=== PATIENT | female | born 1940 | race Caucasian/White ===

== ENCOUNTER 2016-04-25 15:37 | Inpatient (IN) ==
[2016-04-25] MEDS ORDERED: levoFLOXacin 750 MG TABLET PO ONE (15:49)
[2016-04-25] MEDS ORDERED: 0.9 % Sodium Chloride 1,000 ML IVC ONE (15:49)
[2016-04-25] MEDS ORDERED: Ipratropium/Albuterol Neb 3 ML IH ONE (15:49)
[2016-04-25] MEDS ORDERED: methylPREDNISolone 125 MG/2 ML VIAL IVP ONE (15:49)
[2016-04-25] MEDS ORDERED: HYDROcodone BIT/Homatropine 5 MG TABLET PO ONE (15:52)
[2016-04-25 17:36] LABS: VBG HCO3 27.6 mEq/L (21-27); VBG PH 7.48 pH Units (7.32-7.42)
[2016-04-25 17:44] LABS: BUN/Creatinine Ratio 19 (6-26); Blood Urea Nitrogen 18 mg/dL (7-20); Calcium 9.4 mg/dL (8.6-10.8); Carbon Dioxide 24 mEq/L (19-29); Chloride 105 mEq/L (98-109); Glucose 203 mg/dL (70-99); Osmolality,Calculated 300 (280-300); Potassium 3.9 mEq/L (3.5-4.5); Sodium 141 mEq/L (136-145); eGFR For African Americans > 60 (> 60); eGFR For Non-African Americans 57 (> 60)
[2016-04-25 18:02] LABS: Basophils % 0.5 %; Eosinophils # 0.1 K/mcL (0.0-0.6); Eosinophils % 0.8 %; Hematocrit 49.3 % (35.3-44.9); Hemoglobin 15.2 g/dL (11.5-15.4); Immature Granulocytes % 0.5 % (0-4); Lymphocytes # 1.6 K/mcL (0.6-4.6); Mean Corpuscular HGB Conc 30.8 g/dL (31.6-35.5); Mean Corpuscular Hemoglobin 30.5 pg (28.0-33.3); Mean Corpuscular Volume 98.8 fL (83.0-100.0); Mean Platelet Volume 9.2 fL (9.4-12.4); Monocytes % 11.8 %; Neutrophils # 5.8 K/mcL (1.6-8.9); Platelet Count 244 K/mcL (140-400); Red Blood Count 4.99 M/mcL (3.82-4.97); Red Cell Distribution Width 13.2 % (11.5-14.5); Segmented Neutrophils % 67.4 %
--- NOTE | 2016-04-25 20:56 | Emergency Department Note ---
Disposition Clinical Impression: Hypoxemia Dyspnea Qualifiers: Dyspnea type: shortness of breath Qualified Code(s): R06.02 - Shortness of breath Disposition: Admitted As Inpatient General Adult HPI - General Chief complaint: ED Shortness of Breath/Dyspnea Stated complaint: [place] Time Seen by Provider: 04/25/16 15:47 Source: patient Limitations: no limitations Nursing Notes Reviewed: Yes Vital Signs Reviewed: Yes - History of Present Illness HPI Narrative: 75-year-old female who presents with complaints of dyspnea for approximately 2 days. She admits to cough, wheezing. She recently was diagnosed with a upper respiratory tract infection approximately 3 weeks ago. This seemed to improve but 2 days ago she again developed dyspnea. She went to urgent care today and was given 1 DuoNeb, followed be hypoxic and sent to the ER for further evaluation. Stable on arrival, mild hypoxia noted, mild tachypnea, rhonchi bilaterally on arrival. Denies sick or ill contacts. Pain Scale: 0 - Related Data Home Medications Medication Instructions Recorded Confirmed Insulin ASPART [NovoLOG] 40 unit SQ TID 01/23/15 03/28/15 Insulin DETEMIR [Levemir] 80 unit SQ BID 01/23/15 03/28/15 Levothyroxine [Synthroid] 175 mcg PO 0630 01/23/15 03/28/15 Multivitamin [Multi-Day Vitamins] 1 each PO DAILY 01/23/15 03/28/15 Nitroglycerin 0.4 mg SL Q5MIN PRN 01/23/15 03/28/15 Nystatin Cream [Mycostatin Cream] 1 appl TP TID 01/23/15 01/23/15 Nystatin POWDER [Nystop] 1 appl TP TID 01/23/15 01/23/15 Nystatin SUSP [Mycostatin 5 ml PO QID 01/23/15 01/23/15 Suspension] Vitamin D3/Folic Acid [Ortho D 1 each PO DAILY 01/23/15 03/28/15 3,775 Unit-1 mg Cap] Cyclobenzaprine 10 mg PO BID 03/28/15 03/28/15 Gabapentin 300 mg PO HS 03/28/15 03/28/15 Lipitor 80 mg PO DAILY 03/28/15 03/28/15 Lisinopril 20 mg PO DAILY 03/28/15 03/28/15 Toprol Xl 25 mg PO DAILY 03/28/15 03/28/15 Previous Rx's Medication Instructions Recorded Aspirin Enteric Coated [Aspirin EC] 81 mg PO DAILY #30 tablet. 12/20/14 Allergies Allergy/AdvReac Type Severity Reaction Status Date / Time metformin [From Glucophage] AdvReac Diarrhea Verified 01/23/15 09:38 All systems ED: reviewed and negative except as stated. Past Medical History - Past Medical History Medical history: Reports: arthritis, cancer, coronary artery disease, diabetes, hyperlipidemia, hypertension, myocardial infarction, renal disease, other Surgical history: Reports: appendectomy, cancer surgery, cholecystectomy, hysterectomy, orthopedic, other Psychiatric history: Reports: anxiety, depression [employer] history: Reports: non-contributory - Social History Smoking Status: Former smoker Smokeless Tobacco Status: No Alcohol use: Reports: none Drug use: Reports: none Physical Exam [place] warm and dry no acute distress Pupils are equal and reactive to light, extra occular muscle movements are normal, TMs are clear bilaterally Trachea is midline ronchi bilaterally with superimposed wheezing mild tachycardia. Abdomen is soft and nontender, no peritonitis, guarding Extremities are well-perfused Neurovascular exam shows cranial nerves II through XII grossly intact no focal neurological deficit - General Limitations: no limitations General appearance: alert Course Vital Signs Temperature 97.7 F 04/25/16 15:41 Pulse Rate 116 04/25/16 15:41 Respiratory Rate 24 04/25/16 15:41 Blood Pressure 167/51 04/25/16 15:41 O2 Sat by Pulse Oximetry 93 L 04/25/16 15:41 Temperature 97.7 F 04/25/16 15:41 Pulse Rate 110 04/25/16 18:30 Respiratory Rate 20 04/25/16 18:30 Blood Pressure 131/83 04/25/16 18:30 O2 Sat by Pulse Oximetry 96 04/25/16 18:30 Oxygen Delivery Oxygen Delivery Nasal Cannula Medical Decision Making - [facility] Narrative Medical decision making narrative: Dyspnea, hypoxia, lactic acidosis. She did have elevation of her lactate despite IV fluids. We will continue IV hydration, turning a lactate. Levaquin was initiated, arellano cultures obtained. Chest x-ray shows no acute findings are a CT of the chest was questioning a infiltrate versus superimposed mass., Will need further evaluation to rule out underlying neoplastic process. Discussed CT findings with patient. Bronchodilators given, steroids given, continue antibiotic therapy. Admitted to care of hospitalist team. EKG shows sinus tachycardia with normal axis, short [place] interval, nonspecific ST segment changes nonspecific EKG - Medical Records Medical records reviewed: Yes I reviewed the patient's medical records. - Lab Data Lab results reviewed: Yes I reviewed the patient's lab results. Result diagrams: 04/25/16 17:22 04/25/16 17:25 Lab Results 04/25/16 04/25/16 04/25/16 Range/Units 17:22 17:22 17:22 WBC 8.6 (4.3-11.1) K/mcL RBC 4.99 H (3.82-4.97) M/mcL Hgb 15.2 (11.5-15.4) g/dL Hct 49.3 H (35.3-44.9) % MCV 98.8 (83.0-100.0) fL MCH 30.5 (28.0-33.3) pg MCHC 30.8 L (31.6-35.5) g/dL RDW 13.2 (11.5-14.5) % Plt Count 244 (140-400) K/mcL MPV 9.2 L (9.4-12.4) fL Immature Gran % 0.5 (0-4) % Seg Neutrophils % 67.4 % Lymphocytes % 19.0 % Monocytes % 11.8 % Eosinophils % 0.8 % Basophils % 0.5 % Neutrophils # 5.8 (1.6-8.9) K/mcL Lymphocytes # 1.6 (0.6-4.6) K/mcL Monocytes # 1.0 (0.0-1.3) K/mcL Eosinophils # 0.1 (0.0-0.6) K/mcL Basophils # 0.0 (0.0-0.2) K/mcL VBG pH (7.32-7.42) pH Units VBG pCO2 (41-51) mmHg VBG pO2 (25-40) mmHg VBG HCO3 (21-27) mEq/L Sodium (136-145) mEq/L Potassium (3.5-4.5) mEq/L Chloride (98-109) mEq/L Carbon Dioxide (19-29) mEq/L BUN (7-20) mg/dL Creatinine (0.57-1.11) mg/dL Est GFR ( Amer) (> 60) Est GFR (Non-Af Amer) (> 60) BUN/Creatinine Ratio (6-26) Glucose (70-99) mg/dL Calculated Osmolality (280-300) Lactic Acid 2.4 H (0.5-2.2) mmol/L Calcium (8.6-10.8) mg/dL Troponin I 0.01 (0-0.03) ng/mL B-Natriuretic Peptide (0-100) pg/mL Specimen Rejected 04/25/16 04/25/16 04/25/16 Range/Units 17:22 17:22 17:22 WBC (4.3-11.1) K/mcL RBC (3.82-4.97) M/mcL Hgb (11.5-15.4) g/dL Hct (35.3-44.9) % MCV (83.0-100.0) fL MCH (28.0-33.3) pg MCHC (31.6-35.5) g/dL RDW (11.5-14.5) % Plt Count (140-400) K/mcL MPV (9.4-12.4) fL Immature Gran % (0-4) % Seg Neutrophils % % Lymphocytes % % Monocytes % % Eosinophils % % Basophils % % Neutrophils # (1.6-8.9) K/mcL Lymphocytes # (0.6-4.6) K/mcL Monocytes # (0.0-1.3) K/mcL Eosinophils # (0.0-0.6) K/mcL Basophils # (0.0-0.2) K/mcL VBG pH 7.48 H (7.32-7.42) pH Units VBG pCO2 37 L (41-51) mmHg VBG pO2 115 H (25-40) mmHg VBG HCO3 27.6 H (21-27) mEq/L Sodium (136-145) mEq/L Potassium (3.5-4.5) mEq/L Chloride (98-109) mEq/L Carbon Dioxide (19-29) mEq/L BUN (7-20) mg/dL Creatinine (0.57-1.11) mg/dL Est GFR ( Amer) (> 60) Est GFR (Non-Af Amer) (> 60) BUN/Creatinine Ratio (6-26) Glucose (70-99) mg/dL Calculated Osmolality (280-300) Lactic Acid (0.5-2.2) mmol/L Calcium (8.6-10.8) mg/dL Troponin I (0-0.03) ng/mL B-Natriuretic Peptide 30 (0-100) pg/mL Specimen Rejected Clotted 04/25/16 04/25/16 Range/Units 17:25 19:09 WBC (4.3-11.1) K/mcL RBC (3.82-4.97) M/mcL Hgb (11.5-15.4) g/dL Hct (35.3-44.9) % MCV (83.0-100.0) fL MCH (28.0-33.3) pg MCHC (31.6-35.5) g/dL RDW (11.5-14.5) % Plt Count (140-400) K/mcL MPV (9.4-12.4) fL Immature Gran % (0-4) % Seg Neutrophils % % Lymphocytes % % Monocytes % % Eosinophils % % Basophils % % Neutrophils # (1.6-8.9) K/mcL Lymphocytes # (0.6-4.6) K/mcL Monocytes # (0.0-1.3) K/mcL Eosinophils # (0.0-0.6) K/mcL Basophils # (0.0-0.2) K/mcL VBG pH (7.32-7.42) pH Units VBG pCO2 (41-51) mmHg VBG pO2 (25-40) mmHg VBG HCO3 (21-27) mEq/L Sodium 141 (136-145) mEq/L Potassium 3.9 (3.5-4.5) mEq/L Chloride 105 (98-109) mEq/L Carbon Dioxide 24 (19-29) mEq/L BUN 18 (7-20) mg/dL Creatinine 0.96 (0.57-1.11) mg/dL Est GFR ( Amer) > 60 (> 60) Est GFR (Non-Af Amer) 57 L (> 60) BUN/Creatinine Ratio 19 (6-26) Glucose 203 H (70-99) mg/dL Calculated Osmolality 300 (280-300) Lactic Acid 2.9 H (0.5-2.2) mmol/L Calcium 9.4 (8.6-10.8) mg/dL Troponin I (0-0.03) ng/mL B-Natriuretic Peptide (0-100) pg/mL Specimen Rejected
[2016-04-25] MEDS ORDERED: 0.9 % Sodium Chloride 1,000 ML IVC SCH (21:00)
[2016-04-25] MEDS ORDERED: Dextrose Gel 15 GM PO PRN ×2 (23:44)
[2016-04-25] MEDS ORDERED: Ondansetron 4 MG/2 ML VIAL IVP PRN (23:44)
[2016-04-25] MEDS ORDERED: *HR* Dextrose 50 % in Water (Syg) 50 ML SYRINGE IVP PRN (23:44)
[2016-04-25] MEDS ORDERED: Naloxone 0.4 MG/ML INJ IVP PRN (23:44)
[2016-04-25] MEDS ORDERED: D5% in Water 1,000 ML IV PRN (23:44)
[2016-04-25] MEDS ORDERED: *HR* Morphine 2 MG/ML SYRINGE IVP PRN (23:44)
[2016-04-25] MEDS ORDERED: 0.9 % Sodium Chloride w KCl 20 MEQ/1,000 ML MLS IVC SCH (23:45)
[2016-04-25] MEDS ORDERED: INSULIN DETEMIR 80 UNIT SQ SCH (23:45)
[2016-04-25] MEDS ORDERED: Nitroglycerin 0.4 MG TAB.SUBL SL PRN (23:53)
[2016-04-26] MEDS ORDERED: *HR* Heparin 5,000 UNIT/ML VIAL SQ SCH
[2016-04-26 00:15] LABS: Basophils % 0.3 %; Hematocrit 47.2 % (35.3-44.9); Hemoglobin 14.5 g/dL (11.5-15.4); Immature Granulocytes % 0.4 % (0-4); Lymphocytes # 0.6 K/mcL (0.6-4.6); Lymphocytes % 8.2 %; Mean Corpuscular HGB Conc 30.7 g/dL (31.6-35.5); Mean Corpuscular Hemoglobin 30.1 pg (28.0-33.3); Mean Corpuscular Volume 98.1 fL (83.0-100.0); Mean Platelet Volume 9.3 fL (9.4-12.4); Monocytes # 0.1 K/mcL (0.0-1.3); Monocytes % 0.8 %; Neutrophils # 6.5 K/mcL (1.6-8.9); Platelet Count 274 K/mcL (140-400); Red Blood Count 4.81 M/mcL (3.82-4.97); Red Cell Distribution Width 13.2 % (11.5-14.5); Segmented Neutrophils % 90.3 %
--- NOTE | 2016-04-26 00:20 | Internal Med History&Physical ---
Date of Encounter: 04/25/16 Time of Encounter: 23:25 Assessment and Plan (1) Pneumonia Current visit: Yes Status: Acute 1. Will follow blood cultures. 2. Collect sputum culture and nasal swab for influenza. 3. Will treat with IV antibiotics, oxygen, and aerosols PRN. 4. Will need close outpatient follow up with repeat CT scan within 2 months to document resolution and rule out malignancy. Discussed with patient at length and recommend she follow closely with PCP. Qualifiers: Pneumonia type: due to unspecified organism Laterality: right Lung location: upper lobe of lung Qualified Code(s): J18.1 - Lobar pneumonia, unspecified organism (2) Acute hypoxemic respiratory failure Current visit: Yes Status: Acute 1. Continue supportive measures with Oxygen and aerosols. 2. IF decompensates, will try BiPap and/or ETT/mechanical ventilation if necessary. (3) IDDM (insulin dependent diabetes mellitus) Current visit: Yes Status: Chronic 1. Continue home Levemir dosing and SSI. 2. Monitor glucose and adjust dosing as needed. (4) CAD (coronary artery disease) Current visit: Yes Status: Chronic 1. Monitor serial troponins and EKG. 2. Continue home meds as appropriate. Qualifiers: Coronary Disease-Associated Artery/Lesion type: [place] artery [place] vs. transplanted heart: [place] heart Associated angina: without angina Qualified Code(s): I25.10 - Atherosclerotic heart disease of [place] coronary artery without angina pectoris (5) DVT prophylaxis Current visit: Yes Status: Acute 1. Heparin SQ. Internal Medicine - H&P: HPI Chief complaint: SOB; productive cough Admitted From: Emergency Dept Plans for Post Hospital Care: Home History of present illness: Ms. Em is a 75 year old female [facility]2 week history of cough, chest congestion, shortness of breath, and subjective fevers and chills. She never sought treatment for this and her symptoms resolved roughly 5 days ago. Then 2 days ago, her symptoms returned and her cough was significant for a more productive of purulent sputum, shortness of breath was much worse, and she actually started wheezing which she has not done in several years. She also has some mild pleuritic chest pain with a productive cough. This prompted her to go to ER for evaluation where she was seen and diagnosed with presumptive pneumonia. She was subsequently admitted to hospitalist service. Upon my assessment of the patient, she feels much better after having received some aerosols, oxygen, and cough suppressant. She reiterates the above history. She denies any hemoptysis. She is a former smoker but quit about 30 years ago. I reviewed the CT scan report and discussed with her the findings. Although the history and exam are suggestive of pneumonia, close follow-up is recommended for the remote possibility of malignancy. She does have a history of kidney cancer treated surgically about 20 years ago by partial nephrectomy. She also had history of uterine cancer treated by hysterectomy. To her knowledge, there has been no recurrence of cancer. I explained this to the patient and recommended close follow-up with her PCP and repeat CT scan within 2 months. She voiced understanding and agrees with the recommendations. Past Med Surg Social Fam HX - Past Medical History Attestation: Yes The following information was validated with the patient. Source: patient, old records reviewed Medical history: arthritis, cancer (kidney cancer and uterine cancer), coronary artery disease, diabetes, hyperlipidemia, hypertension, myocardial infarction, renal disease, other Psychiatric history: anxiety, depression - Past Surgical History Surgical History: appendectomy, cancer surgery (partial nephrectomy), cholecystectomy, hysterectomy, orthopedic, other, JUAN/BSO - Social History Smoking Status: Former smoker Smokeless Tobacco Status: No Alcohol use: none Drug use: none Current living situation: Home, With Family Activity Level: Independent ambulation Recent Out of Country Travel Within the Last 8 Weeks: No - Family History Father Living Status: Hx Family Cardiac Disorders: Yes Mother Adopted: No Family Member Ethnicity: Non- Living Status: Hx Family Cardiac Disorders: Yes Hx Family Respiratory Disorders: No Hx Family Cancer: No Hx Family GI Disorders: No Hx Family Endocrine Disorder: No Hx Family Neuromuscular Disorders: No Hx Family Neurologic Disorders: No Hx Family HEENT Disorders: Yes Hx Family Autoimmune Disorders: No Internal Medicine - H&P: Meds Aspirin Enteric Coated [Aspirin EC] 81 mg PO DAILY #30 tablet. 12/20/14 [Rx] Insulin ASPART [NovoLOG] 40 unit SQ TID 01/23/15 [History] Insulin DETEMIR [Levemir] 80 unit SQ BID 01/23/15 [History] Levothyroxine [Synthroid] 175 mcg PO 0630 01/23/15 [History] Multivitamin [Multi-Day Vitamins] 1 each PO DAILY 01/23/15 [History] Nitroglycerin 0.4 mg SL Q5MIN PRN 01/23/15 [History] Nystatin Cream [Mycostatin Cream] 1 appl TP TID 01/23/15 [History] Nystatin POWDER [Nystop] 1 appl TP TID 01/23/15 [History] Nystatin SUSP [Mycostatin Suspension] 5 ml PO QID 01/23/15 [History] Vitamin D3/Folic Acid [Ortho D 3,775 Unit-1 mg Cap] 1 each PO DAILY 01/23/15 [ History] Cyclobenzaprine 10 mg PO BID 03/28/15 [History] Gabapentin 300 mg PO HS 03/28/15 [History] Lipitor 80 mg PO DAILY 03/28/15 [History] Lisinopril 20 mg PO DAILY 03/28/15 [History] Toprol Xl 25 mg PO DAILY 03/28/15 [History] Allergies metformin [From Glucophage] Adverse Reaction (Verified 01/23/15 09:38) Diarrhea - Constitutional Constitutional: chills, fever(s), no night sweats - EENT Eyes: no blurry vision, no change in vision Ears: no ear pain, no tinnitus Nose, mouth and throat: nasal congestion, no sinus pain, no sinus pressure, no sore throat - Cardiovascular Cardiovascular ROS IM: dyspnea, dyspnea on exertion, no chest pain, no diaphoresis, no syncope - Respiratory Respiratory: cough, dyspnea, dyspnea on exertion, wheezing, chest congestion, excessive phlegm production, change in phlegm color, pain with cough, no hemoptysis - Gastrointestinal Gastrointestinal: nausea, no abdominal pain, no diarrhea, no hematemesis, no hematochezia, no melena, no vomiting - Genitourinary Genitourinary: no dysuria, no flank pain, no hematuria - Musculoskeletal Musculoskeletal ROS IM: no arthralgias, no back pain - Integumentary Integumentary IM: no rash, no jaundice - Neurological Neurological ROS: no dizziness, no focal weakness, no headache(s) - Psychiatric Psychiatric: no anxiety, no depression - Endocrine Endocrine IM: polydipsia, polyuria, no cold intolerance, no heat intolerance - Hematologic/Lymphatic Hematologic/Lymphatic: no easy bruising, no lymphadenopathy - Allergic/Immunologic Allergic/Immunologic: wheezing, no GI upset with certain foods - Constitutional Vitals: Temp Pulse Resp BP Pulse Ox 98.4 F 115 16 153/95 97 04/25/16 23:47 04/25/16 23:47 04/25/16 23:47 04/25/16 23:47 04/25/16 23:47 General appearance: Present: cooperative, mild distress, A&O X 3, pleasant, answers questions appropriately - Head Head exam: Present: atraumatic, normal inspection - Expanded Head Exam Head exam expanded: Absent: abrasion, contusion, general tenderness - Eye Eye exam: Present: EOMI, normal appearance, PERRL. Absent: scleral icterus Pupils: Present: normal accommodation - ENT ENT exam: Present: mucous membranes dry, normal exam, normal oropharynx - Neck Neck exam general surgery: Present: full ROM, supple. Absent: lymphadenopathy, thyromegaly - Expanded Neck Exam Neck exam: Absent: carotid bruit - Respiratory Respiratory exam: Present: rales (RUL), respiratory distress (mild), rhonchi, wheezes (rare scattered). Absent: accessory muscle use, chest wall tenderness, CTAB, tachypnea - Cardiovascular Cardiovascular exam: Present: distant heart sounds, RRR, +S1, +S2. Absent: diastolic murmur, systolic murmur - GI/Abdominal GI/Abdominal exam: Present: normal bowel sounds, soft. Absent: guarding, hepatomegaly, mass, rebound, splenomegaly, tenderness - Extremities Exam Extremities exam: Present: full ROM, warm. Absent: calf tenderness, joint swelling - Back Exam Back exam: Present: normal inspection. Absent: CVA tenderness (L), CVA tenderness (R) - Neurological Exam Neurological exam: Present: alert, CN II-XII intact, oriented X3, no focal deficits - Psychiatric Psychiatric exam: Present: normal affect, normal mood - Skin Skin exam: Present: dry, warm. Absent: rash Internal Med - H&P Results - Labs CBC & Chem 7: 04/25/16 17:22 04/25/16 17:25 - EKG Data -: EKG Interpreted by Myself - EKG Data Prior EKG available for review: no EKG comments: 04/26/16 00:24 Sinus tachycardia; no acute ST-T changes - Diagnostic Studies Chest x-ray Status: image reviewed by me (hazy RUL; no definite infiltrate) CT scan - chest Additional comments: report reviewed
[2016-04-26 00:29] LABS: Albumin 2.9 g/dL (3.5-5.0); Albumin/Globulin Ratio 0.8 (1.1-2.2); Bilirubin,Total 0.5 mg/dL (0.2-1.2); Calcium 9.2 mg/dL (8.6-10.8); Chol/HDL Ratio 4.5 (0-4.9); Globulin 3.5 g/dL (2.4-3.5); Magnesium 1.7 mg/dL (1.6-2.6); Total Protein 6.4 g/dL (6.0-8.3)
[2016-04-26] MEDS ORDERED: *HR* Heparin 5,000 UNIT/ML VIAL IVP PRN ×2 (00:44)
[2016-04-26] MEDS ORDERED: *HR* Heparin 5,000 UNIT/ML VIAL IVP ONE (00:44)
[2016-04-26] MEDS ORDERED: Heparin 25,000 UNIT/500 ML D5W 25,000 UNIT/500 ML MLS IVC SCH (00:45)
--- NOTE | 2016-04-26 00:47 | Event Note ---
Date of Encounter: 04/26/16 Time of Encounter: 00:46 Repeat troponin is 0.86. Given CAD history and respiratory failure, will start heparin gtt and order ECHO in am. Suspect troponin elevation due to pneumonia and hypoxemia (demand ischemia), but will monitor and treat for ACS.
[2016-04-26] MEDS: Ipratropium/Albuterol Neb 3 ML IH SCH ×5 (01:11→22:24)
[2016-04-26] MEDS: Insulin DETEMIR 100 UNIT/ML per UNIT SQ SCH ×3 (01:27→20:47)
[2016-04-26] MEDS: 0.9 % Sodium Chloride 1,000 ML IVC SCH ×4 (01:53→20:46)
[2016-04-26] MEDS: Acetaminophen 325 MG TABLET PO PRN ×2 (06:19→14:56)
[2016-04-26] MEDS: Albuterol 2.5 MG/3 ML NEBULIZER IH PRN (08:02)
[2016-04-26] MEDS: FOLIC ACID PO SCH (08:25)
[2016-04-26] MEDS: VITAMIN D3 PO SCH (08:25)
[2016-04-26] MEDS: Metoprolol XL (24 HR) Succ 25 MG TAB.ER.24H PO SCH (08:33)
[2016-04-26] MEDS: Multivit/Ca/Min/Fe/FA 1 TAB TABLET PO SCH (08:33)
[2016-04-26] MEDS: Aspirin Enteric Coated 81 MG Tablet PO SCH (08:33)
[2016-04-26] MEDS: Insulin LISPRO 300 UNITS/3 ML VIAL SQ SCH ×3 (08:34→17:26)
[2016-04-26] MEDS ORDERED: Lisinopril 20 MG TABLET PO SCH (09:00)
[2016-04-26] MEDS: Azithromycin 500 MG in D5% in Water 250 ML IVPB SCH (09:38)
--- NOTE | 2016-04-26 11:14 | Internal Med Progress Note ---
Date of Encounter: 04/26/16 Time of Encounter: 11:11 - Assessment and plan (1) Pneumonia Current Visit: Yes Status: Acute Assessment and plan: Patient with both clinical and radiological findings consistent with pneumonia. CT scan of the chest revealed a nonspecific 4.2 cm focus of groundglass opacity within the perihilar partial of the right upper lobe demonstrating a few internal nodular foci. Based on the patient's history of malignancy, the differential diagnoses includes metastatic disease, although primary lung cancer cannot be ruled out. At this point we will continue with IV antibiotics , Rocephin and azithromycin. She had a mild elevation of troponins. I do believe that this mild troponin elevation secondary to the underlying infection. Chest pain, and the troponin went down when it was rechecked. Upon review of prior records, this is not the first time in which she has elevation of troponins. She had a similar event back in November 2014. At this point I will stop the heparin drip. The patient is a morbidly obese lady, she has an underlying obstructive sleep apnea. I ordered BiPAP while in the hospital. PT OT evaluation. Evaluation with our professor of social work Department will be requested. The patient reportedly does not use BiPAP or CPAP at home. She has an acute kidney injury, we will continue with iv hydration and stop ROOSEVELT inhibitor. Increased potassium levels, ROOSEVELT inhibitors were stopped, will give a dose of Kayexalate today. We will continue monitoring electrolytes tomorrow in a.m. Qualifiers: Pneumonia type: due to unspecified organism Laterality: right Lung location: upper lobe of lung Qualified Code(s): J18.1 - Lobar pneumonia, unspecified organism (2) Morbid obesity Current Visit: Yes Status: Acute Qualifiers: Obesity type: unspecified obesity type Qualified Code(s): E66.01 - Morbid ( severe) obesity due to excess calories (3) MALLORY (obstructive sleep apnea) Current Visit: Yes Status: Acute (4) DVT prophylaxis Current Visit: Yes Status: Acute (5) Dyspnea Current Visit: Yes Status: Acute Qualifiers: Dyspnea type: shortness of breath Qualified Code(s): R06.02 - Shortness of breath (6) CAD (coronary artery disease) Current Visit: Yes Status: Chronic Qualifiers: Coronary Disease-Associated Artery/Lesion type: [place] artery [place] vs. transplanted heart: [place] heart Associated angina: without angina Qualified Code(s): I25.10 - Atherosclerotic heart disease of [place] coronary artery without angina pectoris (7) IDDM (insulin dependent diabetes mellitus) Current Visit: Yes Status: Chronic (8) Acute kidney injury Current Visit: No Status: Acute - Time Spent With Patient 25 - 35 minutes - Subjective Interval history: Patient was seen and examined. She states that was complaining of cough and progressive shortness of breath for the last 3 weeks. Cough is productive. She denies chest pain. - Constitutional Vitals: Temp Pulse Resp BP Pulse Ox 98.3 F 114 20 114/74 95 04/26/16 10:07 04/26/16 10:07 04/26/16 10:07 04/26/16 10:07 04/26/16 10:07 General appearance: Present: cooperative, mild distress, A&O X 3, morbidly obese , pleasant, answers questions appropriately Exam: The patient is alert, awake, oriented, she is a moderately obese, patient lady. She does not seem to be in respiratory distress during my encounter with her. Breath sounds are diminished in both lung issa. No tenderness in the abdomen area. No tenderness in the lower extremities. - Head Head exam: Present: atraumatic, normocephalic - Eye Eye exam: Present: PERRL, conjuntiva pink, sclera anicteric Pupils: Present: PERRL - Neck Neck exam general surgery: Present: supple, trachea midline. Absent: lymphadenopathy - Respiratory Respiratory exam: Present: decreased breath sounds. Absent: accessory muscle use, rales, rhonchi, wheezes - Cardiovascular Cardiovascular exam: Present: RRR, +S1, +S2. Absent: diastolic murmur, gallop, rubs, systolic murmur - GI/Abdominal GI/Abdominal exam: Present: normal bowel sounds, soft, no peritoneal signs. Absent: distended, tenderness - Extremities Exam Extremities exam: Present: warm, radial pulses palpable and symetrical. Absent : calf tenderness, cyanotic, pedal edema - Neurological Exam Neurological exam: Present: CN II-XII intact, oriented X3, no focal deficits. Absent: pronater drift, facial droop, speech deficit - Skin Skin exam: Present: dry, intact Internal Medicine: Result - Labs CBC & Chem 7: 04/26/16 00:06 04/26/16 00:06 Labs: Short CBC 04/26/16 Range/Units 00:06 WBC 7.2 (4.3-11.1) K/mcL Hgb 14.5 (11.5-15.4) g/dL Hct 47.2 H (35.3-44.9) % Plt Count 274 (140-400) K/mcL Neutrophils # 6.5 (1.6-8.9) K/mcL BMP 04/26/16 00:06 Sodium 139 Potassium 5.0 H D Chloride 104 Carbon Dioxide 22 BUN 21 H Creatinine 1.22 H Glucose 493 H Calcium 9.2 Cardiac Enzymes 04/26/16 04/26/16 Range/Units 00:06 06:38 Troponin I 0.86 H* 0.01 (0-0.03) ng/mL Liver Function 04/26/16 Range/Units 00:06 Total Bilirubin 0.5 (0.2-1.2) mg/dL AST 26 (5-34) Units/L ALT 34 (0-55) Units/L Alkaline Phosphatase 154 H (38-126) Units/L Albumin 2.9 L (3.5-5.0) g/dL Consult Discharge Plan - Plan Referrals: Corinne Mullins, NUTRITION MANAGER [Primary Care Provider] -
[2016-04-26] MEDS ORDERED: Perflutren Lipid Microsphere 1.3 ML in 0.9 % Sodium Chloride 8.7 ML IVP ONE ×2 (11:56→12:15)
--- NOTE | 2016-04-26 15:09 | ECHO - Doppler Report ---
Echo with Imaging Enhancement Agent Name: Deanna Em Date of Study: 04/26/2016 Date: 1940 Ht: 68.0 in Medical Record#: [id number] Age: 75 Wt: 335.0 lb Gender: Female BSA: 2.54 Order #: [id number] Location: [facility] Room #: 3A45 Reading Physician: Jere Zheng DO, FACC, MAIKEL NICOLAS Primer Inserting Machine Adjuster: Kimberly Stoddard RVT, RDCS Ordering Physician: Duc Tejeda MD Primary Physician: Corinne Mullins CNP Indications: ELEVATED TROPONINS, Shortness of breath Impressions: LVEF 60-65%. Grossly normal LV chamber size, wall thickness and function. Mild left ventricular diastolic dysfunction. Right ventricle was not well visualized. Grossly, it appears to demonstrate normal function. Valves not well visualized. No obvious significant valvular dysfunction. No evidence of pulmonary hypertension identified. RVSP not well obtained and could be underestimated. Left Ventricular Wall Motion: Rest Echo Findings All wall segments showed normal motion. Findings: Study Quality * Technically sub-optimal due to body habitus. ECG Findings * Sinus tachycardia. Left Ventricle * LVEF 60-65%. * Grossly normal LV chamber size, wall thickness and function. * Mild left ventricular diastolic dysfunction. Right Ventricle * Right ventricle was not well visualized. Grossly, it appears to demonstrate normal function. Left Atrium * Mildly dilated left atrium. Right Atrium * Right atrium is not well visualized. Interatrial Septum * Interatrial septum not well evaluated. Aortic Valve * Aortic valve not well visualized. * No aortic regurgitation. * No aortic stenosis. Mitral Valve * Mitral valve not well visualized. * No mitral regurgitation. * No mitral stenosis. Tricuspid Valve * Tricuspid valve not well visualized. * Trace tricuspid regurgitation. * No evidence of pulmonary hypertension. RVSP not well obtained and could be underestimated. Pulmonic Valve * Pulmonic valve not well visualized. Aorta * Grossly, normally sized aortic root. Pericardium * The pericardium appears normal. IVC * The IVC is not well evaluated. Pulmonary Artery * Pulmonary artery not well visualized. History Hypertension Diabetes Hypercholesteremia Family History of CAD History of CAD/PTCA Myocardial Infarction 2014 a Previous Echo was performed. Measurements: BP: 114/ 74 2D Normal Values IVSd: .80 cm 0.6 - 1.0 cm LVIDd: 4.10 cm 3.7 - 5.6 cm LVPWd: 1.00 cm 0.6 - 1.1 cm LVIDs: 2.90 cm 1.5 - 3.6 cm AO: 2.60 cm < 4.0 cm LA: 2.70 cm 2.0 - 4.0cm %FS: 29.30 cm >25 % LA volume: 44 Mitral Valve Peak E:.66 m/sec Peak A:1.17 m/sec E/A Ratio:0.6 Tricuspid Valve TV Regurg Peak Grad: 10.00mmHg TV Regurg Peak Maurilio: 1.55m/sec Updated by Jere hZeng DO, FACAlfredo, MARIA ISABEL, MAIKEL on 04/26/2016 3:04:12 PM electronically signed on 04/26/2016 3:05:33 PM with status of Final Wall Motion Ramirez: 1=Normal, 2=Hypokinesis, 3=Akinesis, 4=Dyskinesis, 5=Aneurysmal, 6=Hyperkinetic, X=Not Visualized (Blank)=Missing
[2016-04-26] MEDS: *HR* Heparin 5,000 UNIT/ML VIAL SQ SCH (17:56)
[2016-04-26] MEDS: Insulin DETEMIR 100 UNIT/ML X5UNITS SQ SCH (20:50)
[2016-04-26] MEDS ORDERED: traMADol 50 MG TABLET PO PRN (20:59)
[2016-04-26] MEDS ORDERED: Ketorolac 15 MG/ML VIAL IM ONE (20:59)
[2016-04-26] MEDS: Loratadine 10 MG TABLET PO SCH (21:23)
[2016-04-26] MEDS: Fluticasone Propionate Nasal 50 MCG/SPRAY BOTTLE NS SCH (21:44)
[2016-04-27] MEDS: Benzonatate 100 MG CAPSULE PO PRN ×2 (00:16→13:37)
[2016-04-27 04:06] LABS: Basophils # 0.1 K/mcL (0.0-0.2); Basophils % 0.6 %; Eosinophils # 0.2 K/mcL (0.0-0.6); Eosinophils % 1.6 %; Hematocrit 39.6 % (35.3-44.9); Immature Granulocytes % 0.3 % (0-4); Lymphocytes # 2.5 K/mcL (0.6-4.6); Lymphocytes % 26.1 %; Mean Corpuscular HGB Conc 30.8 g/dL (31.6-35.5); Mean Corpuscular Hemoglobin 30.7 pg (28.0-33.3); Mean Corpuscular Volume 99.5 fL (83.0-100.0); Mean Platelet Volume 9.3 fL (9.4-12.4); Monocytes # 1.1 K/mcL (0.0-1.3); Monocytes % 11.6 %; Neutrophils # 5.7 K/mcL (1.6-8.9); Platelet Count 218 K/mcL (140-400); Red Blood Count 3.98 M/mcL (3.82-4.97); Red Cell Distribution Width 13.5 % (11.5-14.5); Segmented Neutrophils % 59.8 %
[2016-04-27 04:10] LABS: Hemoglobin 12.2 g/dL (11.5-15.4)
[2016-04-27] MEDS: Ipratropium/Albuterol Neb 3 ML IH SCH ×4 (04:17→21:01)
[2016-04-27 04:22] LABS: BUN/Creatinine Ratio 25 (6-26); Blood Urea Nitrogen 16 mg/dL (7-20); Calcium 7.3 mg/dL (8.6-10.8); Carbon Dioxide 26 mEq/L (19-29); Chloride 114 mEq/L (98-109); Glucose 151 mg/dL (70-99); Osmolality,Calculated 304 (280-300); Potassium 3.6 mEq/L (3.5-4.5); Sodium 145 mEq/L (136-145); eGFR For African Americans > 60 (> 60); eGFR For Non-African Americans > 60 (> 60)
[2016-04-27] MEDS: *HR* Heparin 5,000 UNIT/ML VIAL SQ SCH ×2 (06:15→18:01)
[2016-04-27] MEDS: Albuterol 2.5 MG/3 ML NEBULIZER IH PRN (06:39)
[2016-04-27] MEDS: Azithromycin 500 MG in D5% in Water 250 ML IVPB SCH (07:00)
[2016-04-27] MEDS: VITAMIN D3 PO SCH (07:37)
[2016-04-27] MEDS: FOLIC ACID PO SCH (07:37)
[2016-04-27] MEDS: Insulin LISPRO 300 UNITS/3 ML VIAL SQ SCH ×4 (07:49→16:58)
[2016-04-27] MEDS: Loratadine 10 MG TABLET PO SCH (07:51)
[2016-04-27] MEDS: Aspirin Enteric Coated 81 MG Tablet PO SCH (07:51)
[2016-04-27] MEDS: Fluticasone Propionate Nasal 50 MCG/SPRAY BOTTLE NS SCH (07:53)
[2016-04-27] MEDS: Metoprolol XL (24 HR) Succ 25 MG TAB.ER.24H PO SCH (07:55)
[2016-04-27] MEDS: Multivit/Ca/Min/Fe/FA 1 TAB TABLET PO SCH (07:55)
[2016-04-27] MEDS: Insulin DETEMIR 100 UNIT/ML X5UNITS SQ SCH ×2 (07:58→20:39)
--- NOTE | 2016-04-27 11:06 | Internal Med Progress Note ---
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 CT scan of the chest revealed a nonspecific 4.2 cm focus of groundglass opacity within the perihilar partial of the right upper lobe demonstrating a few internal nodular foci. Based on the patient's history of malignancy, the differential diagnoses includes metastatic disease, although primary lung cancer cannot be ruled out. At this point we will continue with IV antibiotics, Rocephin and azithromycin. Qualifiers: Pneumonia type: due to unspecified organism Laterality: right Lung location: upper lobe of lung Qualified Code(s): J18.1 - Lobar pneumonia, unspecified organism (4) IDDM (insulin dependent diabetes mellitus) Current Visit: Yes Status: Chronic Assessment and plan: Adjusted insulin therapy due to persistent hyperglycemia added Novolog 10units qAC continue Levemir continue sliding scale algorithm monitor fingerstick and blood glucose (5) MALLORY (obstructive sleep apnea) Current Visit: Yes Status: Acute Assessment and plan: Bipap at bedtime (6) CAD (coronary artery disease) Current Visit: Yes Status: Chronic Assessment and plan: No anginal symptoms present continue home medications Qualifiers: Coronary Disease-Associated Artery/Lesion type: [place] artery [place] vs. transplanted heart: [place] heart Associated angina: without angina Qualified Code(s): I25.10 - Atherosclerotic heart disease of [place] coronary artery without angina pectoris (7) DVT prophylaxis Current Visit: Yes Status: Acute Assessment and plan: Heparin SQ (8) Morbid obesity Current Visit: Yes Status: Chronic Assessment and plan: The patient is a morbidly obese, she has an underlying obstructive sleep apnea. BiPAP while in the hospital. PT OT evaluation. Qualifiers: Obesity type: unspecified obesity type Qualified Code(s): E66.01 - Morbid ( severe) obesity due to excess calories - Subjective Interval history: Patient seen and examined present at that site. Patient reports of having difficulty breathing and states she is not on home oxygen. Reports of having 30+ years of smoking history. No overnight issues were reported - Constitutional Vitals: Temp Pulse Resp BP Pulse Ox 98.0 F 102 18 109/73 96 04/27/16 07:05 04/27/16 07:05 04/27/16 07:05 04/27/16 07:05 04/27/16 08:00 General appearance: Present: cooperative, mild distress (mild respiratory distress ), A&O X 3, morbidly obese, pleasant, answers questions appropriately - Head Head exam: Present: atraumatic, normocephalic - Eye Eye exam: Present: conjuntiva pink, sclera anicteric - Respiratory Respiratory exam: Present: wheezes (bilateral expiratory wheezing, coarse breath sounds bilaterally) - Cardiovascular Cardiovascular exam: Present: RRR, +S1, +S2 - GI/Abdominal GI/Abdominal exam: Present: distended (obese), normal bowel sounds, soft. Absent: tenderness - Extremities Exam Extremities exam: Present: warm, radial pulses palpable and symetrical. Absent : calf tenderness, pedal edema Internal Medicine: Result - Labs CBC & Chem 7: 04/27/16 03:58 04/27/16 03:58 Labs: Short CBC 04/27/16 Range/Units 03:58 WBC 9.6 (4.3-11.1) K/mcL Hgb 12.2 D (11.5-15.4) g/dL Hct 39.6 (35.3-44.9) % Plt Count 218 (140-400) K/mcL Neutrophils # 5.7 (1.6-8.9) K/mcL BMP 04/27/16 03:58 Sodium 145 Potassium 3.6 D Chloride 114 H Carbon Dioxide 26 BUN 16 Creatinine 0.63 Glucose 151 H Calcium 7.3 L D Consult Discharge Plan - Plan Referrals: Corinne Mullins, MAIL DELIVERER [Primary Care Provider] -
[2016-04-27] MEDS: predniSONE 20 MG TABLET PO SCH (14:17)
[2016-04-28] MEDS ORDERED: *HR* Metoprolol 5 MG/5 ML VIAL IVP PRN (00:08)
[2016-04-28] MEDS ORDERED: Levalbuterol Neb 1.25 MG/3 ML IH PRN (00:08)
[2016-04-28 05:32] LABS: Basophils % 0.4 %; Eosinophils % 0.2 %; Hematocrit 44.6 % (35.3-44.9); Immature Granulocytes % 0.8 % (0-4); Lymphocytes # 2.3 K/mcL (0.6-4.6); Lymphocytes % 20.2 %; Mean Corpuscular HGB Conc 31.2 g/dL (31.6-35.5); Mean Corpuscular Hemoglobin 30.5 pg (28.0-33.3); Mean Corpuscular Volume 97.8 fL (83.0-100.0); Mean Platelet Volume 9.5 fL (9.4-12.4); Monocytes % 8.3 %; Platelet Count 282 K/mcL (140-400); Red Blood Count 4.56 M/mcL (3.82-4.97); Red Cell Distribution Width 13.4 % (11.5-14.5); Segmented Neutrophils % 70.1 %
[2016-04-28 05:35] LABS: Hemoglobin 13.9 g/dL (11.5-15.4)
[2016-04-28 05:44] LABS: BUN/Creatinine Ratio 25 (6-26); Blood Urea Nitrogen 17 mg/dL (7-20); Carbon Dioxide 29 mEq/L (19-29); Chloride 106 mEq/L (98-109); Glucose 229 mg/dL (70-99); Magnesium 1.8 mg/dL (1.6-2.6); Osmolality,Calculated 305 (280-300); Phosphorous 2.4 mg/dL (2.3-4.7); Sodium 143 mEq/L (136-145); eGFR For African Americans > 60 (> 60); eGFR For Non-African Americans > 60 (> 60)
[2016-04-28 05:45] LABS: Calcium 9.3 mg/dL (8.6-10.8)
[2016-04-28] MEDS: *HR* Heparin 5,000 UNIT/ML VIAL SQ SCH (06:35)
[2016-04-28] MEDS: Azithromycin 500 MG in D5% in Water 250 ML IVPB SCH (07:52)
[2016-04-28] MEDS: Insulin LISPRO 300 UNITS/3 ML VIAL SQ SCH ×4 (07:56→12:04)
[2016-04-28] MEDS: Aspirin Enteric Coated 81 MG Tablet PO SCH (07:57)
[2016-04-28] MEDS: Fluticasone Propionate Nasal 50 MCG/SPRAY BOTTLE NS SCH (07:57)
[2016-04-28] MEDS: Loratadine 10 MG TABLET PO SCH (07:57)
[2016-04-28] MEDS: Insulin DETEMIR 100 UNIT/ML X5UNITS SQ SCH (07:58)
[2016-04-28] MEDS: Metoprolol XL (24 HR) Succ 25 MG TAB.ER.24H PO SCH (08:00)
[2016-04-28] MEDS: Multivit/Ca/Min/Fe/FA 1 TAB TABLET PO SCH (08:00)
[2016-04-28] MEDS: predniSONE 20 MG TABLET PO SCH (08:00)
[2016-04-28] MEDS ORDERED: Cholecalciferol (D-3) 1,000 UNIT TABLET PO SCH (09:00)
[2016-04-28] MEDS ORDERED: Folic Acid 1 MG TABLET PO SCH (09:00)
--- NOTE | 2016-04-28 10:55 | Discharge Summary ---
Date of Encounter: 04/28/16 Time of Encounter: 10:51 - Discharge Diagnosis (1) COPD (chronic obstructive pulmonary disease) Priority: Primary Status: Acute Qualifiers: COPD type: unspecified COPD Qualified Code(s): J44.9 - Chronic obstructive pulmonary disease, unspecified (2) Dyspnea Priority: Primary Status: Acute Qualifiers: Dyspnea type: shortness of breath Qualified Code(s): R06.02 - Shortness of breath (3) Pneumonia Priority: Primary Status: Acute Qualifiers: Pneumonia type: due to unspecified organism Laterality: right Lung location: upper lobe of lung Qualified Code(s): J18.1 - Lobar pneumonia, unspecified organism (4) IDDM (insulin dependent diabetes mellitus) Priority: Secondary Status: Chronic (5) MALLORY (obstructive sleep apnea) Priority: Secondary Status: Acute (6) CAD (coronary artery disease) Priority: Secondary Status: Chronic Qualifiers: Coronary Disease-Associated Artery/Lesion type: [place] artery [place] vs. transplanted heart: [place] heart Associated angina: without angina Qualified Code(s): I25.10 - Atherosclerotic heart disease of [place] coronary artery without angina pectoris (7) DVT prophylaxis Priority: Secondary Status: Acute (8) Morbid obesity Priority: Secondary Status: Chronic Qualifiers: Obesity type: unspecified obesity type Qualified Code(s): E66.01 - Morbid ( severe) obesity due to excess calories - Discharge Medications Prescriptions: Albuterol Sulfate [Albuterol Inhaler] 2 puff IH Q4HR PRN #4 hfa.aer.ad PRN Reason: Shortness Of Breath Azithromycin [Zithromax] 250 mg PO Q24H #2 tablet GuaiFENesin ER [Mucinex] 600 mg PO BID #20 tbbp.12hr Ipratropium/Albuterol Neb [Duoneb] 3 ml IH Q6H #2 vial.neb PredniSONE 40 mg PO DAILY #3 tablet Home Medications: Aspirin Enteric Coated [Aspirin EC] 81 mg PO DAILY #30 tablet. 12/20/14 [Rx] Insulin DETEMIR [Levemir] 80 unit SQ BID 01/23/15 [History] Levothyroxine [Synthroid] 175 mcg PO DAILY 01/23/15 [History] Atorvastatin Calcium [Lipitor] 80 mg PO DAILY 03/28/15 [History] Lisinopril [Zestril] 20 mg PO DAILY 03/28/15 [History] Metoprolol XL (24 HR) Succ [Toprol Xl] 25 mg PO DAILY 03/28/15 [History] Cholecalciferol (D-3) [Vitamin D] 1,000 unit PO DAILY 04/26/16 [History] Duloxetine HCl 60 mg PO DAILY 04/26/16 [History] Insulin LISPRO [Humalog] 30 - 40 unit SQ TIDWM 04/26/16 [History] Meloxicam 7.5 mg PO DAILY 04/26/16 [History] Albuterol Sulfate [Albuterol Inhaler] 2 puff IH Q4HR PRN #4 hfa.aer.ad 04/28/16 [Rx] Azithromycin [Zithromax] 250 mg PO Q24H #2 tablet 04/28/16 [Rx] GuaiFENesin ER [Mucinex] 600 mg PO BID #20 tbbp.12hr 04/28/16 [Rx] Ipratropium/Albuterol Neb [Duoneb] 3 ml IH Q6H #2 vial.neb 04/28/16 [Rx] PredniSONE 40 mg PO DAILY #3 tablet 04/28/16 [Rx] Allergies/Adverse Reactions: Allergies metformin [From Glucophage] Adverse Reaction (Verified 01/23/15 09:38) Diarrhea Procedures/tests Complete & Pending: Procedures Performed prior 72 hours Category Date Time Status EV echocardiogram w enhance Stat Y 04/26/16 00:44 Completed Date of admission: 04/25/16 23:45 Primary care physician: Corinne Mullins, Consults: 04/28/16 08:01 Consult to Physical Therapy [CONS] Stat Comment: Evaluate, develop and implement POC Discharging clinician: Mercedez Warren Anticipated date of discharge: 04/28/16 - Patient Status Disposition: Home, Self-Care Condition: Fair Functional capacity at discharge: bed bound (refuses to ambulate) Overall status at discharge: patient is back to baseline - Discharge Instructions Follow Up With: Corinne Mullins CNP [Primary Care Provider] - 05/04/16 8:30 am Forms: ED Satisfaction Letter Additional Instructions: Please follow up with your primary care physician within five days after your discharge from the hospital. Please ask your PCP about a pulmonary referral and a repeat of your PFTs. Please follow up with your bankruptcy assistant within one week after your discharge from the hospital. Please inform your PCP about the new events of your hospitalization and that you are requiring Oxygen and systemic steroids at this time and it may be secondary undiagnosed COPD. Please take the antibiotics and prednisone as prescribed. You are also given prescriptions for your inhalers. Please use them as needed. Please resume all your home medications as prescribed by your primary care physician. - Diet and Activity Activity: resume usual activities as tolerated, wear oxygen at all times Diet: diabetic diet, low fat, low cholesterol, low salt diet Hospital course: Ms. Em is a 75 year old female with PMH of CAD, DM, COPD, CHF, HLD, HTN, GA, CKD, Morbid obesity who was admitted for management of shortness of breath and found to have underlying PNA. Patient was started on IV Abx for CAP. She was also found to have one time reading of an elevated TNI without any EKG changes or chest pain. The TNI normalized. Pt also had a 2D echo which showed mild LV diastolic dysfunction. She continue to have difficulty breathing despite being on antibiotics. Reported of being a former smoker, having history of 30+years of smoking 1-2ppd. She was started on oral prednisone therapy. Her symptoms significantly improved. She was also evaluated for the need of home oxygen. She qualified for home oxygen after the 6-minute walk test. At this time, she is resting comfortably in bed with present at bedside. She reports of feeling significantly better. States she is bed bound except for using bathroom. She refused physical therapy and home health services. Reports of having her family assisting with everything she needs at home. She will be discharged to home with oxygen, oral steroids, and oral antibiotics. She is to follow up with her PCP within five days after her discharge. She is to follow up with pulmonary and cardiology after discharge. - Time Spent with Patient Total time spent providing and/or coordinating discharge services: Greater than 30 minutes - Constitutional Vitals: Temp Pulse Resp BP Pulse Ox 97.6 F 107 18 135/81 94 L 04/28/16 06:31 04/28/16 06:31 04/28/16 06:31 04/28/16 06:31 04/28/16 07:00 General appearance: Present: cooperative, A&O X 3, morbidly obese, pleasant, no acute distress, answers questions appropriately - Head Head exam: Present: atraumatic, normocephalic - Eye Eye exam: Present: normal appearance, conjuntiva pink, sclera anicteric - Respiratory Respiratory exam: Absent: respiratory distress, wheezes (equal air entry bilaterally) - Cardiovascular Cardiovascular exam: Present: RRR, +S1, +S2 - GI/Abdominal GI/Abdominal exam: Present: distended (obese), normal bowel sounds, soft. Absent: tenderness - Extremities Exam Extremities exam: Present: pedal edema (bilateral ankle edema), warm, radial pulses palpable and symetrical. Absent: calf tenderness - Neurological Exam Neurological exam: Present: alert, oriented X3 - Psychiatric Psychiatric exam: Present: normal affect, normal mood
[2016-04-28 11:33] VITALS: BP 150/83
--- NOTE | 2016-04-28 16:17 | Electrocardiograph Report ---
[address] [address] Test Date: 2016-04-25 Pat Name: Deanna Em Department: 103 Room: 3A45 Gender: F Marble Cutter: : 1940 Requested By: Juvencio Alves Order Number: [id number] Reading MD: Trisha Coleman Measurements Intervals [place] Rate: 114 P: 46 PA: 114 QRS: 5 QRSD: 82 T: 77 QT: 308 QTc: 376 Interpretive Statements SINUS TACHYCARDIA WITH SHORT PA INTERVAL WITH OCCASIONAL SUPRAVENTRICULAR PREMATURE COMPLEXES NONSPECIFIC T-WAVE ABNORMALITY ABNORMAL RHYTHM ECG Electronically Signed On 04-28-2016 16:15:37 EST by Trisha Coleman
== END 2016-04-28 17:30 | disposition home or self-care (01) | DRG 190 ==
LOC: EMEROO 15:37 → 3ANU 15:37 → SUATTDRO 23:45
PROVIDERS: ADMIT Pediatrics; ATTEND Internal Medicine

== ENCOUNTER 2017-04-22 23:11 | Inpatient (IN) ==
[2017-04-22] MEDS ORDERED: *HR* OxyCODONE/APAP 5/325 TABLET PO ONE (23:20)
--- NOTE | 2017-04-22 23:30 | Emergency Department Note ---
Disposition Clinical Impression: Humeral fracture Qualifiers: Encounter type: initial encounter Humerus Location: proximal Fracture type: closed Fracture morphology: unspecified fracture morphology Laterality: left Qualified Code(s): S42.202A - Unspecified fracture of upper end of left humerus , initial encounter for closed fracture Fall Qualifiers: Encounter type: initial encounter Qualified Code(s): W19.XXXA - Unspecified fall, initial encounter Disposition: Admitted As Inpatient Condition: Good Fall HPI - General Chief Complaint: ED Fall Stated Complaint: FALL, LEFT ARM/SHOULDER PAIN Time Seen by Provider: 04/22/17 23:13 Source: patient, family, EMS Mode of arrival: EMS Limitations: physical limitation Nursing Notes Reviewed: Yes Vital Signs Reviewed: Yes - History of Present Illness HPI Narrative: 76-year-old morbidly obese female presents to the ER with a chief complaint of fall and left shoulder injury. Patient reports she was transitioning from her potty chair whenever her legs went out from under her and she landed on her left side. No head injury or loss of consciousness. Reports pain to her left shoulder and arm. She is right-hand dominant. No numbness tingling or paresthesias. No prior injury to the shoulder. No other complaints. Pt Subjective Complaint: fall Onset (ago): Just OFFICE SPEC Fall From: standing Fall Witnessed: yes Place Fall Occurred: home Loss of Consciousness: none Prolonged Down Time?: no Symptoms Prior to Fall: none Context: tripped/slipped Location of injury - extremities: Left: shoulder, arm Associated symptoms (after fall): Denies: headache, neck pain, numbness, weakness, chest pain, shortness of breath, abdominal pain - Related Data Home Medications Medication Instructions Recorded Confirmed Insulin DETEMIR [Levemir] 80 unit SQ BID 01/23/15 09/23/16 Levothyroxine [Synthroid] 175 mcg PO DAILY 01/23/15 09/23/16 Atorvastatin Calcium [Lipitor] 80 mg PO DAILY 03/28/15 09/23/16 Lisinopril [Zestril] 20 mg PO DAILY 03/28/15 09/23/16 Metoprolol XL (24 HR) Succ [Toprol 25 mg PO DAILY 03/28/15 09/23/16 Xl] Duloxetine HCl 60 mg PO DAILY 04/26/16 09/23/16 Insulin LISPRO [Humalog] 30 - 40 unit SQ TIDWM MDD PER 04/26/16 09/23/16 SLIDING SCALE Gabapentin [Neurontin] 600 mg PO TID 09/23/16 09/23/16 Multivitamin [One Daily Essential] 1 tab PO DAILY 09/23/16 09/23/16 Oxygen 4 l NS CONT 09/23/16 09/23/16 Tolterodine LA (24 HR) [Detrol LA] 4 mg PO DAILY 09/23/16 09/23/16 Previous Rx's Medication Instructions Recorded Aspirin Enteric Coated [Aspirin EC] 81 mg PO DAILY #30 tablet.dr 12/20/14 Albuterol Sulfate [Albuterol 2 puff IH Q4HR PRN #4 hfa.aer.ad 04/28/16 Inhaler] Ipratropium/Albuterol Neb [Duoneb] 3 ml IH Q6H #2 vial.neb 04/28/16 predniSONE [PredniSONE] 40 mg PO DAILY #3 tablet 04/28/16 Walker [Ultra-Light Rollator] 1 each MC DAILY #1 each 09/24/16 predniSONE [PredniSONE] 10 mg PO DAILY #12 tablet 09/25/16 Allergies Allergy/AdvReac Type Severity Reaction Status Date / Time hydrocodone [From Vicodin] AdvReac Nausea Verified 09/22/16 17:03 metformin [From Glucophage] AdvReac Diarrhea Verified 01/23/15 09:38 All systems ED: reviewed and negative except as stated. Cardiovascular: Denies: chest pain Respiratory: Denies: dyspnea Gastrointestinal: Denies: abdominal pain Musculoskeletal: Reports: other (L shoulder pain). 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 - Social History Smoking Status: Former smoker Alcohol use: Reports: none Drug use: Reports: none Physical Exam - General Limitations: physical limitation General appearance: alert, in no apparent distress - Head Head exam: atraumatic, normocephalic - Eye Eye exam: Present: normal appearance - ENT ENT exam: normal exam, normal oropharynx - Neck Neck exam: Present: normal inspection, full ROM - Chest Chest inspection: Present: normal inspection, symmetric chest wall rise - Respiratory Respiratory exam: Present: normal lung sounds bilaterally - Cardiovascular Cardiovascular exam: Present: regular rate, normal rhythm, normal heart sounds - Abdominal Exam Abdominal exam: Present: soft, Non-Tender. Absent: tenderness, distention, rigidity - Extremities Exam Extremities exam: Present: normal inspection - Expanded Upper Extremity Exam Shoulder exam: Present: normal inspection, tenderness (Patient has tenderness over the anterior aspect of the left shoulder, mid humerus as well as to the left elbow.). Absent: full ROM Arm exam: Present: normal inspection Elbow exam: Present: normal inspection Forearm/Wrist exam: Present: normal inspection Hand exam: Present: normal inspection Vascular exam: Normal: capillary refill, radial pulse - Expanded Lower Extremity Exam Hip/Pelvis exam: Present: normal inspection, full ROM Upper leg exam: Present: normal inspection, full ROM Knee exam: Present: normal inspection, full ROM Lower leg exam: Present: normal inspection, full ROM Ankle exam: Present: normal inspection, full ROM Foot/toe exam: Present: normal inspection, full ROM - Skin Skin exam: Present: warm, dry Course Course Narrative: Patient seen and examined. Mechanical fall. We will get x-rays of the left shoulder arm and elbow. - Reevaluation(s) Reevaluation #1: Discussed results of imaging with the patient. She is unable to care for herself at home with this injury. We will admit for orthopedic evaluation as well as likely nursing facility placement. Vital Signs Temperature 98.1 F 04/22/17 23:14 Pulse Rate 115 04/22/17 23:14 Respiratory Rate 22 04/22/17 23:14 Blood Pressure 161/101 04/22/17 23:14 O2 Sat by Pulse Oximetry 98 04/22/17 23:14 Temperature 98.1 F 04/22/17 23:14 Pulse Rate 112 04/23/17 03:10 Respiratory Rate 18 04/23/17 03:10 Blood Pressure 132/78 04/23/17 03:10 O2 Sat by Pulse Oximetry 98 04/23/17 03:10 Oxygen Delivery Oxygen Delivery Room Air Fall - [facility] Narrative Medical decision making narrative: 76-year-old female presents to the ER due to mechanical fall at home. Pain localized to the left shoulder. X-rays revealing a proximal humeral fracture with comminution and impaction. She is neurovascularly intact otherwise. She is admitted to the hospitalist service for further evaluation and management. - Lab Data Lab results reviewed: Yes I reviewed the patient's lab results. Result diagrams: 04/23/17 01:01 04/23/17 01:01 Lab Results 04/23/17 04/23/17 04/23/17 Range/Units 01:01 01:01 01:01 WBC 15.7 H (4.3-11.1) K/mcL RBC 4.65 (3.82-4.97) M/mcL Hgb 14.6 (11.5-15.4) g/dL Hct 46.9 H (35.3-44.9) % MCV 100.9 H (83.0-100.0) fL MCH 31.4 (28.0-33.3) pg MCHC 31.1 L (31.6-35.5) g/dL RDW 14.3 (11.5-14.5) % Plt Count 298 (140-400) K/mcL MPV 9.8 (9.4-12.4) fL Immature Gran % 0.8 (0-4) % Seg Neutrophils % 84.1 % Lymphocytes % 7.5 % Monocytes % 7.1 % Eosinophils % 0.1 % Basophils % 0.4 % Neutrophils # 13.2 H (1.6-8.9) K/mcL Lymphocytes # 1.2 (0.6-4.6) K/mcL Monocytes # 1.1 (0.0-1.3) K/mcL Eosinophils # 0.0 (0.0-0.6) K/mcL Basophils # 0.1 (0.0-0.2) K/mcL PT 11.5 (9.4-12.1) Seconds INR 1.1 Sodium 141 (136-145) mEq/L Potassium 4.1 (3.5-5.1) mEq/L Chloride 101 (98-107) mEq/L Carbon Dioxide 32 H (23-29) mEq/L BUN 14 (8-23) mg/dL Creatinine 0.80 (0.60-1.20) mg/dL Est GFR ( Amer) > 60 (> 60) Est GFR (Non-Af Amer) > 60 (> 60) BUN/Creatinine Ratio 18 (6-26) Glucose 250 H (70-105) mg/dL Calculated Osmolality 301 H (280-300) Calcium 9.0 (8.6-10.3) mg/dL - Radiology Data Radiology results reviewed: Yes I reviewed the patient's radiology results. Elbow X-Ray 04/22/17 23:20 IMPRESSION: Acute, severely comminuted, impacted fracture of left proximal humerus. No convincing evidence of left shoulder dislocation. Apparent cortical discontinuity involving the radial head may be artifactual. This is not well evaluated to patient positioning, and overlying soft tissue structures. Repeat left elbow radiographs may be obtained as clinically warranted. Left basilar pulmonary opacity. This is partially imaged with a dedicated chest radiograph may be obtained as clinically warranted. Correlate with any concern of acute intrathoracic injury. D/ / Cole Gandhi MD / Cole Gandhi MD Interpreting Provider: Cole Gandhi MD Humerus X-Ray 04/22/17 23:20 IMPRESSION: Acute, severely comminuted, impacted fracture of left proximal humerus. No convincing evidence of left shoulder dislocation. Apparent cortical discontinuity involving the radial head may be artifactual. This is not well evaluated to patient positioning, and overlying soft tissue structures. Repeat left elbow radiographs may be obtained as clinically warranted. Left basilar pulmonary opacity. This is partially imaged with a dedicated chest radiograph may be obtained as clinically warranted. Correlate with any concern of acute intrathoracic injury. D/ / Cole Gandhi MD / Cole Gandhi MD Interpreting Provider: Cole Gandhi MD Shoulder X-Ray 04/22/17 23:20 IMPRESSION: Acute, severely comminuted, impacted fracture of left proximal humerus. No convincing evidence of left shoulder dislocation. Apparent cortical discontinuity involving the radial head may be artifactual. This is not well evaluated to patient positioning, and overlying soft tissue structures. Repeat left elbow radiographs may be obtained as clinically warranted. Left basilar pulmonary opacity. This is partially imaged with a dedicated chest radiograph may be obtained as clinically warranted. Correlate with any concern of acute intrathoracic injury. D/ / Cole Gandhi MD / Cole Gandhi MD Interpreting Provider: Cole Gandhi MD S.Sarah.Andrea - S.Mary Situation: Demographics, MOA Background: Presenting Complaint, Relevant PMH, Meds, & Allergies Assessment: Course and respsone to treatment, Exam Concerns, Patient/Family Expectation, Pertinant Lab Results Recommendation: Barrier(s) to disposition, Recommendation based on pending studies, treatments, or consults S.B.A.R. Report Given to: Dr. Tejeda Attestation Statement - Attestation Attestation: I, Emerson Diehl MD, personally evaluated this patient and discussed their management with the resident physician. I reviewed the resident's note and agree with the documented findings, medical decision making, and plan of care. 76-year-old female presents to the emergency department by EMS after she had a fall at home shortly prior to arrival. Patient is morbidly obese and was transferring from her bedside potty chair when her foot slipped causing her to fall. She complains of pain in the left shoulder and left upper arm area. She denies hitting her head. No other pain or injury. Patient was unable to get up and is unable to even sit up or move due to the severe pain in the left shoulder. On examination patient is a well-developed morbidly obese elderly female in no acute distress. She is alert and oriented 3. There is no cyanosis or diaphoresis. Breath sounds are equal bilaterally. Heart regular. Patient has marked tenderness to palpation of the entire left shoulder and upper arm region. No tenderness of the elbow. No tenderness of the wrist or forearm. Neurovascular function intact distally. Superficial abrasion to the right elbow noted. X-ray of the left shoulder shows a fracture of the proximal humerus. Labs reviewed. Due to obesity and immobility the hospitalist, Dr. Tejeda, was consulted and accepted admission of the patient.
[2017-04-23] MEDS ORDERED: *HR* FentaNYL (PF) 100 MCG/2 ML VIAL IVP ONE ×2 (01:01→02:53)
[2017-04-23 01:20] LABS: INR 1.1; Prothrombin Time 11.5 Seconds (9.4-12.1)
[2017-04-23 01:35] LABS: BUN/Creatinine Ratio 18 (6-26); Blood Urea Nitrogen 14 mg/dL (8-23); Carbon Dioxide 32 mEq/L (23-29); Chloride 101 mEq/L (98-107); Glucose 250 mg/dL (70-105); Osmolality,Calculated 301 (280-300); Potassium 4.1 mEq/L (3.5-5.1); Sodium 141 mEq/L (136-145); eGFR For African Americans > 60 (> 60); eGFR For Non-African Americans > 60 (> 60)
[2017-04-23 02:14] LABS: Basophils # 0.1 K/mcL (0.0-0.2); Basophils % 0.4 %; Eosinophils % 0.1 %; Hematocrit 46.9 % (35.3-44.9); Hemoglobin 14.6 g/dL (11.5-15.4); Immature Granulocytes % 0.8 % (0-4); Lymphocytes # 1.2 K/mcL (0.6-4.6); Lymphocytes % 7.5 %; Mean Corpuscular HGB Conc 31.1 g/dL (31.6-35.5); Mean Corpuscular Hemoglobin 31.4 pg (28.0-33.3); Mean Corpuscular Volume 100.9 fL (83.0-100.0); Mean Platelet Volume 9.8 fL (9.4-12.4); Monocytes # 1.1 K/mcL (0.0-1.3); Monocytes % 7.1 %; Neutrophils # 13.2 K/mcL (1.6-8.9); Platelet Count 298 K/mcL (140-400); Red Blood Count 4.65 M/mcL (3.82-4.97); Red Cell Distribution Width 14.3 % (11.5-14.5); Segmented Neutrophils % 84.1 %
[2017-04-23] MEDS ORDERED: *HR* Dextrose 50 % in Water (Syg) 50 ML SYRINGE IVP PRN (04:39)
[2017-04-23] MEDS ORDERED: D5% in Water 1,000 ML IVC PRN (04:39)
[2017-04-23] MEDS ORDERED: Naloxone 0.4 MG/ML INJ IVP PRN (04:39)
[2017-04-23] MEDS ORDERED: Dextrose Gel 15 GM/37.5 ML TUBE PO PRN ×2 (04:39)
[2017-04-23] MEDS ORDERED: *HR* OxyCODONE Immed Rel 5 MG TABLET PO PRN (04:39)
--- NOTE | 2017-04-23 04:53 | Internal Med History&Physical ---
Date of Encounter: 04/23/17 Time of Encounter: 04:47 Assessment and Plan (1) Humeral fracture Current visit: Yes Status: Acute 1. Will provide pain control with opiates via a step-up process. 2. Consult orthopedics for possible surgical intervention. 3. PT/OT consult after orthopedic clearance. 4. Patient will likely need inpatient rehab upon discharge. Qualifiers: Encounter type: initial encounter Humerus Location: proximal Fracture type: closed Fracture morphology: unspecified fracture morphology Laterality : left Qualified Code(s): S42.202A - Unspecified fracture of upper end of left humerus, initial encounter for closed fracture (2) IDDM (insulin dependent diabetes mellitus) Current visit: Yes Status: Chronic 1. Will place on SSI. 2. Add basal insulin once home medications are confirmed. 3. Monitor glucose and adjust accordingly. (3) Pneumonia Current visit: Yes Status: Suspected 1. Will order a dedicated CXR to evaluate. 2. Will culture blood and start Levaquin. 3. Supportive measures as necessary. Qualifiers: Pneumonia type: due to unspecified organism Laterality: left Lung location: lower lobe of lung Qualified Code(s): J18.1 - Lobar pneumonia, unspecified organism (4) DVT prophylaxis Current visit: No Status: Acute 1. Heparin SQ. Internal Medicine - H&P: HPI Chief complaint: s/p fall; humerus fracture Admitted From: Emergency Dept Plans for Post Hospital Care: Transfer [facility] History of present illness: Ms. Em is a 76 year old female who presents to the ER tonight after she fell at home and sustained a fracture to her humerus. Patient is primarily chair and bedbound. She does not ambulate due to severe arthritis of the knees and morbid obesity. She was transferring herself from her recliner to her bedside commode when she slipped and fell and sustained a fracture to her left humerus. EMS was called and patient was brought to the ER. Imaging studies confirmed humeral fracture. Xray is also concerning for pneumonia based on the shoulder x -ray. Patient has had some cough and congestion but no fevers. Patient was admitted to hospitalist service for further workup and care. Upon my assessment of the patient, she is complaining of significant pain to her left arm. She confirms that she has had a chronic cough with minimal sputum production. She suffers from COPD and is oxygen dependent. She denies any fevers. She denies any syncope. 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 Because she is chair and bedbound and minimally mobile, she will most likely need inpatient rehabilitation for discharge until her left humerus heals. I will defer any further orthopedic advice to with surgery and will consult PT and OT after orthopedic clearance. Past Med Surg Social Fam HX - Past Medical History Attestation: Yes The following information was validated with the patient. Source: patient, old records reviewed Medical history: arthritis, cancer, COPD, coronary artery disease, diabetes, hyperlipidemia, hypertension, myocardial infarction, renal disease Psychiatric history: anxiety, depression - Past Surgical History Surgical History: appendectomy, cancer surgery, cataract, cholecystectomy, hysterectomy, orthopedic, other, JUAN/BSO - Social History Smoking Status: Former smoker Smokeless Tobacco Status: No Alcohol use: none Drug use: none Activity Level: Wheelchair bound, Bed bound, Mostly sedentary Recent Out of Country Travel Within the Last 8 Weeks: No - Family History Father Living Status: Age at : 49 Cause of : heart disease Hx Family Cardiac Disorders: Yes Mother Adopted: No Family Member Ethnicity: Non- Living Status: Cause of : heart disease Hx Family Cardiac Disorders: Yes Hx Family Respiratory Disorders: No Hx Family Cancer: No Hx Family GI Disorders: No Hx Family Endocrine Disorder: No Hx Family Neuromuscular Disorders: No Hx Family Neurologic Disorders: No Hx Family HEENT Disorders: Yes Hx Family Autoimmune Disorders: No Internal Medicine - H&P: Meds Aspirin Enteric Coated [Aspirin EC] 81 mg PO DAILY #30 tablet. 12/20/14 [Rx] Insulin DETEMIR [Levemir] 80 unit SQ BID 01/23/15 [History] Levothyroxine [Synthroid] 175 mcg PO DAILY 01/23/15 [History] Atorvastatin Calcium [Lipitor] 80 mg PO DAILY 03/28/15 [History] Lisinopril [Zestril] 20 mg PO DAILY 03/28/15 [History] Metoprolol XL (24 HR) Succ [Toprol Xl] 25 mg PO DAILY 03/28/15 [History] Duloxetine HCl 60 mg PO DAILY 04/26/16 [History] Insulin LISPRO [Humalog] 30 - 40 unit SQ TIDWM MDD PER SLIDING SCALE 04/26/16 [ History] Albuterol Sulfate [Albuterol Inhaler] 2 puff IH Q4HR PRN #4 hfa.aer.ad 04/28/16 [Rx] Ipratropium/Albuterol Neb [Duoneb] 3 ml IH Q6H #2 vial.neb 04/28/16 [Rx] predniSONE [PredniSONE] 40 mg PO DAILY #3 tablet 04/28/16 [Rx] Gabapentin [Neurontin] 600 mg PO TID 09/23/16 [History] Multivitamin [One Daily Essential] 1 tab PO DAILY 09/23/16 [History] Oxygen 4 l NS CONT 09/23/16 [History] Tolterodine LA (24 HR) [Detrol LA] 4 mg PO DAILY 09/23/16 [History] Walker [Ultra-Light Rollator] 1 each MC DAILY #1 each 09/24/16 [Rx] predniSONE [PredniSONE] 10 mg PO DAILY #12 tablet 09/25/16 [Rx] 3 Allergy/AdvReac Type Severity Reaction Status Date / Time hydrocodone [From Vicodin] AdvReac Nausea Verified 09/22/16 17:03 metformin [From Glucophage] AdvReac Diarrhea Verified 01/23/15 09:38 - Constitutional Constitutional: fever(s) (subjective), no chills, no night sweats - EENT Eyes: no blurry vision, no change in vision Ears: no ear pain, no tinnitus Nose, mouth and throat: no nasal congestion, no sinus pressure, no sore throat - Cardiovascular Cardiovascular ROS IM: no chest pain, no diaphoresis, no lightheadedness, no palpitations, no syncope - Respiratory Respiratory: cough, dyspnea, chest congestion, excessive phlegm production, change in phlegm color, no hemoptysis - Gastrointestinal Gastrointestinal: no abdominal pain, no diarrhea, no hematemesis, no hematochezia, no melena, no nausea, no vomiting - Genitourinary Genitourinary: no dysuria, no flank pain, no hematuria - Musculoskeletal Musculoskeletal ROS IM: arthralgias, back pain, limited range of motion - Integumentary Integumentary IM: no rash, no jaundice - Neurological Neurological ROS: no disequilibrium, no dizziness, no focal weakness, no frequent falls, no headache(s) - Psychiatric Psychiatric: no anxiety, no depression - Endocrine Endocrine IM: no polydipsia, no polyuria - Hematologic/Lymphatic Hematologic/Lymphatic: easy bruising, no lymphadenopathy - Allergic/Immunologic Allergic/Immunologic: no wheezing, no GI upset with certain foods - Constitutional Vitals: Temp Pulse Resp BP Pulse Ox 98.1 F 112 18 132/78 98 04/22/17 23:14 04/23/17 03:10 04/23/17 03:10 04/23/17 03:10 04/23/17 03:10 General appearance: Present: cooperative, mild distress (due to pain ), A&O X 3 , pleasant Exam: morbidly obese - Head Head exam: Present: atraumatic, normal inspection - Expanded Head Exam Head exam expanded: Absent: abrasion, contusion, general tenderness - Eye Eye exam: Present: EOMI, PERRL. Absent: scleral icterus Pupils: Present: normal accommodation - ENT ENT exam: Present: mucous membranes dry, normal exam, normal oropharynx - Neck Neck exam general surgery: Present: full ROM, supple. Absent: lymphadenopathy, tenderness - Respiratory Respiratory exam: Present: decreased breath sounds, rhonchi, wheezes. Absent: accessory muscle use, chest wall tenderness, rales, respiratory distress - Cardiovascular Cardiovascular exam: Present: distant heart sounds, RRR, +S1, +S2. Absent: diastolic murmur, systolic murmur Additional comments: frequent ectopy noted on auscultation - GI/Abdominal GI/Abdominal exam: Present: normal bowel sounds, soft. Absent: hepatomegaly, mass, splenomegaly, tenderness - Extremities Exam Extremities exam: Present: normal capillary refill, tenderness (left arm/humerus ), warm. Absent: calf tenderness, joint swelling, radial pulses palpable and symmetrical - Neurological Exam Neurological exam: Present: alert, CN II-XII intact, oriented X3, no focal deficits - Psychiatric Psychiatric exam: Present: normal affect, normal mood - Skin Skin exam: Present: abrasion (right arm/elbow; both knees), dry, warm. Absent: rash Internal Med - H&P Results - Labs CBC & Chem 7: 04/23/17 01:01 04/23/17 01:01 - Diagnostic Studies Other Images Status: image reviewed by me (Left shoulder xray -- humerus fracture; suspect left basilar infiltrate)
[2017-04-23] MEDS: Levofloxacin 500 MG/100 ML 500 MG/100 ML BAG IVPB SCH (05:07)
[2017-04-23] MEDS: *HR* Heparin 5,000 UNIT/ML VIAL SQ SCH ×3 (05:07→21:41)
[2017-04-23] MEDS ORDERED: Ipratropium/Albuterol Neb 3 ML IH SCH (05:30)
[2017-04-23] MEDS: Multivit/Ca/Min/Fe/FA 1 TAB TABLET PO SCH (08:39)
[2017-04-23] MEDS: Gabapentin 300 MG CAPSULE PO SCH ×3 (08:39→22:33)
[2017-04-23] MEDS: traMADol 50 MG TABLET PO PRN ×2 (08:39→15:03)
[2017-04-23] MEDS: Insulin DETEMIR 100 UNIT/ML X5UNITS SQ SCH ×2 (08:40→21:41)
[2017-04-23] MEDS: Aspirin Enteric Coated 81 MG Tablet PO SCH (08:40)
[2017-04-23] MEDS: Metoprolol XL (24 HR) Succ 25 MG TAB.ER.24H PO SCH (08:40)
[2017-04-23] MEDS: Insulin LISPRO 300 UNITS/3 ML VIAL SQ SCH ×3 (08:41→17:42)
[2017-04-23] MEDS ORDERED: INSULIN DETEMIR 80 UNIT SQ SCH (09:00)
--- NOTE | 2017-04-23 10:06 | Internal Med Progress Note ---
<Puma Mcneill - Last Filed: 04/23/17 13:59> Date of Encounter: 04/23/17 Time of Encounter: 10:01 - Assessment and plan (1) Humeral fracture Current Visit: Yes Status: Acute Assessment and plan: 2/2 fall on 04/22/17. humerus XR / - impaction proximal left humeral fracture. today pain is not well controlled. Will need rehab on D/C - increased frequency of roxicodone from Q6h -> Q4h - Consulted Ortho - PT/OT consulted - close monitoring of respiratory function 2/2 to habitus, recent fracture, and possible resp infection. Pt has been tachy since admission, high risk for embolism. Qualifiers: Encounter type: initial encounter Humerus Location: proximal Fracture type: closed Fracture morphology: unspecified fracture morphology Laterality : left Qualified Code(s): S42.202A - Unspecified fracture of upper end of left humerus, initial encounter for closed fracture (2) Obesity hypoventilation syndrome Current Visit: Yes Status: Acute Assessment and plan: On chart review, patient has had decreased respiration since 01/2017 w/ hx of COPD. Patient went through full course of Azithromycin treatment in january. She then did not improve, and was placed on Doxycycline by Dr. Alexander. Patient symptoms have not improved. Dyspnea most likely due to Obesity vs pain induced dyspnea vs less likely PNA/viral. (3) COPD (chronic obstructive pulmonary disease) Current Visit: No Status: Chronic Assessment and plan: Stable for now, continue home inhalers, and O2 support Qualifiers: COPD type: emphysema Emphysema type: centrilobular Qualified Code(s): J43.2 - Centrilobular emphysema (4) DVT prophylaxis Current Visit: No Status: Acute Assessment and plan: heparin SQ (5) HTN (hypertension) Current Visit: Yes Status: Chronic Assessment and plan: currently stable. continue home meds. Qualifiers: Hypertension type: essential hypertension Qualified Code(s): I10 - Essential (primary) hypertension (6) IDDM (insulin dependent diabetes mellitus) Current Visit: Yes Status: Chronic Assessment and plan: SSI low. continue to monitor BG. (7) MALLORY (obstructive sleep apnea) Current Visit: Yes Status: Chronic Assessment and plan: see above (8) Fall Current Visit: Yes Status: Acute Assessment and plan: patient was getting up from her toilet chair to get into her recliner. Patient slipped on her carpet, that was wet and fell on her side. see above. Qualifiers: Encounter type: initial encounter Qualified Code(s): W19.XXXA - Unspecified fall, initial encounter (9) Leukocytosis Current Visit: Yes Status: Acute Assessment and plan: most likey from fracture vs injected steroids as a possible contibutor vs less likely from PNA. Qualifiers: Qualified Code(s): D72.829 - Elevated white blood cell count, unspecified (10) Shortness of breath Current Visit: Yes Status: Acute Assessment and plan: Most likely due to morbid Obesity vs possibly fluid overload vs vs COPD vs less likely PNA (continuous sx's that has recently treated w/ abx) vs concerns for emboli. - continue levaquin for now. (11) Morbid obesity Current Visit: Yes Status: Chronic Assessment and plan: recommend follow up outpatient - Subjective Interval history: Ms Em is a 76 yo F brought by squad to [place] ED after slipping from her toilet chair to her regular recliner resulting in a fall. Found to have an impaction fracture on her left proximal humerus. Today patient states that she remains in a lot of pain, specifically in her left shoulder where she has the fracture. Patient also reports SOB/cough at rest. Patient denies PND, orthopnea, CP, or additional swelling. - Constitutional Vitals: Temp Pulse Resp BP Pulse Ox 98.0 F 120 17 124/70 96 04/23/17 07:15 04/23/17 07:15 04/23/17 07:15 04/23/17 07:15 04/23/17 07:15 General appearance: Present: cooperative, mild distress (due to pain ), A&O X 3 , morbidly obese, answers questions appropriately - Respiratory Respiratory exam: Present: prolonged expiratory phase, wheezes. Absent: accessory muscle use, chest wall tenderness, decreased breath sounds, respiratory distress, rhonchi - Cardiovascular Cardiovascular exam: Present: tachycardia. Absent: diastolic murmur, gallop, rubs, systolic murmur Additional comments: due to habitus, unable to hear heart sounds. - GI/Abdominal GI/Abdominal exam: Present: normal bowel sounds, soft, no peritoneal signs. Absent: distended, tenderness - Extremities Exam Extremities exam: Present: warm, radial pulses palpable and symmetrical. Absent : calf tenderness, cyanotic, pedal edema - Psychiatric Psychiatric exam: Present: normal affect, normal mood Internal Medicine: Result - Labs CBC & Chem 7: 04/23/17 01:01 04/23/17 01:01 - ABG Interpretation ABG results: PT/INR, D-dimer PT 11.5 Seconds (9.4-12.1) 04/23/17 01:01 - Impressions Impressions Chest X-Ray 04/23/17 04:39 IMPRESSION: 1. Technically limited by poor inspiratory effort. 2. Mild vascular prominence, likely reflecting sequelae of low lung volumes rather than pulmonary edema. 3. Cardiomegaly, also likely related to low lung volumes and portable technique. 4. No focal consolidation. D/ / 04/23/2017 08:19:46 Kimberly Noble MD / kandis Interpreting Provider: Kimberly Noble MD Consult Discharge Plan - Plan Referrals: Corinne Mullins DIE CUT OPERATOR [Primary Care Provider] - <Abbe Muniz P - Last Filed: 04/23/17 16:54> Date of Encounter: 04/23/17 - Constitutional Vitals: Temp Pulse Resp BP Pulse Ox 98.1 F 86 18 139/81 92 04/23/17 15:21 04/23/17 15:21 04/23/17 16:06 04/23/17 15:21 04/23/17 16:06 Internal Medicine: Result - Labs CBC & Chem 7: 04/23/17 01:01 04/23/17 01:01 - ABG Interpretation ABG results: PT/INR, D-dimer PT 11.5 Seconds (9.4-12.1) 04/23/17 01:01 - Impressions Impressions Chest X-Ray 04/23/17 04:39 IMPRESSION: 1. Technically limited by poor inspiratory effort. 2. Mild vascular prominence, likely reflecting sequelae of low lung volumes rather than pulmonary edema. 3. Cardiomegaly, also likely related to low lung volumes and portable technique. 4. No focal consolidation. D/ / 04/23/2017 08:19:46 Kimberly Noble MD / kandis Interpreting Provider: Kimberly Noble MD - Attending Attestation I examined this patient and my medical decision-making was reviewed with the Resident Physician. I agree with the documented findings, disposition and treatment plan as described except to the extent set forth below. 76/female Admitted with humerus fracture. Noted from orthopedic that the plan is nonoperative concentrative management. We will follow the recommendations from orthopedics
[2017-04-23] MEDS: *HR* OxyCODONE Immed Rel 5 MG TABLET PO PRN ×3 (11:19→21:42)
[2017-04-23] MEDS: Ipratropium/Albuterol Neb 3 ML IH SCH ×3 (11:27→22:28)
[2017-04-23] MEDS: Acetaminophen 325 MG TABLET PO PRN ×2 (12:16→18:37)
--- NOTE | 2017-04-23 16:47 | Orthopedic Consult Note ---
Date of Encounter: 04/23/17 Time of Encounter: 16:42 Assessment and Plan (1) Humeral fracture Current Visit: Yes Status: Acute The diagnosis and treatment plan were discussed with Deanna. We will treat this fracture non-operatively. Sling for the upper extremity. May come out for hand, wrist and elbow motion. F/u in 3 weeks in the office. Qualifiers: Encounter type: initial encounter Humerus Location: proximal Fracture type: closed Fracture morphology: unspecified fracture morphology Laterality : left Qualified Code(s): S42.202A - Unspecified fracture of upper end of left humerus, initial encounter for closed fracture History of Present Illness Chief complaint: L shoulder pain HPI: Ms. Em is a 76 year old female fell onto left shoulder yesterday. Had pain in the shoulder and was diagnosed with a left proximal humerus fracture. Admitted for pain control. Denies N/T in the upper extremity. Denies other injuries. Past Med Surg Social Fam HX - Past Medical History Medical history: arthritis, cancer, COPD, coronary artery disease, diabetes, hyperlipidemia, hypertension, myocardial infarction, renal disease Psychiatric history: anxiety, depression - Past Surgical History Surgical History: appendectomy, cancer surgery, cataract, cholecystectomy, hysterectomy, orthopedic, other, JUAN/BSO - Social History Smoking Status: Former smoker Smokeless Tobacco Status: No Alcohol use: none Drug use: none - Family History Father Living Status: Age at : 49 Cause of : heart disease Hx Family Cardiac Disorders: Yes Mother Adopted: No Family Member Ethnicity: Non- Living Status: Cause of : heart disease Hx Family Cardiac Disorders: Yes Hx Family Respiratory Disorders: No Hx Family Cancer: No Hx Family GI Disorders: No Hx Family Endocrine Disorder: No Hx Family Neuromuscular Disorders: No Hx Family Neurologic Disorders: No Hx Family HEENT Disorders: Yes Hx Family Autoimmune Disorders: No Medications and Allergies Aspirin Enteric Coated [Aspirin EC] 81 mg PO DAILY #30 tablet. 12/20/14 [Rx] Insulin DETEMIR [Levemir] 80 unit SQ BID 01/23/15 [History] Levothyroxine [Synthroid] 175 mcg PO DAILY 01/23/15 [History] Atorvastatin Calcium [Lipitor] 80 mg PO DAILY 03/28/15 [History] Lisinopril [Zestril] 20 mg PO DAILY 03/28/15 [History] Metoprolol XL (24 HR) Succ [Toprol Xl] 25 mg PO DAILY 03/28/15 [History] Duloxetine HCl 60 mg PO DAILY 04/26/16 [History] Insulin LISPRO [Humalog] 30 - 40 unit SQ TIDWM MDD PER SLIDING SCALE 04/26/16 [ History] Albuterol Sulfate [Albuterol Inhaler] 2 puff IH Q4HR PRN #4 [email or web address] 04/28/16 [Rx] Gabapentin [Neurontin] 600 mg PO TID 09/23/16 [History] Multivitamin [One Daily Essential] 1 tab PO DAILY 09/23/16 [History] Oxygen 3 l NS CONT 09/23/16 [History] Furosemide [Lasix] 20 mg PO DAILY 04/23/17 [History] Mirabegron [Myrbetriq] 25 mg PO DAILY 04/23/17 [History] 3 Allergy/AdvReac Type Severity Reaction Status Date / Time hydrocodone [From Vicodin] AdvReac Nausea Verified 09/22/16 17:03 metformin [From Glucophage] AdvReac Diarrhea Verified 01/23/15 09:38 All Systems Reviewed: A 10-system review of systems was performed and is negative for pertinent findings except as documented above in the HPI. Physical Exam - Constitutional Vitals: Temp Pulse Resp BP Pulse Ox 98.1 F 86 18 139/81 92 04/23/17 15:21 04/23/17 15:21 04/23/17 16:06 04/23/17 15:21 04/23/17 16:06 General appearance IM: A&O X 3, morbidly obese Exam: Consult Exam: Constitutional -Vitals reviewed -The patient is well developed and well nourished. Psychiatric -The patient is fully alert and oriented x 3. Respiratory: -Respiratory effort normal Abdomen: -Soft abdomen -Non tender -Non distended: Left upper extremity: -No deformities. The overlying skin is intact. -ROM deferred due to known fracture -Able to make an "OK" sign, cross the index and long fingers, and extend the thumb. -Sensation grossly intact to light touch throughout the median, radial, and ulnar distributions. -Radial pulse is present; Fingers have good capillary refill. Right upper extremity: -No deformities. The overlying skin is intact. No obvious signs of acute trauma. -No tenderness to palpation throughout. -No significant pain with passive motion of the shoulder, elbow, wrist, and fingers within the limits of the bed. -Able to make an "OK" sign, cross the index and long fingers, and extend the thumb. -Sensation grossly intact to light touch throughout the median, radial, and ulnar distributions. -Radial pulse is present; Fingers have good capillary refill. Left lower extremity: -No deformities. The overlying skin is intact. No obvious signs of acute trauma. -No tenderness to palpation throughout. -No pain with passive motion of the hip, knee, ankle, and toes within the limits of the bed. -No pain with axial loading of the thigh. -Able to dorsiflex and plantarflex the ankle and toes. -Sensation is grossly intact to light touch throughout the sural, saphenous, superficial peroneal, and deep peroneal distributions. -Toes have good capillary refill. Right lower extremity: -No deformities. The overlying skin is intact. No obvious signs of acute trauma. -No tenderness to palpation throughout. -No pain with passive motion of the hip, knee, ankle, and toes within the limits of the bed. -No pain with axial loading of the thigh. -Able to dorsiflex and plantarflex the ankle and toes. -Sensation is grossly intact to light touch throughout the sural, saphenous, superficial peroneal, and deep peroneal distributions. -Toes have good capillary refill. Results - Labs Result Diagrams: 04/23/17 01:01 04/23/17 01:01 Labs: Abnormal lab results WBC 15.7 K/mcL (4.3-11.1) H 04/23/17 01:01 Hct 46.9 % (35.3-44.9) H 04/23/17 01:01 MCV 100.9 fL (83.0-100.0) H 04/23/17 01:01 MCHC 31.1 g/dL (31.6-35.5) L 04/23/17 01:01 Neutrophils # 13.2 K/mcL (1.6-8.9) H 04/23/17 01:01 Carbon Dioxide 32 mEq/L (23-29) H 04/23/17 01:01 Glucose 250 mg/dL (70-105) H 04/23/17 01:01 Calculated Osmolality 301 (280-300) H 04/23/17 01:01 All other labs normal. - Diagnostic results Shoulder x-ray: report reviewed, image reviewed (Displaced left proximal humerus surgical neck fracture) Consult Discharge Plan - Plan Referrals: Corinne Mullins, MAAME [Primary Care Provider] -
[2017-04-23] MEDS ORDERED: Insulin LISPRO 300 UNITS/3 ML VIAL SQ SCH (16:55)
[2017-04-24] MEDS: *HR* OxyCODONE Immed Rel 5 MG TABLET PO PRN ×4 (03:19→20:44)
[2017-04-24] MEDS: Ipratropium/Albuterol Neb 3 ML IH SCH ×4 (04:24→22:25)
[2017-04-24] MEDS: *HR* Heparin 5,000 UNIT/ML VIAL SQ SCH ×3 (05:06→22:51)
[2017-04-24] MEDS: Levofloxacin 500 MG/100 ML 500 MG/100 ML BAG IVPB SCH (05:06)
[2017-04-24 06:16] LABS: Basophils % 0.3 %; Hematocrit 41.6 % (35.3-44.9); Hemoglobin 13.4 g/dL (11.5-15.4); Immature Granulocytes % 1.4 % (0-4); Lymphocytes # 1.3 K/mcL (0.6-4.6); Lymphocytes % 7.8 %; Mean Corpuscular HGB Conc 32.2 g/dL (31.6-35.5); Mean Corpuscular Hemoglobin 31.4 pg (28.0-33.3); Mean Corpuscular Volume 97.4 fL (83.0-100.0); Mean Platelet Volume 9.4 fL (9.4-12.4); Monocytes # 1.1 K/mcL (0.0-1.3); Monocytes % 6.6 %; Neutrophils # 13.4 K/mcL (1.6-8.9); Platelet Count 249 K/mcL (140-400); Red Blood Count 4.27 M/mcL (3.82-4.97); Red Cell Distribution Width 14.1 % (11.5-14.5); Segmented Neutrophils % 83.9 %
[2017-04-24 06:33] LABS: Alanine Aminotransferase 24 Units/L (7-52); Albumin 3.5 g/dL (3.5-5.7); Albumin/Globulin Ratio 1.3 (1.1-2.2); Alkaline Phosphatase 86 Units/L (34-104); Aspartate Amino Transferase 17 Units/L (13-39); BUN/Creatinine Ratio 27 (6-26); Bilirubin,Total 0.5 mg/dL (0.3-1.0); Blood Urea Nitrogen 21 mg/dL (8-23); Calcium 8.7 mg/dL (8.6-10.3); Carbon Dioxide 33 mEq/L (23-29); Chloride 104 mEq/L (98-107); Globulin 2.6 g/dL (2.4-3.5); Glucose 331 mg/dL (70-105); Magnesium 2.2 mg/dL (1.6-2.6); Osmolality,Calculated 308 (280-300); Sodium 141 mEq/L (136-145); Total Protein 6.1 g/dL (6.4-8.9); eGFR For African Americans > 60 (> 60); eGFR For Non-African Americans > 60 (> 60)
--- NOTE | 2017-04-24 09:19 | Discharge Summary ---
Date of Encounter: 04/24/17 Time of Encounter: 09:19 - Discharge Diagnosis (1) Humeral fracture Priority: Primary Status: Acute Qualifiers: Encounter type: initial encounter Humerus Location: proximal Fracture type: closed Fracture morphology: unspecified fracture morphology Laterality : left Qualified Code(s): S42.202A - Unspecified fracture of upper end of left humerus, initial encounter for closed fracture (2) Obesity hypoventilation syndrome Priority: Secondary Status: Acute (3) COPD (chronic obstructive pulmonary disease) Priority: Secondary Status: Chronic Qualifiers: COPD type: emphysema Emphysema type: centrilobular Qualified Code(s): J43.2 - Centrilobular emphysema (4) DVT prophylaxis Priority: Secondary Status: Acute (5) HTN (hypertension) Priority: Secondary Status: Chronic Qualifiers: Hypertension type: essential hypertension Qualified Code(s): I10 - Essential (primary) hypertension (6) IDDM (insulin dependent diabetes mellitus) Priority: Secondary Status: Chronic (7) MALLORY (obstructive sleep apnea) Priority: Secondary Status: Chronic (8) Fall Priority: Secondary Status: Acute Qualifiers: Encounter type: initial encounter Qualified Code(s): W19.XXXA - Unspecified fall, initial encounter (9) Leukocytosis Priority: Secondary Status: Acute Qualifiers: Qualified Code(s): D72.829 - Elevated white blood cell count, unspecified (10) Shortness of breath Priority: Secondary Status: Acute (11) Morbid obesity Status: Chronic - Discharge Medications Prescriptions: OxyCODONE/APAP 10/325 [Percocet 10/325 MG] 1 each PO Q6HR PRN 7 Days #28 tablet PRN Reason: Pain Atorvastatin [Lipitor] 40 mg PO DAILY 30 Days #30 tablet Home Medications: Aspirin Enteric Coated [Aspirin EC] 81 mg PO DAILY #30 tablet. 12/20/14 [Rx] Insulin DETEMIR [Levemir] 80 unit SQ BID 01/23/15 [History] Levothyroxine [Synthroid] 175 mcg PO DAILY 01/23/15 [History] Lisinopril [Zestril] 20 mg PO DAILY 03/28/15 [History] Metoprolol XL (24 HR) Succ [Toprol Xl] 25 mg PO DAILY 03/28/15 [History] Duloxetine HCl 60 mg PO DAILY 04/26/16 [History] Insulin LISPRO [Humalog] 30 - 40 unit SQ TIDWM MDD PER SLIDING SCALE 04/26/16 [ History] Albuterol Sulfate [Albuterol Inhaler] 2 puff IH Q4HR PRN #4 hfa.aer.ad 04/28/16 [Rx] Gabapentin [Neurontin] 600 mg PO TID 09/23/16 [History] Multivitamin [One Daily Essential] 1 tab PO DAILY 09/23/16 [History] Oxygen 3 l NS CONT 09/23/16 [History] Furosemide [Lasix] 20 mg PO DAILY 04/23/17 [History] Mirabegron [Myrbetriq] 25 mg PO DAILY 04/23/17 [History] Atorvastatin [Lipitor] 40 mg PO DAILY 30 Days #30 tablet 04/24/17 [Rx] Ipratropium/Albuterol Neb [Duoneb] 3 ml IH [id number] inhsol 04/24/17 [Rx] OxyCODONE/APAP 10/325 [Percocet 10/325 MG] 1 each PO Q6HR PRN 7 Days #28 tablet 04/24/17 [Rx] Allergies/Adverse Reactions: 3 Allergy/AdvReac Type Severity Reaction Status Date / Time hydrocodone [From Vicodin] AdvReac Nausea Verified 09/22/16 17:03 metformin [From Glucophage] AdvReac Diarrhea Verified 01/23/15 09:38 Procedures/tests Complete & Pending: Procedures Performed prior 72 hours Category Date Time Status ECG 12 lead ECG [ECG] AM 0600 Y 04/23/17 06:00 Ordered Date of admission: 04/23/17 03:07 Primary care physician: Corinne Mullins, Consults: 04/23/17 04:36 Consult to Nutrition [CONS] Routine Comment: Consulting Provider: NUTRITION Reason for Dietary Consult: MST Score Consult to Piece Dye Worker [CONS] Routine Reason for SW Consult: Lt humerus fracture, uses home health, possible need for rehab placement 04/23/17 04:42 Consult to Physician [CONS] Routine Consulting Provider: [place] Reason for Consult: humerus fracture Call Completed: No 04/23/17 09:33 Consult to Orthopedic Surgery [CONS] Routine Consulting Provider: Orthoped[facility] Reason for Consult: L proximal humerus fracture Call Completed: Yes - Patient Status Disposition: Home, Self-Care Condition: Good Functional capacity at discharge: independent ambulation Overall status at discharge: patient is progressing back to baseline - Discharge Instructions Follow Up With: Corinne Mullins CNP [Primary Care Provider] - Manav Jackson MD [Non-Partnered Physician] - - Diet and Activity Activity: as per physical therapy Hospital course: Ms. Em is a 76 year old female w/ pmh of arthritis, CAD, COPD, T2DM, HLD, HTN , NV, renal disease, and morbid obesity was brought by squad to [place] ED due to a fall experienced at home. Patient was moving from toilet chair to her reclining chair, when urine dripped on her floor and she slipped and fell. Squad brought patient to [place] ED. X-ray of chest, shoulder, humerus, and elbow were taken in the ED. XR of humerus discovered a Left proximal impaction fracture of humerus. Orthopedics were consulted, and recommended conservative treatment. Patient to have follow up with Orthopedic Surgery in 3 weeks. Patient discharged with 7 days of Percocet 10 q6hrs #28, to follow up with PCP for additional pain management until orthopedic appointment. CXR suggested patient possibly has PNA. Patient was recently treated with azithromycin full course with no success, and then doxycycline. Patient's SOB was most likely multifactorial with Obesity hypoventilation syndrome, COPD, pain exacerbated, and less likely due to acute PNA. Patient discharged with 5 days (7 days total) of levaquin. Patient WBC 16, most likely due to recent trauma. Afebrile during hospitalization. Patient opt'ed to not use bipap at night, in the mornings patient was hypertensive. Recommended to patient to be more compliant with bipap. BG increased to 262, and patient's SSI was increased to medium dosing. This increase in BG is most likely in the setting of fracture pain. Patient recommended to consider Bariatric surgery or aggressive weight loss. Time spent discussing smoking cessation with patient: more than 10 minutes - Time Spent with Patient Total time spent providing and/or coordinating discharge services: Greater than 30 minutes - Constitutional Vitals: Temp Pulse Resp BP Pulse Ox 97.4 F L 108 18 171/98 92 04/24/17 07:34 04/24/17 07:34 04/24/17 07:34 04/24/17 07:34 04/24/17 07:34 General appearance: Present: cooperative, mild distress (due to pain ), A&O X 3 , morbidly obese, answers questions appropriately - Respiratory Respiratory exam: Present: decreased breath sounds, prolonged expiratory phase, wheezes. Absent: respiratory distress Additional comments: limited by habitus - Cardiovascular Cardiovascular exam: Present: RRR. Absent: irregular rhythm, JVD, tachycardia Additional comments: limited by habitus - Extremities Exam Extremities exam: Present: warm, radial pulses palpable and symmetrical. Absent : calf tenderness, cyanotic, pedal edema Additional comments: superficial clean and dry scab on right medial anterior patellar. - Psychiatric Psychiatric exam: Present: normal affect, normal mood
--- NOTE | 2017-04-24 10:13 | Internal Med Progress Note ---
<Puma Mcneill - Last Filed: 04/24/17 10:10> Date of Encounter: 04/24/17 Time of Encounter: 10:13 - Assessment and plan (1) Humeral fracture Current Visit: Yes Status: Acute Assessment and plan: 2/2 fall on 04/22/17. humerus XR 04/22 - impaction proximal left humeral fracture. Orthopedics recommended conservative treatment. today pain is better controlled today. Will need rehab on D/C. - continue Rx pain management - [facility], most likely on Wednesday - appreciate ortho's input - PT/OT consulted - close monitoring of respiratory function 2/2 to habitus, recent fracture, and possible resp infection. Pt has been tachy since admission, high risk for embolism. Qualifiers: Encounter type: initial encounter Humerus Location: proximal Fracture type: closed Fracture morphology: unspecified fracture morphology Laterality : left Qualified Code(s): S42.202A - Unspecified fracture of upper end of left humerus, initial encounter for closed fracture (2) Obesity hypoventilation syndrome Current Visit: Yes Status: Acute Assessment and plan: On chart review, patient has had decreased respiration since 01/2017 w/ hx of COPD. Patient went through full course of Azithromycin treatment in january. She then did not improve, and was placed on Doxycycline by Dr. Alexander. Patient symptoms have not improved. Dyspnea most likely due to Obesity vs pain induced dyspnea vs less likely PNA/viral. (3) COPD (chronic obstructive pulmonary disease) Current Visit: Yes Status: Chronic Assessment and plan: Stable for now, continue home inhalers, and O2 support Qualifiers: COPD type: emphysema Emphysema type: centrilobular Qualified Code(s): J43.2 - Centrilobular emphysema (4) DVT prophylaxis Current Visit: No Status: Acute Assessment and plan: heparin SQ (5) HTN (hypertension) Current Visit: Yes Status: Chronic Assessment and plan: currently stable. continue home meds. recommended Bipap compliancy Qualifiers: Hypertension type: essential hypertension Qualified Code(s): I10 - Essential (primary) hypertension (6) IDDM (insulin dependent diabetes mellitus) Current Visit: Yes Status: Chronic Assessment and plan: SSI low. continue to monitor BG. (7) MALLORY (obstructive sleep apnea) Current Visit: Yes Status: Chronic Assessment and plan: see above (8) Fall Current Visit: Yes Status: Acute Assessment and plan: patient was getting up from her toilet chair to get into her recliner. Patient slipped on her carpet, that was wet and fell on her side. see above. Qualifiers: Encounter type: initial encounter Qualified Code(s): W19.XXXA - Unspecified fall, initial encounter (9) Leukocytosis Current Visit: Yes Status: Acute Assessment and plan: most likey from fracture vs injected steroids as a possible contibutor vs less likely from PNA. Qualifiers: Qualified Code(s): D72.829 - Elevated white blood cell count, unspecified (10) Shortness of breath Current Visit: Yes Status: Acute Assessment and plan: Most likely due to morbid Obesity vs possibly fluid overload vs vs COPD vs less likely PNA (continuous sx's that has recently treated w/ abx) vs concerns for emboli. - continue levaquin for now. (11) Morbid obesity Current Visit: Yes Status: Chronic Assessment and plan: recommend follow up outpatient - Subjective Interval history: Ms Em is a 76 yo F brought by squad to [facility] ED after slipping from her toilet chair to her regular recliner resulting in a fall. Found to have an impaction fracture on her left proximal humerus. Patient declined to use bipap, and was hypertensive this AM. Today patient states that she remains in pain. Patient denies PND, orthopnea, CP, or additional swelling. - Constitutional Vitals: Temp Pulse Resp BP Pulse Ox 97.4 F L 108 18 171/98 92 04/24/17 07:34 04/24/17 07:34 04/24/17 07:34 04/24/17 07:34 04/24/17 07:34 General appearance: Present: cooperative, mild distress (due to pain ), A&O X 3 , morbidly obese, answers questions appropriately - Respiratory Respiratory exam: Present: prolonged expiratory phase, wheezes. Absent: accessory muscle use, rales, rhonchi Additional comments: limited due to habitus - Cardiovascular Cardiovascular exam: Present: RRR. Absent: irregular rhythm, JVD Additional comments: limited due to habitus - Extremities Exam Extremities exam: Present: warm, radial pulses palpable and symmetrical. Absent : calf tenderness, cyanotic, pedal edema - Psychiatric Psychiatric exam: Present: normal affect, normal mood Internal Medicine: Result - Labs CBC & Chem 7: 04/24/17 05:49 04/24/17 05:49 Labs: Short CBC 04/24/17 Range/Units 05:49 WBC 16.0 H (4.3-11.1) K/mcL Hgb 13.4 (11.5-15.4) g/dL Hct 41.6 (35.3-44.9) % Plt Count 249 (140-400) K/mcL Neutrophils # 13.4 H (1.6-8.9) K/mcL BMP 04/24/17 05:49 Sodium 141 Potassium 4.0 Chloride 104 Carbon Dioxide 33 H BUN 21 Creatinine 0.79 Glucose 331 H Calcium 8.7 Liver Function 04/24/17 Range/Units 05:49 Total Bilirubin 0.5 (0.3-1.0) mg/dL AST 17 (13-39) Units/L ALT 24 (7-52) Units/L Alkaline Phosphatase 86 (34-104) Units/L Albumin 3.5 (3.5-5.7) g/dL - ABG Interpretation ABG results: PT/INR, D-dimer PT 11.5 Seconds (9.4-12.1) 04/23/17 01:01 - Impressions Impressions Chest X-Ray 04/23/17 04:39 IMPRESSION: 1. Technically limited by poor inspiratory effort. 2. Mild vascular prominence, likely reflecting sequelae of low lung volumes rather than pulmonary edema. 3. Cardiomegaly, also likely related to low lung volumes and portable technique. 4. No focal consolidation. D/ / 04/23/2017 08:19:46 Kimberly Noble MD / [email or web address] Interpreting Provider: Kimberly Noble MD Consult Discharge Plan - Plan Referrals: Corinne Mullins CNP [Primary Care Provider] - Manav Jackson MD [Non-Partnered Physician] - Prescriptions: OxyCODONE/APAP 10/325 [Percocet 10/325 MG] 1 each PO Q6HR PRN 7 Days #28 tablet PRN Reason: Pain Atorvastatin [Lipitor] 40 mg PO DAILY 30 Days #30 tablet levoFLOXacin [Levaquin] 750 mg PO DAILY 5 Days #5 tablet <CristyAbbe P - Last Filed: 04/24/17 16:21> Date of Encounter: 04/24/17 - Constitutional Vitals: Temp Pulse Resp BP Pulse Ox 97.5 F L 108 18 165/83 96 04/24/17 11:30 04/24/17 11:30 04/24/17 11:30 04/24/17 11:30 04/24/17 11:30 Internal Medicine: Result - Labs CBC & Chem 7: 04/24/17 05:49 04/24/17 05:49 Labs: Short CBC 04/24/17 Range/Units 05:49 WBC 16.0 H (4.3-11.1) K/mcL Hgb 13.4 (11.5-15.4) g/dL Hct 41.6 (35.3-44.9) % Plt Count 249 (140-400) K/mcL Neutrophils # 13.4 H (1.6-8.9) K/mcL BMP 04/24/17 05:49 Sodium 141 Potassium 4.0 Chloride 104 Carbon Dioxide 33 H BUN 21 Creatinine 0.79 Glucose 331 H Calcium 8.7 Liver Function 04/24/17 Range/Units 05:49 Total Bilirubin 0.5 (0.3-1.0) mg/dL AST 17 (13-39) Units/L ALT 24 (7-52) Units/L Alkaline Phosphatase 86 (34-104) Units/L Albumin 3.5 (3.5-5.7) g/dL - ABG Interpretation ABG results: PT/INR, D-dimer PT 11.5 Seconds (9.4-12.1) 04/23/17 01:01 - Attending Attestation I examined this patient and my medical decision-making was reviewed with the Resident Physician. I agree with the documented findings, disposition and treatment plan as described except to the extent set forth below. Awaiting for placement
[2017-04-24] MEDS: Insulin DETEMIR 100 UNIT/ML X5UNITS SQ SCH ×2 (10:15→20:44)
[2017-04-24] MEDS: Insulin LISPRO 300 UNITS/3 ML VIAL SQ SCH ×4 (10:15→21:03)
[2017-04-24] MEDS: Aspirin Enteric Coated 81 MG Tablet PO SCH (10:15)
[2017-04-24] MEDS: Gabapentin 300 MG CAPSULE PO SCH ×3 (10:15→20:44)
[2017-04-24] MEDS: Metoprolol XL (24 HR) Succ 25 MG TAB.ER.24H PO SCH (10:16)
[2017-04-24] MEDS: Multivit/Ca/Min/Fe/FA 1 TAB TABLET PO SCH (10:16)
[2017-04-24] MEDS: levoFLOXacin 500 MG TABLET PO SCH (18:42)
[2017-04-25] MEDS: *HR* OxyCODONE Immed Rel 5 MG TABLET PO PRN ×4 (03:18→19:43)
[2017-04-25] MEDS: Ipratropium/Albuterol Neb 3 ML IH SCH ×4 (04:17→22:34)
[2017-04-25] MEDS: traMADol 50 MG TABLET PO PRN ×2 (05:08→12:22)
[2017-04-25] MEDS: *HR* Heparin 5,000 UNIT/ML VIAL SQ SCH ×3 (05:09→21:19)
--- NOTE | 2017-04-25 08:36 | Discharge Summary ---
<Puma Mcneill - Last Filed: 04/25/17 09:39> Date of Encounter: 04/25/17 Time of Encounter: 08:34 - Discharge Diagnosis (1) Humeral fracture Priority: Primary Status: Acute Qualifiers: Encounter type: initial encounter Humerus Location: proximal Fracture type: closed Fracture morphology: unspecified fracture morphology Laterality : left Qualified Code(s): S42.202A - Unspecified fracture of upper end of left humerus, initial encounter for closed fracture (2) Obesity hypoventilation syndrome Priority: Secondary Status: Acute (3) COPD (chronic obstructive pulmonary disease) Priority: Secondary Status: Chronic Qualifiers: COPD type: emphysema Emphysema type: centrilobular Qualified Code(s): J43.2 - Centrilobular emphysema (4) DVT prophylaxis Priority: Secondary Status: Acute (5) HTN (hypertension) Priority: Secondary Status: Chronic Qualifiers: Hypertension type: essential hypertension Qualified Code(s): I10 - Essential (primary) hypertension (6) IDDM (insulin dependent diabetes mellitus) Priority: Secondary Status: Chronic (7) MALLORY (obstructive sleep apnea) Priority: Secondary Status: Chronic (8) Fall Priority: Secondary Status: Acute Qualifiers: Encounter type: initial encounter Qualified Code(s): W19.XXXA - Unspecified fall, initial encounter (9) Leukocytosis Priority: Secondary Status: Acute Qualifiers: Qualified Code(s): D72.829 - Elevated white blood cell count, unspecified (10) Shortness of breath Priority: Secondary Status: Acute (11) Morbid obesity Priority: Secondary Status: Chronic - Discharge Medications Prescriptions: OxyCODONE/APAP 10/325 [Percocet 10/325 MG] 1 each PO Q6HR PRN 7 Days #28 tablet PRN Reason: Pain Atorvastatin [Lipitor] 40 mg PO DAILY 30 Days #30 tablet levoFLOXacin [Levaquin] 750 mg PO DAILY 5 Days #5 tablet Home Medications: Aspirin Enteric Coated [Aspirin EC] 81 mg PO DAILY #30 tablet. 12/20/14 [Rx] Insulin DETEMIR [Levemir] 80 unit SQ BID 01/23/15 [History] Levothyroxine [Synthroid] 175 mcg PO DAILY 01/23/15 [History] Lisinopril [Zestril] 20 mg PO DAILY 03/28/15 [History] Metoprolol XL (24 HR) Succ [Toprol Xl] 25 mg PO DAILY 03/28/15 [History] Duloxetine HCl 60 mg PO DAILY 04/26/16 [History] Insulin LISPRO [Humalog] 30 - 40 unit SQ TIDWM MDD PER SLIDING SCALE 04/26/16 [ History] Albuterol Sulfate [Albuterol Inhaler] 2 puff IH Q4HR PRN #4 [id number] 04/28/16 [Rx] Gabapentin [Neurontin] 600 mg PO TID 09/23/16 [History] Multivitamin [One Daily Essential] 1 tab PO DAILY 09/23/16 [History] Oxygen 3 l NS CONT 09/23/16 [History] Furosemide [Lasix] 20 mg PO DAILY 04/23/17 [History] Mirabegron [Myrbetriq] 25 mg PO DAILY 04/23/17 [History] Atorvastatin [Lipitor] 40 mg PO DAILY 30 Days #30 tablet 04/24/17 [Rx] Ipratropium/Albuterol Neb [Duoneb] 3 ml IH [id number] inhsol 04/24/17 [Rx] OxyCODONE/APAP 10/325 [Percocet 10/325 MG] 1 each PO Q6HR PRN 7 Days #28 tablet 04/24/17 [Rx] levoFLOXacin [Levaquin] 750 mg PO DAILY 5 Days #5 tablet 04/24/17 [Rx] levoFLOXacin [Levaquin] 500 mg PO DAILY tablet 04/25/17 [Rx] Allergies/Adverse Reactions: 3 Allergy/AdvReac Type Severity Reaction Status Date / Time hydrocodone [From Vicodin] AdvReac Nausea Verified 09/22/16 17:03 metformin [From Glucophage] AdvReac Diarrhea Verified 01/23/15 09:38 Procedures/tests Complete & Pending: Procedures Performed prior 72 hours Category Date Time Status ECG 12 lead ECG [ECG] AM 0600 Y 04/23/17 06:00 Ordered Date of admission: 04/23/17 03:07 Primary care physician: Corinne Mullins, Consults: 04/23/17 04:36 Consult to Nutrition [CONS] Routine Comment: Consulting Provider: NUTRITION Reason for Dietary Consult: MST Score Consult to [employer] [CONS] Routine Reason for SW Consult: Lt humerus fracture, uses home health, possible need for rehab placement 04/23/17 04:42 Consult to Physician [CONS] Routine Consulting Provider: [place] Reason for Consult: humerus fracture Call Completed: No 04/23/17 09:33 Consult to Orthopedic Surgery [CONS] Routine Consulting Provider: [facility] Reason for Consult: L proximal humerus fracture Call Completed: Yes 04/24/17 09:51 Consult to Physical Therapy [CONS] Routine Comment: Evaluate, develop and implement POC Reason for Consult: left proximal humerus impaction fracture 04/24/17 12:02 Consult to Occupational Therapy [CONS] Routine Comment: Evaluate, develop and implement POC Reason for Consult: fractured left humerus - Patient Status Disposition: Transfer SNF Condition: Good Functional capacity at discharge: wheelchair bound Overall status at discharge: patient is not back to baseline - Discharge Instructions Follow Up With: Corinne Mullins CNP [Primary Care Provider] - Manav Jackson MD [Non-Partnered Physician] - - Diet and Activity Activity: as per physical therapy Diet: diabetic diet, low salt diet Hospital course: Ms. Em is a 76 year old female w/ pmh of severe morbid obesity, limited mobility was brought by squad to [facility] ED after sustaining a fall from slipping while moving from her toilet chair to her recliner. Patient stated that after she got off her toilet chair, some urine ended up on the floor, and that was the cause for her to slip. Patient fell on her left side. When patient was brought to [facility] ED, X-ray's were taken of her chest, shoulder, humerus, and elbow. Her left proximal humerus was found to have a impact fracture. Orthopedics was consulted, and in shared decision making with the patient, they decided to conservatively manage the fracture. PT/OT was also consulted, and they recommended SNF physical rehabilitation. Patient was controlled during hospitalization. Patient to be discharged to SNF. Patient to have follow up appointment with Orthopedics in 3 weeks. 1 week supply of pain medication was prescribed. Patient to have PCP follow up within 1 week for pain management, and fracture evaluation On CXR, noted possible PNA. On chart review, patient recently was treated with Azithromycin and then doxycycline with no improvement. Patient was started on levaquin inpatient, and will be discharged with levaquin prescription. Patient experiences SOB on exertion, which is most likely in the setting of her body habitus and hx of COPD. Discussion was had with patient to explore Bariatric Surgery once she recovers. Time spent discussing smoking cessation with patient: more than 10 minutes - Time Spent with Patient Total time spent providing and/or coordinating discharge services: Greater than 30 minutes - Constitutional Vitals: Temp Pulse Resp BP Pulse Ox 97.6 F 99 18 175/105 93 04/25/17 07:33 04/25/17 07:33 04/25/17 07:33 04/25/17 07:33 04/25/17 07:33 General appearance: Present: cooperative, mild distress (due to pain ), A&O X 3 , morbidly obese, pleasant, answers questions appropriately - Respiratory Respiratory exam: Present: prolonged expiratory phase, wheezes. Absent: accessory muscle use, rales, respiratory distress Additional comments: limited due to body habitus - Cardiovascular Cardiovascular exam: Present: RRR. Absent: irregular rhythm, JVD Additional comments: limited due to body habitus - Extremities Exam Extremities exam: Present: normal capillary refill, warm, radial pulses palpable and symmetrical. Absent: calf tenderness, cyanotic, pedal edema Additional comments: right anterior tibial superficial wounds from fall - Expanded Upper Extremities Exam Upper Arm exam: Present: tenderness (guarding with active and passive range of motiion). Absent: full ROM - Psychiatric Psychiatric exam: Present: normal affect, normal mood <Abbe Muniz - Last Filed: 04/25/17 16:19> Date of Encounter: 04/25/17 Procedures/tests Complete & Pending: Procedures Performed prior 72 hours Category Date Time Status ECG 12 lead ECG [ECG] AM 0600 Y 04/23/17 06:00 Ordered Date of admission: 04/23/17 03:07 Primary care physician: Corinne Mullins, Consults: 04/23/17 04:36 Consult to Nutrition [CONS] Routine Comment: Consulting Provider: NUTRITION Reason for Dietary Consult: MST Score Consult to [employer] [CONS] Routine Reason for SW Consult: Lt humerus fracture, uses home health, possible need for rehab placement 04/23/17 04:42 Consult to Physician [CONS] Routine Consulting Provider: [place] Reason for Consult: humerus fracture Call Completed: No 04/23/17 09:33 Consult to Orthopedic Surgery [CONS] Routine Consulting Provider: [facility]oped[facility] Reason for Consult: L proximal humerus fracture Call Completed: Yes 04/24/17 09:51 Consult to Physical Therapy [CONS] Routine Comment: Evaluate, develop and implement POC Reason for Consult: left proximal humerus impaction fracture 04/24/17 12:02 Consult to Occupational Therapy [CONS] Routine Comment: Evaluate, develop and implement POC Reason for Consult: fractured left humerus Hospital course: Ms. Em is a 76 year old female - Time Spent with Patient Total time spent providing and/or coordinating discharge services: - Constitutional Vitals: Temp Pulse Resp BP Pulse Ox 97.9 F 100 16 141/88 98 04/25/17 15:46 04/25/17 15:46 04/25/17 15:46 04/25/17 15:46 04/25/17 15:46 - Attending Attestation I examined this patient and my medical decision-making was reviewed with the Resident Physician. I agree with the documented findings, disposition and treatment plan as described except to the extent set forth below.
[2017-04-25] MEDS: Insulin LISPRO 300 UNITS/3 ML VIAL SQ SCH ×4 (09:25→21:20)
[2017-04-25] MEDS: Insulin DETEMIR 100 UNIT/ML X5UNITS SQ SCH ×2 (09:25→21:19)
[2017-04-25] MEDS: Gabapentin 300 MG CAPSULE PO SCH ×3 (09:27→21:19)
[2017-04-25] MEDS: Metoprolol XL (24 HR) Succ 25 MG TAB.ER.24H PO SCH (09:28)
[2017-04-25] MEDS: levoFLOXacin 500 MG TABLET PO SCH (09:28)
[2017-04-25] MEDS: Multivit/Ca/Min/Fe/FA 1 TAB TABLET PO SCH (09:28)
[2017-04-25] MEDS: Aspirin Enteric Coated 81 MG Tablet PO SCH (09:28)
[2017-04-25] MEDS ORDERED: *HR* Metoprolol 5 MG/5 ML VIAL IVP ONE (21:09)
[2017-04-25] MEDS: *HR* Enoxaparin 100 MG/ML SYRINGE SQ SCH (23:06)
--- NOTE | 2017-04-26 00:22 | Event Note ---
Date of Encounter: 04/25/17 Time of Encounter: 20:00 Reported by RN that pt has tachycardia with HR 160. EKG shows A Flutter RVR. Pt has no hx of A Fib. Give metoprolol 5 mg iv cannot convert HR to sinus. Will start Cardizem iv bolus plus drip. See pt bedside, denies CP or SOB. Give pt lovenox 1mg/kg sc q12h for AC. Check Mg TSH Echo in AM. Hold discharge, consult cardio for new A Fib.
[2017-04-26] MEDS: *HR* OxyCODONE Immed Rel 5 MG TABLET PO PRN ×5 (01:04→20:32)
[2017-04-26] MEDS: Ipratropium/Albuterol Neb 3 ML IH SCH ×4 (04:37→22:36)
[2017-04-26] MEDS: Insulin LISPRO 300 UNITS/3 ML VIAL SQ SCH ×4 (09:19→20:37)
[2017-04-26] MEDS: Insulin DETEMIR 100 UNIT/ML X5UNITS SQ SCH ×2 (09:19→20:38)
[2017-04-26] MEDS: Metoprolol XL (24 HR) Succ 25 MG TAB.ER.24H PO SCH (09:20)
[2017-04-26] MEDS: Gabapentin 300 MG CAPSULE PO SCH ×3 (09:20→20:31)
[2017-04-26] MEDS: Multivit/Ca/Min/Fe/FA 1 TAB TABLET PO SCH (09:20)
[2017-04-26] MEDS: *HR* Enoxaparin 100 MG/ML SYRINGE SQ SCH ×2 (09:20→20:32)
[2017-04-26] MEDS: Aspirin Enteric Coated 81 MG Tablet PO SCH (09:20)
[2017-04-26] MEDS: levoFLOXacin 500 MG TABLET PO SCH (09:20)
--- NOTE | 2017-04-26 09:40 | Internal Med Progress Note ---
<Miller Ruiz - Last Filed: 04/26/17 13:04> Date of Encounter: 04/26/17 Time of Encounter: 09:38 - Assessment and plan (1) Atrial fibrillation with RVR Current Visit: Yes Status: Acute Assessment and plan: New onset Atrial Fibrillation with RVR last evening. Patient was given Metoprolol with conversion to SR. Continued currently on Cardizem Drip [id number] score of 6 (Female 76yrs of age with diastolic CHF, known vascular hx and diabetic) Stroke risk 9.7%year Risk Factors: Morbid obesity, MALLORY, obesity hypoventilation syndrome, DM, diastolic HF, imobility. Possibly had Paroxysmal A-fib undetected prior to admission. Plan: - Continue Cardizem drip with rate control 60-100, goal to switch to PO cardizem - Patient already taking Toprolol XL 25mg daily - Will need care home anticoagulation given stroke risk. - Echocardiogram with new changes. (2) Pneumonia Current Visit: No Status: Acute Assessment and plan: Patient admitted with Humerus Fx and already undergoing PO antibiotics for CAP. - Currently on Levaquin will continue for a total of 5 days. - Respiratory status stable. Qualifiers: Pneumonia type: due to unspecified organism Laterality: right Lung location: upper lobe of lung Qualified Code(s): J18.1 - Lobar pneumonia, unspecified organism (3) IDDM (insulin dependent diabetes mellitus) Current Visit: Yes Status: Chronic Assessment and plan: Type II DM insulin dependent with poor control. Plan: - Continue Levemir 80units BID - Meal time dosing - Low dose insulin sliding scale. - ACHS glucose checks. (4) MALLORY (obstructive sleep apnea) Current Visit: Yes Status: Chronic Assessment and plan: Chronic on going issue (5) Morbid obesity Current Visit: Yes Status: Chronic Assessment and plan: Chronic hx contributing to her acute and chronic medical problems. Patient to follow up with PCP. (6) Obesity hypoventilation syndrome Current Visit: Yes Status: Acute Assessment and plan: BMI 74.9, Recommend wearing CPAP at night. (7) Leukocytosis Current Visit: Yes Status: Acute Assessment and plan: Last WBC 16 with slight elevation. Maybe secondary to stress from Fx, currently on Levaquin for PNA. Patient now has A-fib RVR, will evaluate for other underlining provoking factors. Qualifiers: Qualified Code(s): D72.829 - Elevated white blood cell count, unspecified (8) Left humeral fracture Current Visit: Yes Status: Acute Assessment and plan: Left humerus fx seen by orthopedic surgery and will treat this fracture non- operatively. Sling for the upper extremity. Plans to follow up with Ortho in the outpatient setting in 3 weeks Qualifiers: Qualified Code(s): S42.302A - Unspecified fracture of shaft of humerus, left arm, initial encounter for closed fracture (9) DVT prophylaxis Current Visit: No Status: Acute Assessment and plan: Currently on Lovenox 1mg/kg SC q12hr started yesterday evening for possible AC - Plan to deescalate after Troponin level results - Subjective Interval history: Mrs. Em 76-year-old female seen and evaluated patient bedside this morning. She is without complaint at this time. She states that over the last several months she did have occasional episodes of fluttering or feeling like her heart was dancing in her chest with no previous diagnosis of atrial fibrillation. I had a very thorough discussion regarding atrial fibrillation and a risks and benefits for going on anticoagulation. She understands that we are currently working on rate control and she would likely benefit from long-term anticoagulation. - Constitutional Vitals: Temp Pulse Resp BP Pulse Ox 98.0 F 78 16 101/68 94 04/26/17 09:13 04/26/17 09:13 04/26/17 09:13 04/26/17 09:13 04/26/17 09:13 General appearance: Present: cooperative, mild distress (due to pain ), A&O X 3 , morbidly obese, pleasant, answers questions appropriately Exam: General: Patient alert, awake, oriented 3, interactive, in no acute distress HEENT: Normocephalic, atraumatic, pupils equal reactive to light, oral mucosa moist, uvula midline, neck supple trachea midline no palpable lymphadenopathy, no thyromegaly. Chest: Symmetric bilateral correlating with respiratory effort, effort nonlabored. Cardiac: Regular rate and rhythm, positive S1 and S2. no bruits appreciated bilateral carotids, Radial pulses 2+ bilateral, posterior tibial and dorsal pedal pulses 2+ bilateral. Respiratory: Clear to auscultation all lung issa Abdomen: Soft, obese, nontender, positive bowel sounds, no palpable masses appreciated on examination Extremities: Symmetric bilateral, bilateral lower extremities without erythema or edema patient moving all 4 extremities spontaneously. Left upper extremity in a sling Neurologic: No focal deficits appreciated on examination. Face symmetric, muscle strength symmetric bilateral upper and lower extremities. Internal Medicine: Result - Labs CBC & Chem 7: 04/26/17 09:51 04/26/17 09:51 - ABG Interpretation ABG results: PT/INR, D-dimer PT 11.5 Seconds (9.4-12.1) 04/23/17 01:01 Consult Discharge Plan - Plan Referrals: Corinne Mullins CNP [Primary Care Provider] - Manav Jackson MD [Non-Partnered Physician] - <Abbe Muniz P - Last Filed: 04/26/17 16:26> Date of Encounter: 04/26/17 - Constitutional Vitals: Temp Pulse Resp BP Pulse Ox 97.5 F L 85 16 129/73 99 04/26/17 14:00 04/26/17 14:22 04/26/17 15:59 04/26/17 14:22 04/26/17 15:59 Internal Medicine: Result - Labs CBC & Chem 7: 04/26/17 09:51 04/26/17 09:51 - ABG Interpretation ABG results: PT/INR, D-dimer PT 11.5 Seconds (9.4-12.1) 04/23/17 01:01 - Attending Attestation I examined this patient and my medical decision-making was reviewed with the Resident Physician. I agree with the documented findings, disposition and treatment plan as described except to the extent set forth below. 76/female Had multiple comorbid conditions. Admitted with left humerus fracture. Evaluated by orthopedics and decided to manage this nonoperatively. Patient was discharged to [facility] yesterday. Noted that in the night patient had an atrial fibrillation with rapid ventricular rate. Presently in stepdown unit. Cardiology on the board. We will follow the recommendations from cardiology.
[2017-04-26 10:00] LABS: Basophils # 0.2 K/mcL (0.0-0.2); Hematocrit 43.1 % (35.3-44.9); Hemoglobin 13.5 g/dL (11.5-15.4); Immature Granulocytes % 4.1 % (0-4); Lymphocytes # 1.8 K/mcL (0.6-4.6); Lymphocytes % 12.3 %; Mean Corpuscular HGB Conc 31.3 g/dL (31.6-35.5); Mean Corpuscular Volume 99.1 fL (83.0-100.0); Mean Platelet Volume 9.6 fL (9.4-12.4); Monocytes % 6.8 %; Neutrophils # 11.3 K/mcL (1.6-8.9); Nucleated Red Blood Cells 0.4 /100 WBC (0); Platelet Count 294 K/mcL (140-400); Red Blood Count 4.35 M/mcL (3.82-4.97); Segmented Neutrophils % 75.8 %
[2017-04-26 10:31] LABS: Alanine Aminotransferase 22 Units/L (7-52); Albumin 3.4 g/dL (3.5-5.7); Albumin/Globulin Ratio 1.4 (1.1-2.2); Alkaline Phosphatase 86 Units/L (34-104); Aspartate Amino Transferase 22 Units/L (13-39); BUN/Creatinine Ratio 27 (6-26); Bilirubin,Total 0.6 mg/dL (0.3-1.0); Blood Urea Nitrogen 22 mg/dL (8-23); Calcium 8.3 mg/dL (8.6-10.3); Carbon Dioxide 27 mEq/L (23-29); Chloride 102 mEq/L (98-107); Globulin 2.5 g/dL (2.4-3.5); Glucose 358 mg/dL (70-105); Osmolality,Calculated 304 (280-300); Potassium 3.9 mEq/L (3.5-5.1); Sodium 138 mEq/L (136-145); Total Protein 5.9 g/dL (6.4-8.9); eGFR For African Americans > 60 (> 60); eGFR For Non-African Americans > 60 (> 60)
--- NOTE | 2017-04-26 10:33 | Cardiology Consult Note ---
Date of Encounter: 04/26/17 Time of Encounter: 10:21 Assessment and Plan (1) Atrial flutter with rapid ventricular response Current Visit: Yes Status: Acute Patient with episode of atrial flutter with RVR yesterday evening. Per patient, she has no formal diagnosis, but reports that her symptoms are not new. She reports several month history of chest palpitations with associated shortness of breath. Echocardiogram on 04/26/2016 demonstrated an LVEF of 60-65%. Grossly normal LV chamber size, wall thickness, and function. Mild left ventricular diastolic dysfunction. Right ventricle not well visualized. No obvious significant valvular dysfunction, no evidence of pulmonary hypertension identified. -FU new echo -CHADS-VASc 6, stroke risk of 9.7% -Cardizem drip at 15 mls/hr. Continue to titrate down for goal HR <100. -Increase home metoprolol succinate to 100mg PO daily. -Consult to RT for use of CPAP while hospitalized. -Discuss with patient and Dr. Newman use of novel anticoagulants as patient with history of retinal bleed while on plavix s/p [facility] on 01/23/2015. Discussion w patient/family: The assessment and plan as outlined above was discussed with the patient and/or family members who expressed understanding and agreement. All questions were answered. Thank you for involving us in the care of your patient. Please call with any questions. History of Present Illness Consult date: 04/26/17 Requesting physician: Kathya Trevino Consult reason: New onset atrial fibrillation Chief complaint: Palpitations History of present illness: Ms. Em is a 76 year old female with past medical history of COPD, CAD, type 2 diabetes on insulin, hyperlipidemia, hypertension, myocardial infarction, and renal disease. Patient also reports history of obstructive sleep apnea and obesity hypoventilation syndrome. Patient presented to [facility] on 04/23/2017 after sustaining a fall with subsequent fracture to her left humerus while at her home during transfer between [facility] comode and recliner. Patient was admitted to the hospital for non-operative medical management and pain control of her left proximal humerus fracture. Yesterday evening, on 04/26/2017, patient was about to be discharged from the hospital when she started to complain of chest palpitations. She was found to be in atrial flutter with RVR with heart rates in the 150s. Patient was given a 1 time 5 mg IV push of metoprolol which did not convert her heart rate to sinus rhythm. Patient was given a Cardizem bolus and started on a drip. This morning , her Cardizem drip is running at 15 mls per hour. Her heart rate is in the 80s to 90s and regularly irregular. She appears to have a saw tooth pattern on telemetry consistent with atrial flutter. Patient does not report having a formal diagnosis of atrial flutter or atrial fibrillation in the past, however, she states she has felt heart palpitations for several months. She reports home use of CPAP during the nights. She states she has not used her CPAP since being in the hospital. She states she follows with Dr. Newman. She reports having a LHC here at [place] 1 year ago with 2 stents placed at that time. Past Med Surg Social Fam HX - Past Medical History Attestation: Yes The following information was validated with the patient. Source: patient, old records reviewed, nursing notes reviewed Medical history: arthritis, cancer, COPD, coronary artery disease, diabetes, hyperlipidemia, hypertension, myocardial infarction, renal disease Psychiatric history: anxiety, depression - Past Surgical History Surgical History: appendectomy, cancer surgery, cataract, cholecystectomy, hysterectomy, orthopedic, other, JUAN/BSO - Social History Smoking Status: Former smoker Smokeless Tobacco Status: No Alcohol use: none Drug use: none - Family History Father Living Status: Age at : 49 Cause of : heart disease Hx Family Cardiac Disorders: Yes Mother Adopted: No Family Member Ethnicity: Non- Living Status: Cause of : heart disease Hx Family Cardiac Disorders: Yes Hx Family Respiratory Disorders: No Hx Family Cancer: No Hx Family GI Disorders: No Hx Family Endocrine Disorder: No Hx Family Neuromuscular Disorders: No Hx Family Neurologic Disorders: No Hx Family HEENT Disorders: Yes Hx Family Autoimmune Disorders: No Medications and Allergies Aspirin Enteric Coated [Aspirin EC] 81 mg PO DAILY #30 tablet. 12/20/14 [Rx] Insulin DETEMIR [Levemir] 80 unit SQ BID 01/23/15 [History] Levothyroxine [Synthroid] 175 mcg PO DAILY 01/23/15 [History] Lisinopril [Zestril] 20 mg PO DAILY 03/28/15 [History] Metoprolol XL (24 HR) Succ [Toprol Xl] 25 mg PO DAILY 03/28/15 [History] Duloxetine HCl 60 mg PO DAILY 04/26/16 [History] Insulin LISPRO [Humalog] 30 - 40 unit SQ TIDWM MDD PER SLIDING SCALE 04/26/16 [ History] Albuterol Sulfate [Albuterol Inhaler] 2 puff IH Q4HR PRN #4 [email or web address] 04/28/16 [Rx] Gabapentin [Neurontin] 600 mg PO TID 09/23/16 [History] Multivitamin [One Daily Essential] 1 tab PO DAILY 09/23/16 [History] Oxygen 3 l NS CONT 09/23/16 [History] Furosemide [Lasix] 20 mg PO DAILY 04/23/17 [History] Mirabegron [Myrbetriq] 25 mg PO DAILY 04/23/17 [History] Atorvastatin [Lipitor] 40 mg PO DAILY 30 Days #30 tablet 04/24/17 [Rx] Ipratropium/Albuterol Neb [Duoneb] 3 ml IH [id number] inhsol 04/24/17 [Rx] OxyCODONE/APAP 10/325 [Percocet 10/325 MG] 1 each PO Q6HR PRN 7 Days #28 tablet 04/24/17 [Rx] levoFLOXacin [Levaquin] 750 mg PO DAILY 5 Days #5 tablet 04/24/17 [Rx] levoFLOXacin [Levaquin] 500 mg PO DAILY tablet 04/25/17 [Rx] 3 Allergy/AdvReac Type Severity Reaction Status Date / Time hydrocodone [From Vicodin] AdvReac Nausea Verified 09/22/16 17:03 metformin [From Glucophage] AdvReac Diarrhea Verified 01/23/15 09:38 All Systems Review: A 10-system review of systems was performed and is negative for pertinent findings except as documented above in the HPI. - Constitutional Constitutional: daytime sleepiness, snoring, stops breathing during sleep, no fever(s), no weakness, no weight gain, no weight loss - Cardiovascular Cardiovascular: dyspnea on exertion, irregular heart rhythm, leg edema, palpitations, no chest pain at rest, no chest pain with exertion, no claudication, no diaphoresis, no radiating jaw, neck or arm pain - Respiratory Respiratory: dyspnea, no cough, no hemoptysis - Gastrointestinal Gastrointestinal: no abdominal pain, no coffee ground emesis, no constipation, no diarrhea - Musculoskeletal Musculoskeletal: other (Left sided shoulder pain) Physical Examination Vital Signs, Last 4 Hours Temp Pulse Resp BP Pulse Ox 04/26/17 09:13 98.0 F 78 16 101/68 94 General: Conversant, No Apparent Distress (Patient in orthopedic bed with sling in place over the left shoulder) HEENT: Atraumatic, Normocephaly Cardiac: Normal S1 and S2, Other (Regularly irregular) Lungs: Normal Breath Sounds, No Wheeze, Rales, Rhonchi Neuro: Alert and responsive, No focal deficits noted Abdomen: Soft Extremities: No Clubbing, No Cyanosis, Other (3+ pedal edema) Results 04/26/17 09:51 04/26/17 09:51 Lab Results 04/26/17 04/26/17 04/26/17 04:13 06:15 09:51 WBC 14.9 H Hgb 13.5 Hct 43.1 Plt Count 294 Magnesium 2.5 Troponin I TSH Cancelled 0.687 04/26/17 09:51 WBC Hgb Hct Plt Count Magnesium Troponin I 0.04 H* TSH Consult Discharge Plan - Plan Referrals: Corinne Mullins CNP [Primary Care Provider] - Manav Jackson MD [Non-Partnered Physician] - Prescriptions: OxyCODONE/APAP 10/325 [Percocet 10/325 MG] 1 each PO Q6HR PRN 7 Days #28 tablet PRN Reason: Pain Atorvastatin [Lipitor] 40 mg PO DAILY 30 Days #30 tablet levoFLOXacin [Levaquin] 750 mg PO DAILY 5 Days #5 tablet
[2017-04-26] MEDS ORDERED: Perflutren Lipid Microsphere 1.3 ML in 0.9 % Sodium Chloride 8.7 ML IVP ONE ×2 (12:15→16:29)
[2017-04-26] MEDS: Metoprolol XL (24 HR) Succ 50 MG TAB.ER.24H PO SCH (12:28)
--- NOTE | 2017-04-26 16:49 | Electrocardiograph Report ---
[address] [address] Test Date: 2017-04-25 Pat Name: Deanna Em Department: 114 Room: 2N14 Gender: F Book Sorter: TOD : 1940 Requested By: Abbe Muniz Order Number: [id number] Reading MD: Anna Woods Measurements Intervals [place] Rate: 134 P: CA: 0 QRS: 14 QRSD: 86 T: 0 QT: 147 QTc: 226 Interpretive Statements ATRIAL FLUTTER/TACHYCARDIA WITH RAPID VENTRICULAR RESPONSE NONSPECIFIC ST & T-WAVE ABNORMALITY ABNORMAL RHYTHM ECG Electronically Signed On 04-26-2017 16:47:10 EST by Anna Woods
[2017-04-27] MEDS: *HR* OxyCODONE Immed Rel 5 MG TABLET PO PRN ×4 (03:27→20:26)
[2017-04-27] MEDS: Ipratropium/Albuterol Neb 3 ML IH SCH ×4 (04:30→22:09)
[2017-04-27] MEDS: *HR* Heparin 5,000 UNIT/ML VIAL SQ SCH ×3 (05:42→20:26)
[2017-04-27 07:16] LABS: Hematocrit 41.1 % (35.3-44.9); Hemoglobin 13.2 g/dL (11.5-15.4); Mean Corpuscular HGB Conc 32.1 g/dL (31.6-35.5); Mean Corpuscular Hemoglobin 31.4 pg (28.0-33.3); Mean Corpuscular Volume 97.6 fL (83.0-100.0); Mean Platelet Volume 9.6 fL (9.4-12.4); Platelet Count 263 K/mcL (140-400); Red Blood Count 4.21 M/mcL (3.82-4.97); Red Cell Distribution Width 14.3 % (11.5-14.5)
[2017-04-27 07:17] LABS: Monocytes # 1.3 K/mcL (0.0-1.3); Nucleated Red Blood Cells 0.4 /100 WBC (0)
[2017-04-27 08:42] LABS: Alanine Aminotransferase 29 Units/L (7-52); Albumin 3.3 g/dL (3.5-5.7); Albumin/Globulin Ratio 1.3 (1.1-2.2); Alkaline Phosphatase 84 Units/L (34-104); Aspartate Amino Transferase 24 Units/L (13-39); BUN/Creatinine Ratio 45 (6-26); Bilirubin,Total 0.7 mg/dL (0.3-1.0); Blood Urea Nitrogen 34 mg/dL (8-23); Carbon Dioxide 32 mEq/L (23-29); Chloride 105 mEq/L (98-107); Globulin 2.5 g/dL (2.4-3.5); Glucose 253 mg/dL (70-105); Osmolality,Calculated 308 (280-300); Potassium 4.3 mEq/L (3.5-5.1); Sodium 141 mEq/L (136-145); Total Protein 5.8 g/dL (6.4-8.9); eGFR For African Americans > 60 (> 60); eGFR For Non-African Americans > 60 (> 60)
[2017-04-27] MEDS: Gabapentin 300 MG CAPSULE PO SCH ×3 (08:53→20:26)
[2017-04-27] MEDS: Metoprolol XL (24 HR) Succ 50 MG TAB.ER.24H PO SCH (08:53)
[2017-04-27] MEDS: Aspirin Enteric Coated 81 MG Tablet PO SCH (08:53)
[2017-04-27] MEDS: Multivit/Ca/Min/Fe/FA 1 TAB TABLET PO SCH (08:53)
[2017-04-27] MEDS: Insulin LISPRO 300 UNITS/3 ML VIAL SQ SCH ×4 (08:54→21:04)
[2017-04-27] MEDS: levoFLOXacin 500 MG TABLET PO SCH (08:54)
[2017-04-27] MEDS: Insulin DETEMIR 100 UNIT/ML X5UNITS SQ SCH ×2 (08:56→21:04)
[2017-04-27 09:35] LABS: Lymphocytes # 2.8 K/mcL (0.6-4.6); Neutrophils # 11.7 K/mcL (1.6-8.9); Platelet Estimate Normal (Normal); Reactive Lymphocytes Present (Not Present)
--- NOTE | 2017-04-27 09:58 | Cardiology Progress Note ---
Date of Encounter: 04/27/17 Time of Encounter: 09:52 Assessment and Plan (1) Atrial flutter with rapid ventricular response Current Visit: Yes Status: Acute Patient with episode of atrial flutter with RVR prior to initally planned discharge on 04/25/2017. Per patient, she has no formal diagnosis, but reports that her symptoms are not new. She reports several month history of chest palpitations with associated shortness of breath. Echocardiogram on 04/26/2016 demonstrated an LVEF of 60-65%. Grossly normal LV chamber size, wall thickness, and function. Mild left ventricular diastolic dysfunction. Right ventricle not well visualized. No obvious significant valvular dysfunction, no evidence of pulmonary hypertension identified. -CHADS-VASc 6, stroke risk of 9.7%- history of hemorrhagic retinopathy and vision loss while taking plavix after [facility] in 2014. Not a candidate for chronic anticoagulation. -Cardizem drip at 5 mls/hr. Continue to titrate down for goal HR <100. -Increased home metoprolol succinate to 100mg PO daily on 04/27/2017. -Consult to RT for use of CPAP while hospitalized. -Cardiology to sign off as patient's HR controlled. Will coordinate follow up with [facility] as an outpatient in 3-4 weeks. (2) CAD (coronary artery disease) Current Visit: No Status: Chronic Patient with history of CAD -Continue current medical management with ASA, BB, and high intensity statin. Qualifiers: Coronary Disease-Associated Artery/Lesion type: [place] artery [place] vs. transplanted heart: [place] heart Associated angina: without angina Qualified Code(s): I25.10 - Atherosclerotic heart disease of [place] coronary artery without angina pectoris (3) Dyslipidemia Current Visit: Yes Status: Acute Continue high intensity statin. Discussion w patient/family: The assessment and plan as outlined above was discussed with the patient and/or family members who expressed understanding and agreement. All questions were answered. Thank you for involving us in the care of your patient. Please call with any questions. Subjective Principal diagnosis: Atrial Flutter Interval history: Ms. Em is a 76 year old female with past medical history of COPD, CAD, type 2 diabetes on insulin, hyperlipidemia, hypertension, myocardial infarction, and renal disease. Patient also reports history of obstructive sleep apnea and obesity hypoventilation syndrome. She reports no feelings of chest pain, pressure or palpitations this morning. She does report exertional dyspnea, but nothing greater than her baseline. She denies nausea, diaphoresis, diarrhea, or abdominal pain. She states her only complain is of her left upper extremity pain , which is currently being treated non-operatively for a humerous fracture. Diltiazem running at 5mls/hr with HR's in the 70-80's. Objective Vital Signs, Last 4 Hours Temp Pulse Resp BP Pulse Ox 04/27/17 07:58 98.2 F 76 19 150/83 98 General: Conversant, No Apparent Distress HEENT: Atraumatic, Normocephaly Cardiac: Normal S1 and S2, Other (regularly irregular) Lungs: Normal Breath Sounds Neuro: Alert and responsive, No focal deficits noted Abdomen: Soft, Other (morbidly obese) Musculoskeletal: No Chest Wall Tenderness Extremities: No Clubbing, No Cyanosis, Other (3+ pitting edema) Results 04/27/17 06:50 04/27/17 08:14 Lab Results 04/27/17 04/27/17 06:50 08:14 WBC 16.2 H Hgb 13.2 Hct 41.1 Plt Count 263 Sodium 141 Potassium 4.3 Chloride 105 Carbon Dioxide 32 H BUN 34 H Creatinine 0.76 Glucose 253 H Calcium 9.0 Total Bilirubin 0.7 AST 24 ALT 29 Alkaline Phosphatase 84 Consult Discharge Plan - Plan Referrals: Corinne Mullins CNP [Primary Care Provider] - 05/03/17 1:00 pm Nader Mcbride MD [Partnered Physician] - 06/16/17 2:00 pm Manav Jackson MD [Non-Partnered Physician] - 05/06/17 10:00 am
--- NOTE | 2017-04-27 11:06 | Internal Med Progress Note ---
Date of Encounter: 04/27/17 Time of Encounter: 11:04 - Assessment and plan (1) Atrial fibrillation with RVR Current Visit: Yes Status: Acute Assessment and plan: New onset Atrial Fibrillation with RVR last evening. Cardiology is following. Remains on Cardizem drip. Beta jamaal has been increased 200 mg daily. We will try to wean her off the Cardizem drip today and possibly discharge in the next day or 2. Will need to be placed. No anticoagulation due to history of bleed. (2) Left humeral fracture Current Visit: Yes Status: Acute Assessment and plan: Left humerus fx seen by orthopedic surgery and will treat this fracture non- operatively. Sling for the upper extremity. Plans to follow up with Ortho in the outpatient setting in 3 weeks Qualifiers: Encounter type: subsequent encounter Humerus Location: proximal Fracture type: closed Fracture morphology: other fracture Fracture alignment: displaced Fracture healing: with routine healing Qualified Code(s): S42.292D - Other displaced fracture of upper end of left humerus, subsequent encounter for fracture with routine healing (3) Leukocytosis Current Visit: Yes Status: Acute Assessment and plan: Continues to be elevated. No fever. No obvious source of infection however she has been treated for suspected pneumonia. Maybe secondary to stress from Fx , currently on Levaquin for PNA. Qualifiers: Leukocytosis type: unspecified Qualified Code(s): D72.829 - Elevated white blood cell count, unspecified (4) Obesity hypoventilation syndrome Current Visit: Yes Status: Acute Assessment and plan: BMI 74.9, Recommend wearing CPAP at night. (5) IDDM (insulin dependent diabetes mellitus) Current Visit: Yes Status: Chronic Assessment and plan: Glucose consistently in the 200s for the most part. Increase Levemir to 85 units twice a day from 80 units twice a day. Continue mealtime coverage. Continue insulin sliding scale. Continue Accu-Cheks. (6) Morbid obesity Current Visit: Yes Status: Chronic Assessment and plan: Chronic hx contributing to her acute and chronic medical problems. Patient to follow up with PCP. (7) Pneumonia Current Visit: Yes Status: Suspected Assessment and plan: Patient has been started on Levaquin. Qualifiers: Pneumonia type: due to unspecified organism Laterality: left Lung location: lower lobe of lung Qualified Code(s): J18.1 - Lobar pneumonia, unspecified organism (8) DVT prophylaxis Current Visit: No Status: Acute Assessment and plan: Heparin Subcutaneous - Subjective Interval history: Patient was seen and examined. Admitted initially for an acute comminuted impacted fracture of the left humerus that has been treated conservatively by orthopedics. Stay has been complicated by new onset atrial fibrillation for which cardiology has been consulted and she was transferred to [facility] for that. Currently she is hemodynamically stable. She is still maintained on a Cardizem drip. Her rate is much better controlled. She is afebrile. - Constitutional Vitals: Temp Pulse Resp BP Pulse Ox 98.2 F 76 19 150/83 98 04/27/17 07:58 04/27/17 07:58 04/27/17 07:58 04/27/17 07:58 04/27/17 07:58 General appearance: Present: cooperative, mild distress (due to pain ), A&O X 3 , morbidly obese, pleasant, answers questions appropriately Exam: GEN: NAD CVS: irregular. S1, S2, No m/r/g RESP: CTAB ABD: Soft, NT, ND, +BS EXT: No edema. 2+ DP. No rashes NEURO: Nonfocal Internal Medicine: Result - Labs CBC & Chem 7: 04/27/17 06:50 04/27/17 08:14 Labs: Short CBC 04/27/17 Range/Units 06:50 WBC 16.2 H (4.3-11.1) K/mcL Hgb 13.2 (11.5-15.4) g/dL Hct 41.1 (35.3-44.9) % Plt Count 263 (140-400) K/mcL Neutrophils # 11.7 H (1.6-8.9) K/mcL BMP 04/27/17 08:14 Sodium 141 Potassium 4.3 Chloride 105 Carbon Dioxide 32 H BUN 34 H Creatinine 0.76 Glucose 253 H Calcium 9.0 Liver Function 04/27/17 Range/Units 08:14 Total Bilirubin 0.7 (0.3-1.0) mg/dL AST 24 (13-39) Units/L ALT 29 (7-52) Units/L Alkaline Phosphatase 84 (34-104) Units/L Albumin 3.3 L (3.5-5.7) g/dL - ABG Interpretation ABG results: PT/INR, D-dimer PT 11.5 Seconds (9.4-12.1) 04/23/17 01:01 - Impressions Impressions Echocardiogram 04/26/17 21:51 Impressions: Technically challenging due to body habitus. LVEF 55%. Definity was used. Indeterminate diastolic function. RV is not well visualized. Valves were not well visualized on this study. Unable to estimate RVSP. Left Ventricular Wall Motion: Rest Echo Findings The basal anterior septal and basal inferior lateral mcgill were not visualized. All other wall segments showed normal motion. Findings: Study Quality * Technically challenging due to body habitus. ECG Findings * Atrial fibrillation. Left Ventricle * LVEF 55%. * Indeterminate diastolic function. * Normal LV size. * LV wall thickness measurements not well obtained. * Definity echo contrast was used. Right Ventricle * RV is not well visualized. Left Atrium * Left atrium is not well visualized. Right Atrium * Right atrium is not well visualized. Aortic Valve * Aortic valve not well visualized. * No aortic regurgitation. * Suboptimal Doppler interrogation. Mitral Valve * Mitral valve not well visualized. * No mitral regurgitation. * No mitral stenosis. Tricuspid Valve * Tricuspid valve not well visualized. * No tricuspid regurgitation. Pulmonic Valve * Pulmonic valve is not well visualized. * No pulmonic stenosis. * No pulmonic regurgitation. Pulmonary Artery * Pulmonary artery not well visualized. Aorta * Not well visualized. Interatrial Septum * Interatrial septum not well evaluated. IVC * The IVC is not well evaluated. Consult Discharge Plan - Plan Referrals: Corinne Mullins CNP [Primary Care Provider] - 05/03/17 1:00 pm Nader Mcbride MD [Partnered Physician] - 06/16/17 2:00 pm Manav Jackson MD [Non-Partnered Physician] - 05/06/17 10:00 am
[2017-04-27] MEDS: traMADol 50 MG TABLET PO PRN ×2 (11:14→20:26)
[2017-04-27] MEDS: Sennosides/Docusate Sodium TABLET PO SCH ×2 (12:10→20:27)
[2017-04-27] MEDS ORDERED: Insulin DETEMIR 100 UNIT/ML X5UNITS SQ ONE (15:00)
[2017-04-28] MEDS: *HR* OxyCODONE Immed Rel 5 MG TABLET PO PRN ×3 (01:03→13:01)
[2017-04-28] MEDS: Ipratropium/Albuterol Neb 3 ML IH SCH ×2 (04:35→10:40)
[2017-04-28] MEDS: *HR* Heparin 5,000 UNIT/ML VIAL SQ SCH ×2 (06:03→14:34)
[2017-04-28 07:51] LABS: Basophils # 0.1 K/mcL (0.0-0.2); Basophils % 0.8 %; Eosinophils % 0.1 %; Hematocrit 42.7 % (35.3-44.9); Hemoglobin 13.6 g/dL (11.5-15.4); Immature Granulocytes % 6.2 % (0-4); Lymphocytes # 2.8 K/mcL (0.6-4.6); Lymphocytes % 16.5 %; Mean Corpuscular HGB Conc 31.9 g/dL (31.6-35.5); Mean Corpuscular Hemoglobin 31.4 pg (28.0-33.3); Mean Corpuscular Volume 98.6 fL (83.0-100.0); Mean Platelet Volume 10.4 fL (9.4-12.4); Monocytes # 1.6 K/mcL (0.0-1.3); Monocytes % 9.6 %; Neutrophils # 11.3 K/mcL (1.6-8.9); Nucleated Red Blood Cells 0.7 /100 WBC (0); Platelet Count 292 K/mcL (140-400); Red Blood Count 4.33 M/mcL (3.82-4.97); Red Cell Distribution Width 14.2 % (11.5-14.5); Segmented Neutrophils % 66.8 %
[2017-04-28 08:29] LABS: Platelet Estimate Normal (Normal)
[2017-04-28] MEDS: Gabapentin 300 MG CAPSULE PO SCH ×2 (08:40→14:34)
[2017-04-28] MEDS: Sennosides/Docusate Sodium TABLET PO SCH (08:40)
[2017-04-28] MEDS: Multivit/Ca/Min/Fe/FA 1 TAB TABLET PO SCH (08:41)
[2017-04-28] MEDS: levoFLOXacin 500 MG TABLET PO SCH (08:41)
[2017-04-28] MEDS: Metoprolol XL (24 HR) Succ 50 MG TAB.ER.24H PO SCH (08:41)
[2017-04-28] MEDS: Aspirin Enteric Coated 81 MG Tablet PO SCH (08:41)
[2017-04-28] MEDS: Insulin LISPRO 300 UNITS/3 ML VIAL SQ SCH ×2 (08:41→13:02)
[2017-04-28] MEDS ORDERED: Insulin DETEMIR 100 UNIT/ML X5UNITS SQ SCH (09:00)
--- NOTE | 2017-04-28 09:33 | Discharge Summary ---
Date of Encounter: 04/28/17 Time of Encounter: 13:00 - Discharge Diagnosis (1) Left humeral fracture Priority: Primary Status: Acute Qualifiers: Encounter type: subsequent encounter Humerus Location: proximal Fracture type: closed Fracture morphology: other fracture Fracture alignment: displaced Fracture healing: with routine healing Qualified Code(s): S42.292D - Other displaced fracture of upper end of left humerus, subsequent encounter for fracture with routine healing (2) Atrial fibrillation with RVR Priority: Secondary Status: Acute (3) Leukocytosis Priority: Secondary Status: Acute Qualifiers: Leukocytosis type: unspecified Qualified Code(s): D72.829 - Elevated white blood cell count, unspecified (4) Obesity hypoventilation syndrome Priority: Secondary Status: Acute (5) IDDM (insulin dependent diabetes mellitus) Priority: Secondary Status: Chronic (6) Morbid obesity Priority: Secondary Status: Chronic (7) Pneumonia Priority: Secondary Status: Suspected Qualifiers: Pneumonia type: due to unspecified organism Laterality: left Lung location: lower lobe of lung Qualified Code(s): J18.1 - Lobar pneumonia, unspecified organism (8) DVT prophylaxis Priority: Secondary Status: Acute - Discharge Medications Prescriptions: levoFLOXacin [Levaquin] 500 mg PO DAILY #3 tablet Home Medications: Aspirin Enteric Coated [Aspirin EC] 81 mg PO DAILY #30 tablet. 12/20/14 [Rx] Insulin DETEMIR [Levemir] 80 unit SQ BID 01/23/15 [History] Levothyroxine [Synthroid] 175 mcg PO DAILY 01/23/15 [History] Lisinopril [Zestril] 20 mg PO DAILY 03/28/15 [History] Duloxetine HCl 60 mg PO DAILY 04/26/16 [History] Insulin LISPRO [Humalog] 30 - 40 unit SQ TIDWM MDD PER SLIDING SCALE 04/26/16 [ History] Albuterol Sulfate [Albuterol Inhaler] 2 puff IH Q4HR PRN #4 hfa.aer.ad 04/28/16 [Rx] Gabapentin [Neurontin] 600 mg PO TID 09/23/16 [History] Multivitamin [One Daily Essential] 1 tab PO DAILY 09/23/16 [History] Oxygen 3 l NS CONT 09/23/16 [History] Furosemide [Lasix] 20 mg PO DAILY 04/23/17 [History] Mirabegron [Myrbetriq] 25 mg PO DAILY 04/23/17 [History] Atorvastatin [Lipitor] 40 mg PO DAILY 30 Days #30 tablet 04/24/17 [Rx] Ipratropium/Albuterol Neb [Duoneb] 3 ml IH [id number] inhsol 04/24/17 [Rx] OxyCODONE/APAP 10/325 [Percocet 10/325 MG] 1 each PO Q6HR PRN 7 Days #28 tablet 04/24/17 [Rx] Metoprolol XL (24 HR) Succ [Toprol Xl] 100 mg PO DAILY tab.er.24h 04/28/17 [Rx] Sennosides/Docusate Sodium [Senna Plus] 2 each PO BID tablet 04/28/17 [Rx] levoFLOXacin [Levaquin] 500 mg PO DAILY #3 tablet 04/28/17 [Rx] Allergies/Adverse Reactions: 3 Allergy/AdvReac Type Severity Reaction Status Date / Time hydrocodone [From Vicodin] AdvReac Nausea Verified 09/22/16 17:03 metformin [From Glucophage] AdvReac Diarrhea Verified 01/23/15 09:38 Procedures/tests Complete & Pending: Procedures Performed prior 72 hours Category Date Time Status ECG 12 lead ECG [ECG] Routine Y 04/25/17 21:15 Completed Date of admission: 04/26/17 12:38 Primary care physician: Corinne Mullins, Consults: 04/23/17 04:36 Consult to Nutrition [CONS] Routine Comment: Consulting Provider: NUTRITION Reason for Dietary Consult: MST Score Consult to Loan Reviewer [CONS] Routine Reason for SW Consult: Lt humerus fracture, uses home health, possible need for rehab placement 04/23/17 04:42 Consult to Physician [CONS] Routine Consulting Provider: [place] Reason for Consult: humerus fracture Call Completed: No 04/23/17 09:33 Consult to Orthopedic Surgery [CONS] Routine Consulting Provider: [facility] Reason for Consult: L proximal humerus fracture Call Completed: Yes 04/24/17 09:51 Consult to Physical Therapy [CONS] Routine Comment: Evaluate, develop and implement POC Reason for Consult: left proximal humerus impaction fracture 04/24/17 12:02 Consult to Occupational Therapy [CONS] Routine Comment: Evaluate, develop and implement POC Reason for Consult: fractured left humerus 04/25/17 21:52 Consult to Cardiology [CONS] Routine Comment: Consulting Provider: [facility] [place] Reason for Consult: New onset A Fib Call Completed: No 04/26/17 11:00 Consult to Respiratory Therapy [CONS] Routine Reason for Consult: Patient on CPAP at home for MALLORY. Need cpap for sleep while hospitalized. Call Completed: No Discharging clinician: Maddie Keith Anticipated date of discharge: 04/29/17 - Patient Status Disposition: Transfer SNF Condition: Good Functional capacity at discharge: uses cane/walker Overall status at discharge: patient is progressing back to baseline - Discharge Instructions Instructions: Myocardial Infarction (DC), Atrial Flutter (DC), Atrial Fibrillation (DC), Acute Respiratory Distress Syndrome (DC), Arm Fracture in Adults (DC), Hypothyroidism (DC), Diabetes Mellitus Type 2 in Adults (DC), Chronic Obstructive Pulmonary Disease (DC), Chronic Hypertension (DC), Fall Prevention (DC), Pneumonia (DC) Follow Up With: Corinne Mullins CNP [Primary Care Provider] - 05/03/17 1:00 pm Nader Mcbride MD [Partnered Physician] - 06/16/17 2:00 pm Manav Jackson MD [Non-Partnered Physician] - 05/06/17 10:00 am - Diet and Activity Activity: as per physical therapy, increase activity as tolerated Diet: diabetic diet, low fat, low cholesterol, low salt diet Hospital course: Ms. Em is a 76 year old female history of of severe morbid obesity, limited mobility was brought by squad to [place] [facility] after sustaining a fall from slipping while moving from her toilet chair to her recliner. Patient stated that after she got off her toilet chair, some urine ended up on the floor, and that was the cause for her to slip. Patient fell on her left side. When patient was brought to [place] ED, X-ray's were taken of her chest, shoulder, humerus, and elbow. Her left proximal humerus was found to have a impact fracture. Orthopedics was consulted, and in shared decision making with the patient, they decided to conservatively manage the fracture. PT/OT was also consulted, and they recommended SNF physical rehabilitation. While this was being worked on for the patient, she developed rapid A. fib. She was given intravenous metoprolol and then transitioned to Cardizem drip as she continued to be in A. fib. Cardiology was consulted. Recommended increasing the patient's metoprolol XL dosage to 100 mg daily. Patient is not a candidate for anticoagulation due to history of hemorrhagic retinopathy. She has been rate controlled since then and has been off the Cardizem drip for 24 hours. She is now stable to be discharged to skilled rehabilitation. She will receive physical therapy there. She will follow up with cardiology as outpatient for further management of her atrial fibrillation. She will also follow-up with orthopedics for management of fracture. - Time Spent with Patient Total time spent providing and/or coordinating discharge services: Greater than 30 minutes (35 min) - Constitutional Vitals: Temp Pulse Resp BP Pulse Ox 98.4 F 96 20 139/90 94 04/28/17 07:29 04/28/17 07:29 04/28/17 07:29 04/28/17 07:29 04/28/17 07:29 General appearance: Present: cooperative, mild distress (due to pain ), A&O X 3 , morbidly obese, pleasant, answers questions appropriately - Respiratory Respiratory exam: Present: CTAB. Absent: accessory muscle use, rales, rhonchi, wheezes - Cardiovascular Cardiovascular exam: Present: irregular rhythm, +S1, +S2. Absent: diastolic murmur, gallop, rubs, systolic murmur - GI/Abdominal GI/Abdominal exam: Present: normal bowel sounds, soft, no peritoneal signs. Absent: distended, tenderness - Extremities Exam Extremities exam: Present: warm, radial pulses palpable and symmetrical. Absent : calf tenderness, cyanotic, pedal edema Additional comments: Left upper extremity in sling - Neurological Exam Neurological exam: Present: CN II-XII intact, oriented X3, no focal deficits. Absent: facial droop, speech deficit - Skin Skin exam: Present: dry, intact
[2017-04-28 10:43] LABS: BUN/Creatinine Ratio 39 (6-26); Blood Urea Nitrogen 41 mg/dL (8-23); Calcium 9.1 mg/dL (8.6-10.3); Carbon Dioxide 30 mEq/L (23-29); Chloride 102 mEq/L (98-107); Glucose 382 mg/dL (70-105); Osmolality,Calculated 316 (280-300); Potassium 5.4 mEq/L (3.5-5.1); Sodium 140 mEq/L (136-145); eGFR For African Americans > 60 (> 60); eGFR For Non-African Americans 51 (> 60)
[2017-04-28 11:33] VITALS: BP 123/80
--- NOTE | 2017-04-28 12:10 | Electrocardiograph Report ---
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
--- NOTE | 2017-04-28 13:55 | Physician Discharge Referral ---
ExtendedCare Referral Info Provider in Charge after Transfer: PCP Institutional Level of Care: Skilled - Diagnosis (1) Left humeral fracture Priority: Primary Status: Acute (2) Atrial fibrillation with RVR Priority: Secondary Status: Acute (3) Leukocytosis Priority: Secondary Status: Acute (4) Obesity hypoventilation syndrome Priority: Secondary Status: Acute (5) IDDM (insulin dependent diabetes mellitus) Priority: Secondary Status: Chronic (6) Morbid obesity Priority: Secondary Status: Chronic (7) Pneumonia Priority: Secondary Status: Suspected (8) DVT prophylaxis Priority: Secondary Status: Acute Prognosis: Fair Aware of Diagnosis: Patient Aware of Prognosis: Patient - Transfer Medications Prescriptions: levoFLOXacin [Levaquin] 500 mg PO DAILY #3 tablet Home Medications: Aspirin Enteric Coated [Aspirin EC] 81 mg PO DAILY #30 tablet.dr 12/20/14 [Rx] Insulin DETEMIR [Levemir] 80 unit SQ BID 01/23/15 [History] Levothyroxine [Synthroid] 175 mcg PO DAILY 01/23/15 [History] Lisinopril [Zestril] 20 mg PO DAILY 03/28/15 [History] Duloxetine HCl 60 mg PO DAILY 04/26/16 [History] Insulin LISPRO [Humalog] 30 - 40 unit SQ TIDWM MDD PER SLIDING SCALE 04/26/16 [ History] Albuterol Sulfate [Albuterol Inhaler] 2 puff IH Q4HR PRN #4 hfa.aer.ad 04/28/16 [Rx] Gabapentin [Neurontin] 600 mg PO TID 09/23/16 [History] Multivitamin [One Daily Essential] 1 tab PO DAILY 09/23/16 [History] Oxygen 3 l NS CONT 09/23/16 [History] Furosemide [Lasix] 20 mg PO DAILY 04/23/17 [History] Mirabegron [Myrbetriq] 25 mg PO DAILY 04/23/17 [History] Atorvastatin [Lipitor] 40 mg PO DAILY 30 Days #30 tablet 04/24/17 [Rx] Ipratropium/Albuterol Neb [Duoneb] 3 ml IH [id number] inhsol 04/24/17 [Rx] OxyCODONE/APAP 10/325 [Percocet 10/325 MG] 1 each PO Q6HR PRN 7 Days #28 tablet 04/24/17 [Rx] Metoprolol XL (24 HR) Succ [Toprol Xl] 100 mg PO DAILY tab.er.24h 04/28/17 [Rx] Sennosides/Docusate Sodium [Senna Plus] 2 each PO BID tablet 04/28/17 [Rx] levoFLOXacin [Levaquin] 500 mg PO DAILY #3 tablet 04/28/17 [Rx] Allergies/Adverse Reactions: 3 Allergy/AdvReac Type Severity Reaction Status Date / Time hydrocodone [From Vicodin] AdvReac Nausea Verified 09/22/16 17:03 metformin [From Glucophage] AdvReac Diarrhea Verified 01/23/15 09:38 - Respiratory Orders Smoking Cessation: Smoking cessation has been advised. For more information, call the [place] Tobacco Quit Line at 7-572-EJSQ-NOW. - Ancillary Orders May consult with Dentist, Sld Educational Aide, Supervisor Tower PRN - Advance Directives Code Status: Full Code - Mobility Orders Other (per PT) - Rehabiliation Orders Rehab Potential: Fair Rehab Orders: Evaluation for Physical Therapy, Evaluation for Occupational Therapy - Diet Orders No Concentrated Sweets (and diabetic), Cardiac CERTIFICATION: I certify that the transfer of the above named patient to an Extended Care Facility is necessary for the continuing treatment of the diagnosis listed. The above information is true and accurate reflection of patient's current condition. Confidential - Redisclosure prohibited without a patient's written consent.
[2017-04-28] MEDS ORDERED: Insulin LISPRO 300 UNITS/3 ML VIAL SQ SCH (16:30)
== END 2017-04-28 15:58 | DRG 562 ==
LOC: EMEROO 23:11 → 3NENU 23:11 → SUATTDRO 04-23 03:07 → 3NENU 04-23 04:20 → SUATTDRO 04-26 12:38 → 2NNU 04-26 14:15
PROVIDERS: ADMIT Pediatrics; ATTEND Internal Medicine

== ENCOUNTER 2017-09-21 11:38 | Inpatient (IN) ==
--- NOTE | 2017-09-21 11:46 | Emergency Department Note ---
Disposition Clinical Impression: Hypercarbia, Elevated troponin COPD (chronic obstructive pulmonary disease) Qualifiers: COPD type: unspecified COPD Qualified Code(s): J44.9 - Chronic obstructive pulmonary disease, unspecified Disposition: Admitted As Inpatient Condition: Fair Referrals: Corinne Mullins CNP [Primary Care Provider] - Time of Disposition: 12:59 SOB HPI - General Stated Complaint: Time Seen by Provider: 09/21/17 11:42 Source: patient, EMS Mode of arrival: EMS Limitations: no limitations Nursing Notes Reviewed: Yes Vital Signs Reviewed: Yes - History of Present Illness Patient presents with increasing dyspnea. She complains of nausea and dry heaves. She has 4 L of oxygen dependent at baseline. She was found to be hypoxic by EMS personnel with a pulse ox in the 60s. The patient is minimally ambulatory at baseline and has a history of obesity. Pt Subjective Complaint: shortness of breath Onset (ago): day(s) Severity: severe Consistency/Duration: gradually worsening Improves with: nothing Worsens with: nothing Associated symptoms: Reports: nausea/vomiting Treatment prior to arrival: oxygen Cough present: No - Related Data Home oxygen amount: 4 liters Home Medications Medication Instructions Recorded Confirmed Levothyroxine [Synthroid] 175 mcg PO DAILY 01/23/15 09/21/17 Duloxetine HCl 60 mg PO DAILY 04/26/16 09/21/17 Multivitamin [One Daily Essential] 1 tab PO DAILY 09/23/16 09/21/17 Oxygen 3 l NS CONT 09/23/16 09/21/17 Atorvastatin Calcium [Lipitor] 80 mg PO HS 05/11/17 09/21/17 Metoprolol Succinate [Toprol Xl] 25 mg PO DAILY 05/11/17 09/21/17 Mirabegron [Myrbetriq] 50 mg PO DAILY 05/11/17 09/21/17 Furosemide [Lasix] 20 mg PO DAILY 09/21/17 09/21/17 Insulin DETEMIR [Levemir] 30 unit SQ BID 09/21/17 09/21/17 Insulin LISPRO [HumaLOG] 0 units SQ TIDAC PRN 09/21/17 09/21/17 Lisinopril [Zestril] 20 mg PO DAILY 09/21/17 09/21/17 Previous Rx's Medication Instructions Recorded Aspirin Enteric Coated [Aspirin EC] 81 mg PO DAILY #30 tablet. 12/20/14 Albuterol Sulfate [Albuterol 2 puff IH Q4HR PRN #4 hfa.aer.ad 04/28/16 Inhaler] Acetaminophen [Tylenol] 650 mg PO Q6HR PRN tablet 05/19/17 Docusate [Colace] 100 mg PO BID PRN capsule 05/19/17 Nystatin POWDER [Nystop] 1 appl TP BID bottle 05/19/17 Polyethylene Glycol 3350 [MiraLAX] 17 gm PO DAILY powd.pack 05/19/17 Potassium Chloride 10 meq PO DAILY #30 tab.er.prt 06/02/17 Allergies Allergy/AdvReac Type Severity Reaction Status Date / Time hydrocodone [From Vicodin] AdvReac Nausea Verified 09/22/16 17:03 metformin [From Glucophage] AdvReac Diarrhea Verified 01/23/15 09:38 All systems ED: reviewed and negative except as stated. Constitutional: Reports: weakness Eyes: Reports: as per HPI ENT ED: Reports: as per HPI Cardiovascular: Reports: as per HPI Respiratory: Reports: dyspnea Gastrointestinal: Reports: nausea, vomiting Genitourinary: Reports: as per HPI Musculoskeletal: Reports: as per HPI Integumentary: Reports: as per HPI Neurological: Reports: as per HPI Psychiatric: Reports: as per HPI Endocrine: Reports: as per HPI Hematological/Lymphatic: Reports: as per HPI Allergic/Immunologic: Reports: as per HPI Past Medical History - Past Medical History Source: old records reviewed Medical history: Reports: arthritis, atrial fibrillation, cancer, COPD, coronary artery disease, diabetes, hyperlipidemia, hypertension, myocardial infarction, renal disease Surgical history: Reports: appendectomy, cancer surgery, cataract, cholecystectomy, hysterectomy, orthopedic, other, JUAN/BSO Psychiatric history: Reports: anxiety, depression 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 Lying supine - General Limitations: no limitations General appearance: alert - Head Head exam: atraumatic - Eye Eye exam: Present: normal appearance - ENT ENT exam: normal exam - Neck Neck exam: Present: normal inspection, full ROM - Chest Chest inspection: Present: normal inspection, symmetric chest wall rise - Respiratory Respiratory exam: Present: other (Decreased breath sounds bilaterally) - Cardiovascular Cardiovascular exam: Present: normal rhythm, tachycardia, normal heart sounds - Abdominal Exam Abdominal exam: Present: soft, Non-Tender (Obese) - Rectal Exam Rectal exam: Present: deferred - Extremities Exam Extremities exam: Present: pedal edema - Neurological Exam Neurological exam: Present: alert, oriented X3, CN II-XII intact - Psychiatric Psychiatric exam: Present: normal affect, normal mood - Skin Skin exam: Present: warm, dry, intact Course Course Narrative: Patient presents to emergency department with dyspnea. She is obese and oxygen dependent at baseline. Concern for COPD versus pneumonia. She likely also has a component of sleep apnea. We will evaluate with chest x-ray, EKG, labs and blood gas with attention to PCO2 Vital Signs Temperature 98.2 F 09/21/17 11:44 Pulse Rate 105 09/21/17 11:44 Respiratory Rate 20 09/21/17 11:44 O2 Sat by Pulse Oximetry 98 09/21/17 11:44 Temperature 98.2 F 09/21/17 11:48 Pulse Rate 107 09/21/17 12:33 Respiratory Rate 15 09/21/17 12:33 Blood Pressure 96/52 09/21/17 12:33 O2 Sat by Pulse Oximetry 97 09/21/17 12:33 Oxygen Delivery Oxygen Delivery Bipap Shortness of Breath/Dyspnea - Lab Data Lab results reviewed: Yes I reviewed the patient's lab results. Result diagrams: 09/21/17 11:50 09/21/17 11:42 Lab Results 09/21/17 09/21/17 09/21/17 Range/Units 11:42 11:42 11:49 WBC (4.3-11.1) K/mcL RBC (3.82-4.97) M/mcL Hgb (11.5-15.4) g/dL Hct (35.3-44.9) % MCV (83.0-100.0) fL MCH (28.0-33.3) pg MCHC (31.6-35.5) g/dL RDW (11.5-14.5) % Plt Count (140-400) K/mcL MPV (9.4-12.4) fL Immature Gran % (0-4) % Seg Neutrophils % % Lymphocytes % % Monocytes % % Eosinophils % % Basophils % % Neutrophils # (1.6-8.9) K/mcL Lymphocytes # (0.6-4.6) K/mcL Monocytes # (0.0-1.3) K/mcL Eosinophils # (0.0-0.6) K/mcL Basophils # (0.0-0.2) K/mcL PT 10.9 (9.4-12.1) Seconds INR 1.0 ABG pH 7.38 (7.32-7.45) pH Units ABG pCO2 73 H* (35-45) mmHg ABG pO2 234 H (85-104) mmHg ABG HCO3 43 H (21-27) mEq/L ABG Total CO2 46 H (20-26) mEq/L ABG O2 Saturation 100 H (95-98) % ABG Base Excess 14 H (-2 to 3) mEq/L Gabriel Test Positive O2 Delivery Device NRB Inspired O2 100.0 (1-15=lpm do71-737=%) Sodium 142 (136-145) mEq/L Potassium 3.3 L (3.5-5.1) mEq/L Chloride 92 L (98-107) mEq/L Carbon Dioxide 42 H* (23-29) mEq/L BUN 12 (8-23) mg/dL Creatinine 0.63 (0.60-1.20) mg/dL Est GFR ( Amer) > 60 (> 60) Est GFR (Non-Af Amer) > 60 (> 60) BUN/Creatinine Ratio 19 (6-26) Glucose 223 H (70-105) mg/dL Calculated Osmolality 301 H (280-300) Calcium 10.0 (8.6-10.3) mg/dL Total Bilirubin 0.7 (0.3-1.0) mg/dL Direct Bilirubin 0.3 H (0.0-0.2) mg/dL Indirect Bilirubin 0.4 (0.0-1.2) mg/dL AST 22 (13-39) Units/L ALT 11 (7-52) Units/L Alkaline Phosphatase 120 H (34-104) Units/L Troponin I 0.04 H* (< 0.04) ng/mL B-Natriuretic Peptide (Less than 100) pg/mL Serum Total Protein 5.9 L (6.4-8.9) g/dL Albumin 3.3 L (3.5-5.7) g/dL Globulin 2.6 (2.4-3.5) g/dL Albumin/Globulin Ratio 1.3 (1.1-2.2) 09/21/17 09/21/17 Range/Units 11:50 11:50 WBC 7.1 (4.3-11.1) K/mcL RBC 4.58 (3.82-4.97) M/mcL Hgb 14.7 (11.5-15.4) g/dL Hct 47.6 H (35.3-44.9) % MCV 103.9 H (83.0-100.0) fL MCH 32.1 (28.0-33.3) pg MCHC 30.9 L (31.6-35.5) g/dL RDW 13.8 (11.5-14.5) % Plt Count 308 (140-400) K/mcL MPV 10.0 (9.4-12.4) fL Immature Gran % 0.8 (0-4) % Seg Neutrophils % 65.7 % Lymphocytes % 18.1 % Monocytes % 11.2 % Eosinophils % 3.5 % Basophils % 0.7 % Neutrophils # 4.6 (1.6-8.9) K/mcL Lymphocytes # 1.3 (0.6-4.6) K/mcL Monocytes # 0.8 (0.0-1.3) K/mcL Eosinophils # 0.3 (0.0-0.6) K/mcL Basophils # 0.1 (0.0-0.2) K/mcL PT (9.4-12.1) Seconds INR ABG pH (7.32-7.45) pH Units ABG pCO2 (35-45) mmHg ABG pO2 (85-104) mmHg ABG HCO3 (21-27) mEq/L ABG Total CO2 (20-26) mEq/L ABG O2 Saturation (95-98) % ABG Base Excess (-2 to 3) mEq/L Gabriel Test O2 Delivery Device Inspired O2 (1-15=lpm fi48-870=%) Sodium (136-145) mEq/L Potassium (3.5-5.1) mEq/L Chloride (98-107) mEq/L Carbon Dioxide (23-29) mEq/L BUN (8-23) mg/dL Creatinine (0.60-1.20) mg/dL Est GFR ( Amer) (> 60) Est GFR (Non-Af Amer) (> 60) BUN/Creatinine Ratio (6-26) Glucose (70-105) mg/dL Calculated Osmolality (280-300) Calcium (8.6-10.3) mg/dL Total Bilirubin (0.3-1.0) mg/dL Direct Bilirubin (0.0-0.2) mg/dL Indirect Bilirubin (0.0-1.2) mg/dL AST (13-39) Units/L ALT (7-52) Units/L Alkaline Phosphatase (34-104) Units/L Troponin I (< 0.04) ng/mL B-Natriuretic Peptide 21 (Less than 100) pg/mL Serum Total Protein (6.4-8.9) g/dL Albumin (3.5-5.7) g/dL Globulin (2.4-3.5) g/dL Albumin/Globulin Ratio (1.1-2.2) - Radiology Data Radiology results reviewed: Yes I reviewed the patient's radiology results. - EKG Data EKG attestation: Yes I reviewed and interpreted this EKG. EKG results narrative: Sinus tachycardia rate 106P 1:30 QRS 86 QT/QTC 327/89. No acute ST segment elevation. Baseline artifact present. Critical Care Time Critical Care Time: Yes Total Critical Care Time: 30 Attestation: The high probability of a clinically significant, sudden or life threatening deterioration of the [] system(s) required my full and direct attention, intervention and personal management. The aggregate critical care time was [] minutes. This time is in addition to time spent performing reported procedures but includes the following: [] Data Review and interpretation [] Patient assessment and monitoring of vital signs [] Documentation [] Medication orders and management
[2017-09-21 11:52] LABS: ABG Base Excess 14 mEq/L (-2 to 3); ABG HCO3 43 mEq/L (21-27); ABG Oxygen Saturation 100 % (95-98); ABG PCO2 73 mmHg (35-45); ABG PH 7.38 pH Units (7.32-7.45); ABG PO2 234 mmHg (85-104); ABG TCO2 46 mEq/L (20-26)
[2017-09-21 12:17] LABS: Basophils # 0.1 K/mcL (0.0-0.2); Basophils % 0.7 %; Eosinophils # 0.3 K/mcL (0.0-0.6); Eosinophils % 3.5 %; Hematocrit 47.6 % (35.3-44.9); Hemoglobin 14.7 g/dL (11.5-15.4); Immature Granulocytes % 0.8 % (0-4); Lymphocytes # 1.3 K/mcL (0.6-4.6); Lymphocytes % 18.1 %; Mean Corpuscular HGB Conc 30.9 g/dL (31.6-35.5); Mean Corpuscular Hemoglobin 32.1 pg (28.0-33.3); Mean Corpuscular Volume 103.9 fL (83.0-100.0); Monocytes # 0.8 K/mcL (0.0-1.3); Monocytes % 11.2 %; Neutrophils # 4.6 K/mcL (1.6-8.9); Platelet Count 308 K/mcL (140-400); Red Blood Count 4.58 M/mcL (3.82-4.97); Red Cell Distribution Width 13.8 % (11.5-14.5); Segmented Neutrophils % 65.7 %
[2017-09-21 12:27] LABS: Prothrombin Time 10.9 Seconds (9.4-12.1)
[2017-09-21 12:51] LABS: Alanine Aminotransferase 11 Units/L (7-52); Albumin 3.3 g/dL (3.5-5.7); Albumin/Globulin Ratio 1.3 (1.1-2.2); Alkaline Phosphatase 120 Units/L (34-104); Aspartate Amino Transferase 22 Units/L (13-39); BUN/Creatinine Ratio 19 (6-26); Bilirubin,Direct 0.3 mg/dL (0.0-0.2); Bilirubin,Indirect 0.4 mg/dL (0.0-1.2); Bilirubin,Total 0.7 mg/dL (0.3-1.0); Blood Urea Nitrogen 12 mg/dL (8-23); Carbon Dioxide 42 mEq/L (23-29); Chloride 92 mEq/L (98-107); Globulin 2.6 g/dL (2.4-3.5); Glucose 223 mg/dL (70-105); Osmolality,Calculated 301 (280-300); Potassium 3.3 mEq/L (3.5-5.1); Sodium 142 mEq/L (136-145); Total Protein 5.9 g/dL (6.4-8.9); Troponin I 0.04 ng/mL (< 0.04); eGFR For African Americans > 60 (> 60); eGFR For Non-African Americans > 60 (> 60)
[2017-09-21] MEDS ORDERED: Levofloxacin 500 MG/100 ML 500 MG/100 ML BAG IVPB ONE (12:54)
[2017-09-21] MEDS ORDERED: methylPREDNISolone 125 MG/2 ML VIAL IVP ONE (12:55)
[2017-09-21] MEDS ORDERED: Aspirin 325 MG TABLET PO ONE (12:58)
[2017-09-21] MEDS ORDERED: Naloxone 0.4 MG/ML INJ IVP PRN (13:28)
[2017-09-21] MEDS ORDERED: Acetaminophen 325 MG TABLET PO PRN (13:31)
[2017-09-21] MEDS ORDERED: *HR* Dextrose 50 % in Water (Syg) 50 ML SYRINGE IVP PRN (13:45)
[2017-09-21] MEDS ORDERED: Dextrose Gel 15 GM/37.5 ML TUBE PO PRN ×2 (13:45)
[2017-09-21] MEDS ORDERED: D5% in Water 1,000 ML IVC PRN (13:45)
--- NOTE | 2017-09-21 13:51 | Internal Med History&Physical ---
<DonnaMiller - Last Filed: 09/21/17 17:49> Date of Encounter: 09/21/17 Time of Encounter: 13:00 Internal Medicine - H&P: HPI Chief complaint: SOB/Dyspnea Admitted From: Emergency Dept Plans for Post Hospital Care: Home History of present illness: Ms. Em is a 76 year old female w/PMH of arthritis, atrial fibrillation, uterine and kidney cancer, COPD, CAD, diabetes controlled with insulin, HLD, HTN , previous myocardial infarction in 2017 requiring 2 stents, and renal disease presents from the ED with chief complaint of shortness of breath and dyspnea that began today. Patient's reports patient was extremely short of breath when squad was called. SPO2 in high 60s. Hypoxia improved with O2 via nasal cannula. Patient is previous smoker who smoked one to 2 packs per day and reports quitting 25 years ago. Patient also reports history of falls. Patient denies recent illness, fever, chills, nausea, vomiting, unusual bleeding , changes in vision, cough, abdominal pain, diarrhea, constipation, dizziness, lightheadedness, pre-syncope or syncope. Past Med Surg Social Fam HX - Past Medical History Source: patient, old records reviewed, obtained from family Medical history: arthritis, atrial fibrillation, cancer, COPD, coronary artery disease, diabetes, hyperlipidemia, hypertension, myocardial infarction, renal disease Additional medical history: kidney and uterine cancer, macular degeneration Psychiatric history: anxiety, depression - Past Surgical History Surgical History: angioplasty/stent (x2), appendectomy, cancer surgery (Uterine cancer resulting in total hysterectomy. Renal cancer resulting in partial removal of kidney.), cataract, cholecystectomy, hysterectomy, orthopedic, other , JUAN/BSO Additional surgical history: partial nephrectomy - Social History Smoking Status: Former smoker Packs per day: 1-2 PPD - Reports quitting 25 years ago Smokeless Tobacco Status: No Alcohol use: none Drug use: none Current living situation: Home, With Family Activity Level: Uses cane/walker, Mostly sedentary Recent Out of Country Travel Within the Last 8 Weeks: No Exposure or Possible Exposure to Illness During Travel: No - Family History Father Race: Family Member Ethnicity: Non- Living Status: Age at : 49 Cause of : [place] Hx Family Cardiac Disorders: Yes ([place], CAD) Mother Adopted: No Race: Family Member Ethnicity: Non- Living Status: Age at : 56 Cause of : [place] Hx Family Cardiac Disorders: Yes ([place], CAD) Hx Family Respiratory Disorders: No Hx Family Cancer: No Hx Family GI Disorders: No Hx Family Endocrine Disorder: No Hx Family Neuromuscular Disorders: No Hx Family Neurologic Disorders: No Hx Family HEENT Disorders: Yes Hx Family Autoimmune Disorders: No Brother Race: Family Member Ethnicity: Non- Living Status: Age at : 59 Cause of : [place] Hx Family Cardiac Disorders: Yes ([place], CAD) Sister Race: Family Member Ethnicity: Non- Living Status: Age at : 3 Cause of : Leukemia Hx Family Cancer: Yes (Leukemia) Internal Medicine - H&P: Meds Aspirin Enteric Coated [Aspirin EC] 81 mg PO DAILY #30 tablet.dr 12/20/14 [Rx] Levothyroxine [Synthroid] 175 mcg PO DAILY 01/23/15 [History] Duloxetine HCl 60 mg PO DAILY 04/26/16 [History] Albuterol Sulfate [Albuterol Inhaler] 2 puff IH Q4HR PRN #4 hfa.aer.ad 04/28/16 [Rx] Multivitamin [One Daily Essential] 1 tab PO DAILY 09/23/16 [History] Oxygen 3 l NS CONT 09/23/16 [History] Atorvastatin Calcium [Lipitor] 80 mg PO HS 05/11/17 [History] Metoprolol Succinate [Toprol Xl] 25 mg PO DAILY 05/11/17 [History] Mirabegron [Myrbetriq] 50 mg PO DAILY 05/11/17 [History] Acetaminophen [Tylenol] 650 mg PO Q6HR PRN tablet 05/19/17 [Rx] Docusate [Colace] 100 mg PO BID PRN capsule 05/19/17 [Rx] Nystatin POWDER [Nystop] 1 appl TP BID bottle 05/19/17 [Rx] Polyethylene Glycol 3350 [MiraLAX] 17 gm PO DAILY powd.pack 05/19/17 [Rx] Potassium Chloride 10 meq PO DAILY #30 tab.er.prt 06/02/17 [Rx] Furosemide [Lasix] 20 mg PO DAILY 09/21/17 [History] Insulin DETEMIR [Levemir] 30 unit SQ BID 09/21/17 [History] Insulin LISPRO [HumaLOG] 0 units SQ TIDAC PRN 09/21/17 [History] Lisinopril [Zestril] 20 mg PO DAILY 09/21/17 [History] 3 Allergy/AdvReac Type Severity Reaction Status Date / Time hydrocodone [From Vicodin] AdvReac Nausea Verified 09/22/16 17:03 metformin [From Glucophage] AdvReac Diarrhea Verified 01/23/15 09:38 All Systems PM: A 10-system review of systems was performed and is negative for pertinent findings except as documented above in the HPI. - Constitutional Constitutional: as per HPI, falls, weakness (Patient reports weakness in bilateral LEs), no chills, no fever(s), no night sweats - EENT Eyes: no change in vision, no discharge, no pain, no photophobia Ears: no ear discharge, no ear pain, no tinnitus Nose, mouth and throat: no dysphagia, no nasal discharge, no neck pain, no sore throat - Breasts Breasts: as per HPI - Cardiovascular Cardiovascular ROS IM: as per HPI, dyspnea, dyspnea on exertion, edema, irregular heart rhythm (Hx of Afib), no chest pain, no diaphoresis, no lightheadedness, no palpitations, no syncope - Respiratory Respiratory: as per HPI, dyspnea, dyspnea on exertion, snoring, no cough, no wheezing, no excessive phlegm production - Gastrointestinal Gastrointestinal: no abdominal pain, no diarrhea, no hematemesis, no hematochezia, no melena, no nausea, no vomiting - Genitourinary Genitourinary: no change in urinary stream, no dysuria, no flank pain, no hematuria Menstruation: as per HPI, post hysterectomy (Total) - Musculoskeletal Musculoskeletal ROS IM: no numbness, no tingling - Integumentary Integumentary IM: no rash, no unusual bruising - Neurological Neurological ROS: as per HPI, frequent falls, no confusion, no convulsions, no focal weakness, no numbness, no tingling, no tremor(s) - Psychiatric Psychiatric: as per HPI, anxiety, depression - Endocrine Endocrine IM: as per HPI - Hematologic/Lymphatic Hematologic/Lymphatic: no easy bruising - Allergic/Immunologic Allergic/Immunologic: as per HPI - Constitutional Vitals: Temp Pulse Resp BP Pulse Ox 98.2 F 103 14 113/49 96 09/21/17 11:48 09/21/17 13:37 09/21/17 13:37 09/21/17 13:37 09/21/17 13:37 General appearance: Present: cooperative, A&O X 3, morbidly obese, pleasant, severe distress (Respiratory), answers questions appropriately - Head Head exam: Present: atraumatic, normocephalic - Eye Eye exam: Present: PERRL, conjuntiva pink, sclera anicteric Pupils: Present: PERRL - ENT ENT exam: Present: normal exam, normal external ear exam - Neck Neck exam general surgery: Present: supple, trachea midline. Absent: lymphadenopathy - Respiratory Respiratory exam: Present: accessory muscle use, decreased breath sounds, respiratory distress. Absent: rales, rhonchi, wheezes - Cardiovascular Cardiovascular exam: Present: irregular rhythm - GI/Abdominal GI/Abdominal exam: Present: normal bowel sounds, soft, no peritoneal signs. Absent: distended, tenderness - Rectal Rectal exam: Present: deferred - Additional comments: exam deferred. - Extremities Exam Extremities exam: Present: pedal edema, warm, radial pulses palpable and symmetrical. Absent: calf tenderness, cyanotic - Back Exam Back exam: Present: normal inspection - Neurological Exam Neurological exam: Present: alert, CN II-XII intact, oriented X3, no focal deficits. Absent: pronater drift, facial droop, speech deficit - Psychiatric Psychiatric exam: Present: normal affect, normal mood - Skin Skin exam: Present: dry, intact Internal Med - H&P Results - Labs CBC & Chem 7: 09/21/17 11:50 09/21/17 11:42 - EKG Data EKG shows normal: sinus rhythm Rate: tachycardia - EKG Data Prior EKG available for review: yes EKG comments: 09/21/17 13:56 EKG dated 05/18/17 shows atrial fibrillation with RVR, low QRS voltage in extremity leads, and nonspecific ST-T changes. EKG dated 09/21/17 shows sinus tachycardia with frequent supraventricular premature complexes, nonspecific T-wave abnormality, and abnormal rhythm ECG. - Diagnostic Studies Chest x-ray Additional comments: Impressions Chest X-Ray 09/21/17 11:42 IMPRESSION: Elevated right hemidiaphragm with dependent right basilar atelectasis. D/ / Max Jc MD / Max Jc MD Interpreting Provider: Max Jc MD - Assessment and plan (1) COPD exacerbation Current Visit: Yes Status: Acute Assessment and plan: Acute exacerbation of COPD. SpO2 in low 60's on admission. Placed on BiPAP w/ SpO2 improvement to low 90's. Will continue BiPAP. CPAP HS. Pt. placed on IVPB levaquin in ED for bronchitis coverage. Received 125 mg IVP methylprednisolone in ED. Will continue 80 mg IVP methylprednisolone every 6 hour. ABG shows pH of 7.38, PCO2 73, PO2 of 234, HCO3 of 43, total CO2 46, ABG O2 saturation 100, and ABG base excess of 14. Continuous cardiac telemetry. Falls/safety precautions and up with assist. Monitor pt. and VS. Pt. discussed w/Dr. Huynh who agrees w/plan of care. Pt. is high risk for further morbidity and respiratory failure d/t current hypoxemia and COPD exacerbation requiring IVP steroids and IVPB antibiotics, hx of previous COPD exacerbations and CAD, morbid obesity, previous tobacco use, and risk factors. Inpatient. (2) Hypoxemia Current Visit: Yes Status: Acute Assessment and plan: Acute on chronic hypoxemia. SpO2 in high 60's when squad picked pt. up. Pt. placed on BiPAP in ED w/improvement in SpO2 to low 90's. ABG showed pH of 7.38, PCO2 73, PO2 of 234, HCO3 of 43, total CO2 46, ABG O2 saturation 100, and ABG base excess of 14. Pt. reports she passed sleep study previously but was not placed on BiPAP d/t results being lost. SW consult ordered to determine need for home BiPAP. Pt. reports using CPAP previously so CPAP HS ordered. Continuous cardiac telemetry. Falls/safety precautions, up with assist. (3) Elevated troponin Current Visit: Yes Status: Acute Assessment and plan: Acutely elevated troponin of 0.04 most likely d/t demans ischemia from acute exacerbation of COPD. Will trend. (4) Hypokalemia Current Visit: Yes Status: Acute Assessment and plan: Acute hypokalemia w/potassium of 3.3 on admission. 40 mEq PO potassium ordered once. Potassium level @ 00:00. Will continue pts. PO 10 mEq potassium daily. Monitor pt. and f/u labs. Continuous cardiac telemetry. (5) Choking Current Visit: Yes Status: Chronic Assessment and plan: Pt. 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 Advanced mechanically altered diet ordered. Aspiration precautions ordered. Qualifiers: Encounter type: initial encounter Qualified Code(s): T17.308A - Unspecified foreign body in larynx causing other injury, initial encounter (6) HTN (hypertension) Current Visit: Yes Status: Chronic Assessment and plan: Hx of chronic HTN. Monitor pt. and VS. Continue patient's lisinopril and metoprolol. Qualifiers: Hypertension type: essential hypertension Qualified Code(s): I10 - Essential (primary) hypertension (7) HLD (hyperlipidemia) Current Visit: Yes Status: Chronic Assessment and plan: Hx of chronic HLD. Lipid panel in a.m. labs. Continue pts. Lipitor. Qualifiers: Hyperlipidemia type: pure hypercholesterolemia Qualified Code(s): E78.00 - Pure hypercholesterolemia, unspecified; E78.0 - Pure hypercholesterolemia (8) Previous myocardial infarction older than 8 weeks Current Visit: Yes Status: Chronic Assessment and plan: Hx of previous MN >8 weeks old. Troponin currently 0.04 on admission, most likely d/t demand ischemia from hypoxemia. Continuous cardiac telemetry. Will trend troponin. Continue pts. Lipitor, lisinopril, metoprolol, and aspirin. (9) Atrial fibrillation Current Visit: Yes Status: Chronic Assessment and plan: Hx of chronic atrial fibrillation not on anticoagulation. Pt. reports taking aspirin daily. Will continue PO aspirin and add SQ heparin for DVT prophylaxis. Qualifiers: Atrial fibrillation type: chronic Qualified Code(s): I48.2 - Chronic atrial fibrillation (10) CAD (coronary artery disease) Current Visit: Yes Status: Chronic Assessment and plan: Hx of CAD. Previous [place] w/stents x2. Continuous cardiac telemetry. Echocardiogram dated shows technically challenging imaging due to body habitus, LVEF of 55% with Definity use. Indeterminate diastolic function. RV is not well visualized. Valves were not well visualized on this study. Unable to estimated RVSP. EKG today shows sinus tachycardia with frequent supraventricular premature complexes, nonspecific T-wave abnormality. Continue patient's lisinopril and metoprolol. Qualifiers: Coronary Disease-Associated Artery/Lesion type: [place] artery [place] vs. transplanted heart: [place] heart Associated angina: without angina Qualified Code(s): I25.10 - Atherosclerotic heart disease of [place] coronary artery without angina pectoris (11) Diabetes Current Visit: Yes Status: Chronic Assessment and plan: Hx of chronic diabetes controlled by insulin. BG checks ACHS. A1c in a.m. labs. Continue patient's twice a day insulin and add low-dose correction insulin sliding scale with hypoglycemic protocol. Qualifiers: Diabetes mellitus type: type 2 Diabetes mellitus snf insulin use: with superintendent terminal use Diabetes mellitus complication status: with neurologic complications Diabetes mellitus complication detail: with polyneuropathy Qualified Code(s): E11.42 - Type 2 diabetes mellitus with diabetic polyneuropathy; Z79.4 - senior care (current) use of insulin (12) Hypothyroidism Current Visit: Yes Status: Chronic Assessment and plan: Hx of hypothyroidism. TSH and Free T4 ordered for a.m. labs. Continue pts. Synthroid. Qualifiers: Hypothyroidism type: acquired Qualified Code(s): E03.9 - Hypothyroidism, unspecified (13) Morbid obesity Current Visit: Yes Status: Chronic Assessment and plan: Hx of morbid obesity. BMI currently 53.2 and 158.757 kg. (14) MALLORY (obstructive sleep apnea) Current Visit: Yes Status: Chronic Assessment and plan: Hx of MALLORY. Patient has been reports previous 4 hour sleep study and qualification for BiPAP, however report that study results were lost. Evaluate patient for social work for qualification of home BiPAP. Pt. reports she is supposed to use CPAP @ night. (15) DVT prophylaxis Current Visit: Yes Status: Acute Assessment and plan: Heparin 5,000 units SQ Q8 for DVT prophylaxis. Monitor pt. for signs of bleeding. (16) Hx of fall Current Visit: Yes Status: Chronic Assessment and plan: Hx of falls. Pt. reports bilateral weakness in LEs. Falls/safety precautions and up with assist. PT/OT consults ordered. - Time Spent With Patient Total time spent is greater than 50% in coordination of care (as documented) at patient's floor/unit and/or counseling patient: Greater than 35 minutes <Laura Huynh - Last Filed: 09/21/17 21:34> Date of Encounter: 09/21/17 Internal Medicine - H&P: HPI History of present illness: Ms. Em is a 76 year old female All Systems PM: A 10-system review of systems was performed and is negative for pertinent findings except as documented above in the HPI. - Constitutional Vitals: Temp Pulse Resp BP Pulse Ox 97.9 F 105 18 134/87 98 09/21/17 14:30 09/21/17 21:24 09/21/17 21:24 09/21/17 14:30 09/21/17 21:24 Internal Med - H&P Results - Labs CBC & Chem 7: 09/21/17 11:50 09/21/17 11:42 Labs: Cardiac Enzymes 09/21/17 Range/Units 18:22 Troponin I 0.04 H* (< 0.04) ng/mL - Attending Attestation Seen and assessed. Agree with plan per [facility] for COPD exacerbation. Continue plan of care - Assessment and plan (1) Diabetes Current Visit: Yes Status: Chronic Qualifiers: Diabetes mellitus type: type 2 Diabetes mellitus superintendent terminal insulin use: with superintendent terminal use Diabetes mellitus complication status: with neurologic complications Diabetes mellitus complication detail: with polyneuropathy Qualified Code(s): E11.42 - Type 2 diabetes mellitus with diabetic polyneuropathy; Z79.4 - [place] (current) use of insulin (2) Hypoxemia Current Visit: Yes Status: Acute (3) CAD (coronary artery disease) Current Visit: Yes Status: Chronic Qualifiers: Coronary Disease-Associated Artery/Lesion type: [place] artery [place] vs. transplanted heart: [place] heart Associated angina: without angina Qualified Code(s): I25.10 - Atherosclerotic heart disease of [place] coronary artery without angina pectoris (4) MALLORY (obstructive sleep apnea) Current Visit: Yes Status: Chronic (5) Morbid obesity Current Visit: Yes Status: Chronic (6) Hypothyroidism Current Visit: Yes Status: Chronic Qualifiers: Hypothyroidism type: acquired Qualified Code(s): E03.9 - Hypothyroidism, unspecified (7) COPD exacerbation Current Visit: Yes Status: Acute (8) Atrial fibrillation Current Visit: Yes Status: Chronic Qualifiers: Atrial fibrillation type: chronic Qualified Code(s): I48.2 - Chronic atrial fibrillation (9) Elevated troponin Current Visit: Yes Status: Acute (10) HTN (hypertension) Current Visit: Yes Status: Chronic Qualifiers: Hypertension type: essential hypertension Qualified Code(s): I10 - Essential (primary) hypertension (11) HLD (hyperlipidemia) Current Visit: Yes Status: Chronic Qualifiers: Hyperlipidemia type: pure hypercholesterolemia Qualified Code(s): E78.00 - Pure hypercholesterolemia, unspecified; E78.0 - Pure hypercholesterolemia (12) Previous myocardial infarction older than 8 weeks Current Visit: Yes Status: Chronic (13) DVT prophylaxis Current Visit: Yes Status: Acute (14) Hypokalemia Current Visit: Yes Status: Acute (15) Choking Current Visit: Yes Status: Chronic Qualifiers: Encounter type: initial encounter Qualified Code(s): T17.308A - Unspecified foreign body in larynx causing other injury, initial encounter (16) Hx of fall Current Visit: Yes Status: Chronic - Time Spent With Patient Total time spent is greater than 50% in coordination of care (as documented) at patient's floor/unit and/or counseling patient:
[2017-09-21] MEDS: Ipratropium/Albuterol Neb 3 ML IH SCH ×2 (16:16→21:19)
[2017-09-21] MEDS: Insulin LISPRO 300 UNITS/3 ML VIAL SQ SCH (18:29)
[2017-09-21] MEDS: *HR* Heparin 5,000 UNIT/ML VIAL SQ SCH (18:30)
[2017-09-21] MEDS: methylPREDNISolone 125 MG/2 ML VIAL IVP SCH (18:32)
--- NOTE | 2017-09-21 20:02 | Electrocardiograph Report ---
[address] [address] Test Date: 2017-09-21 Pat Name: Deanna Em Department: 103 Room: 2NE35 Gender: F Bobbin Dumper: [facility] : 1940 Requested By: Remington Schwab Order Number: [id number] Reading MD: Mark Anthony Newman Measurements Intervals [place] Rate: 106 P: 48 ID: [id number] QRS: 20 QRSD: 86 T: 70 QT: 327 QTc: 389 Interpretive Statements SINUS TACHYCARDIA WITH FREQUENT SUPRAVENTRICULAR PREMATURE COMPLEXES Electronically Signed On 09-21-2017 20:01:18 EDT by Mark Anthony Newman
[2017-09-21] MEDS: Melatonin 3 MG TABLET PO PRN (20:19)
[2017-09-21] MEDS: traMADol 50 MG TABLET PO PRN (20:20)
[2017-09-21] MEDS ORDERED: Insulin LISPRO 300 UNITS/3 ML VIAL SQ SCH (21:00)
[2017-09-21] MEDS: Nystatin POWDER 30 GM BOTTLE TP SCH (21:45)
[2017-09-21] MEDS: Insulin DETEMIR 100 UNIT/ML X5UNITS SQ SCH (23:07)
[2017-09-22] MEDS: *HR* Heparin 5,000 UNIT/ML VIAL SQ SCH ×3 (00:36→18:03)
[2017-09-22] MEDS: methylPREDNISolone 125 MG/2 ML VIAL IVP SCH ×4 (00:36→18:03)
[2017-09-22 00:59] LABS: Basophils % 0.3 %; Hematocrit 41.6 % (35.3-44.9); Hemoglobin 13.2 g/dL (11.5-15.4); Immature Granulocytes % 1.1 % (0-4); Lymphocytes # 0.5 K/mcL (0.6-4.6); Lymphocytes % 8.2 %; Mean Corpuscular HGB Conc 31.7 g/dL (31.6-35.5); Mean Corpuscular Hemoglobin 31.4 pg (28.0-33.3); Mean Platelet Volume 10.9 fL (9.4-12.4); Monocytes # 0.1 K/mcL (0.0-1.3); Monocytes % 1.1 %; Platelet Count 196 K/mcL (140-400); Red Cell Distribution Width 13.7 % (11.5-14.5); Segmented Neutrophils % 89.3 %
[2017-09-22 01:11] LABS: Alanine Aminotransferase 10 Units/L (7-52); Albumin 3.1 g/dL (3.5-5.7); Albumin/Globulin Ratio 1.2 (1.1-2.2); Alkaline Phosphatase 110 Units/L (34-104); Aspartate Amino Transferase 19 Units/L (13-39); BUN/Creatinine Ratio 21 (6-26); Bilirubin,Total 0.6 mg/dL (0.3-1.0); Blood Urea Nitrogen 16 mg/dL (8-23); Calcium 9.8 mg/dL (8.6-10.3); Carbon Dioxide 35 mEq/L (23-29); Chloride 92 mEq/L (98-107); Chol/HDL Ratio 4.8 (0-4.9); Cholesterol 196 mg/dL (< 200); Globulin 2.6 g/dL (2.4-3.5); Glucose 454 mg/dL (70-105); HDL Cholesterol 41 mg/dL (40-59); LDL Cholesterol,Calculated 127 mg/dL (0-99); Magnesium 1.7 mg/dL (1.6-2.6); Osmolality,Calculated 307 (280-300); Phosphorous 1.9 mg/dL (2.7-4.5); Potassium 4.1 mEq/L (3.5-5.1); Sodium 138 mEq/L (136-145); Total Protein 5.7 g/dL (6.4-8.9); Triglycerides 139 mg/dL (< 150); eGFR For African Americans > 60 (> 60); eGFR For Non-African Americans > 60 (> 60)
[2017-09-22 01:28] LABS: Thyroid Stimulating Hormone 3.712 mcIU/mL (0.340-5.600)
[2017-09-22 01:29] LABS: Troponin I 0.04 ng/mL (< 0.04)
[2017-09-22 02:56] LABS: Neutrophils # 5.7 K/mcL (1.6-8.9)
[2017-09-22] MEDS: Ipratropium/Albuterol Neb 3 ML IH SCH ×4 (03:58→21:52)
[2017-09-22 05:25] LABS: Prothrombin Time 11.7 Seconds (9.4-12.1)
[2017-09-22] MEDS: Insulin LISPRO 300 UNITS/3 ML VIAL SQ SCH ×4 (07:55→21:34)
[2017-09-22] MEDS: Multivit/Ca/Min/Fe/FA 1 TAB TABLET PO SCH (07:56)
[2017-09-22] MEDS: Aspirin Enteric Coated 81 MG Tablet PO SCH (07:56)
[2017-09-22] MEDS: Furosemide 20 MG TABLET PO SCH (07:56)
[2017-09-22] MEDS: traMADol 50 MG TABLET PO PRN ×2 (07:57→18:03)
[2017-09-22] MEDS: Metoprolol XL (24 HR) Succ 25 MG TAB.ER.24H PO SCH (07:57)
[2017-09-22] MEDS: Lisinopril 20 MG TABLET PO SCH (07:57)
[2017-09-22] MEDS: Levofloxacin 750 MG/150 ML 750 MG/150 ML BAG IVPB SCH (07:57)
[2017-09-22] MEDS: (Mirabegron [Myrbetriq] 50 MG) PO SCH (07:57)
[2017-09-22] MEDS: Insulin DETEMIR 100 UNIT/ML X5UNITS SQ SCH ×2 (08:01→21:35)
--- NOTE | 2017-09-22 08:10 | Internal Med Progress Note ---
<Jered Lemus - Last Filed: 09/22/17 17:34> Date of Encounter: 09/22/17 Time of Encounter: 09:55 - Assessment and plan (1) COPD exacerbation Current Visit: Yes Status: Acute Assessment and plan: Improving with high flow O2. Continue to monitor with repeat ABG in a.m. (2) Hypoxemia Current Visit: Yes Status: Resolved Assessment and plan: O2 sat in mid 90s with 5 lpm O2 via nasal cannula. (3) Atrial fibrillation Current Visit: Yes Status: Chronic Assessment and plan: Continue home medication of metoprolol, and monitor rate. Qualifiers: Atrial fibrillation type: chronic Qualified Code(s): I48.2 - Chronic atrial fibrillation (4) Elevated troponin Current Visit: Yes Status: Acute Assessment and plan: Likely due to demand ischemia from COPD exacerbation. Continue to trend troponins. 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 transplanted heart: [place] heart Associated angina: without angina Qualified Code(s): I25.10 - Atherosclerotic heart disease of [place] coronary artery without angina pectoris (7) MALLORY (obstructive sleep apnea) Current Visit: Yes Status: Chronic Assessment and plan: Evaluate for BiPAP qualification (8) Morbid obesity Current Visit: Yes Status: Chronic (9) Hypothyroidism Current Visit: Yes Status: Chronic Assessment and plan: Continue home dose Synthroid Qualifiers: Hypothyroidism type: acquired Qualified Code(s): E03.9 - Hypothyroidism, unspecified (10) HTN (hypertension) Current Visit: Yes Status: Chronic Assessment and plan: Continue to monitor Continue home dose metoprolol succinate and lisinopril Qualifiers: Hypertension type: essential hypertension Qualified Code(s): I10 - Essential (primary) hypertension (11) HLD (hyperlipidemia) Current Visit: Yes Status: Chronic Assessment and plan: Continue home dose Lipitor Qualifiers: Hyperlipidemia type: pure hypercholesterolemia Qualified Code(s): E78.00 - Pure hypercholesterolemia, unspecified; E78.0 - Pure hypercholesterolemia (12) DVT prophylaxis Current Visit: Yes Status: Acute (13) Hypokalemia Current Visit: Yes Status: Resolved (14) Choking Current Visit: Yes Status: Chronic Qualifiers: Encounter type: initial encounter Qualified Code(s): T17.308A - Unspecified foreign body in larynx causing other injury, initial encounter (15) Hx of fall Current Visit: Yes Status: Chronic (16) Abdominal pain Current Visit: Yes Status: Acute Assessment and plan: CT with IV and oral contrast Check lipase Qualifiers: Abdominal location: right lower quadrant Qualified Code(s): R10.31 - Right lower quadrant pain - Time Spent With Patient Total time spent is greater than 50% in coordination of care (as documented) at patient's floor/unit and/or counseling patient: - Subjective Interval history: Mrs. Em is a 76-year-old female who was admitted for shortness of breath and COPD exacerbation. She has a history of arthritis, atrial fibrillation, uterine and kidney cancer, CAD, diabetes, HLD, hypertension, [place] in 2017 with 2 stents, and renal disease. 09/22: No acute events overnight. Patient is sitting up in bed with evidence of mild labored breathing. Patient complains of still feeling short of breath, however it is improved since yesterday. Patient complains of some chest tightness, but denies any chest pain. Patient also complains of lower left abdominal pain and nausea, but denies any vomiting. Denies any increasing cough , or sputum production. No difficulty urinating, blood in stool or urine, or edema in extremities. - Constitutional Vitals: Temp Pulse Resp BP Pulse Ox 98 F 99 16 116/79 95 09/22/17 07:36 09/22/17 07:36 09/22/17 07:36 09/22/17 07:36 09/22/17 07:36 General appearance: Present: cooperative, A&O X 3, morbidly obese, pleasant, severe distress (Respiratory), answers questions appropriately Exam: Head: Atraumatic, normocephalic Eyes: PERRL, EOMI, conjunctiva pink, sclera anicteric Respiratory: Clear to auscultation bilaterally, with decreased air movement, labored breathing, and accessory muscle use. No wheezes, rales, or rhonchi noted. Heart: Irregular rhythm. No murmur, gallop, clicks or rubs noted. GI: Abdomen soft, nontender, distended, with normoactive bowel sounds. Extremities: Warm, pulses palpable and symmetrical. No cyanosis or edema noted. Neuro: Alert and oriented 3, no focal deficits, no speech difficulty. Skin: Warm, dry, intact. Internal Medicine: Result - Labs CBC & Chem 7: 09/22/17 00:34 09/22/17 00:34 Labs: Short CBC 09/22/17 Range/Units 00:34 WBC 6.4 (4.3-11.1) K/mcL Hgb 13.2 D (11.5-15.4) g/dL Hct 41.6 (35.3-44.9) % Plt Count 196 (140-400) K/mcL Neutrophils # 5.7 (1.6-8.9) K/mcL BMP 09/22/17 09/22/17 00:34 00:34 Sodium 138 Potassium 4.1 4.1 Chloride 92 L Carbon Dioxide 35 H BUN 16 Creatinine 0.75 Glucose 454 H Calcium 9.8 Cardiac Enzymes 09/21/17 09/22/17 Range/Units 18:22 00:34 Troponin I 0.04 H* 0.04 H* (< 0.04) ng/mL Liver Function 09/22/17 Range/Units 00:34 Total Bilirubin 0.6 (0.3-1.0) mg/dL AST 19 (13-39) Units/L ALT 10 (7-52) Units/L Alkaline Phosphatase 110 H (34-104) Units/L Albumin 3.1 L (3.5-5.7) g/dL - ABG Interpretation ABG results: ABG ABG pH 7.38 pH Units (7.32-7.45) 09/21/17 11:49 ABG pCO2 73 mmHg (35-45) H* 09/21/17 11:49 ABG pO2 234 mmHg (85-104) H 09/21/17 11:49 ABG O2 Saturation 100 % (95-98) H 09/21/17 11:49 PT/INR, D-dimer PT 11.7 Seconds (9.4-12.1) 09/22/17 04:36 Consult Discharge Plan - Plan Referrals: Corinne Mullins, CERTIFIED FIRE INVESTIGATOR [Primary Care Provider] - <Kwabena Shaw - Last Filed: 09/22/17 18:07> Date of Encounter: 09/22/17 - Assessment and plan (1) Acute and chronic respiratory failure Current Visit: No Status: Acute Qualifiers: Respiratory failure complication: hypoxia and hypercapnia Qualified Code(s) : J96.21 - Acute and chronic respiratory failure with hypoxia; J96.22 - Acute and chronic respiratory failure with hypercapnia (2) COPD exacerbation Current Visit: Yes Status: Acute (3) Diabetes Current Visit: Yes Status: Chronic Qualifiers: Diabetes mellitus type: type 2 Diabetes mellitus usp insulin use: with custom ski maker use Diabetes mellitus complication status: with neurologic complications Diabetes mellitus complication detail: with polyneuropathy Qualified Code(s): E11.42 - Type 2 diabetes mellitus with diabetic polyneuropathy; 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 transplanted heart: [place] heart Associated angina: without angina Qualified Code(s): I25.10 - Atherosclerotic heart disease of [place] coronary artery without angina pectoris (6) MALLORY (obstructive sleep apnea) Current Visit: Yes Status: Chronic (7) Morbid obesity Current Visit: Yes Status: Chronic (8) Hypothyroidism Current Visit: Yes Status: Chronic Qualifiers: Hypothyroidism type: acquired Qualified Code(s): E03.9 - Hypothyroidism, unspecified (9) Atrial fibrillation Current Visit: Yes Status: Chronic Qualifiers: Atrial fibrillation type: chronic Qualified Code(s): I48.2 - Chronic atrial fibrillation (10) Elevated troponin Current Visit: Yes Status: Acute (11) HTN (hypertension) Current Visit: Yes Status: Chronic Qualifiers: Hypertension type: essential hypertension Qualified Code(s): I10 - Essential (primary) hypertension (12) HLD (hyperlipidemia) Current Visit: Yes Status: Chronic Qualifiers: Hyperlipidemia type: pure hypercholesterolemia Qualified Code(s): E78.00 - Pure hypercholesterolemia, unspecified; E78.0 - Pure hypercholesterolemia (13) DVT prophylaxis Current Visit: Yes Status: Acute (14) Hypokalemia Current Visit: Yes Status: Resolved (15) Choking Current Visit: Yes Status: Chronic Qualifiers: Encounter type: initial encounter Qualified Code(s): T17.308A - Unspecified foreign body in larynx causing other injury, initial encounter (16) Hx of fall Current Visit: Yes Status: Chronic (17) Abdominal pain Current Visit: Yes Status: Acute Qualifiers: Abdominal location: right lower quadrant Qualified Code(s): R10.31 - Right lower quadrant pain - Time Spent With Patient Total time spent is greater than 50% in coordination of care (as documented) at patient's floor/unit and/or counseling patient: - Constitutional Vitals: Temp Pulse Resp BP Pulse Ox 98 F 105 16 122/83 94 09/22/17 16:24 09/22/17 16:24 09/22/17 16:24 09/22/17 16:24 09/22/17 16:24 Internal Medicine: Result - Labs CBC & Chem 7: 09/22/17 00:34 09/22/17 00:34 Labs: Short CBC 09/22/17 Range/Units 00:34 WBC 6.4 (4.3-11.1) K/mcL Hgb 13.2 D (11.5-15.4) g/dL Hct 41.6 (35.3-44.9) % Plt Count 196 (140-400) K/mcL Neutrophils # 5.7 (1.6-8.9) K/mcL BMP 09/22/17 09/22/17 00:34 00:34 Sodium 138 Potassium 4.1 4.1 Chloride 92 L Carbon Dioxide 35 H BUN 16 Creatinine 0.75 Glucose 454 H Calcium 9.8 Cardiac Enzymes 09/21/17 09/22/17 Range/Units 18:22 00:34 Troponin I 0.04 H* 0.04 H* (< 0.04) ng/mL Liver Function 09/22/17 Range/Units 00:34 Total Bilirubin 0.6 (0.3-1.0) mg/dL AST 19 (13-39) Units/L ALT 10 (7-52) Units/L Alkaline Phosphatase 110 H (34-104) Units/L Albumin 3.1 L (3.5-5.7) g/dL - ABG Interpretation ABG results: ABG ABG pH 7.38 pH Units (7.32-7.45) 09/21/17 11:49 ABG pCO2 73 mmHg (35-45) H* 09/21/17 11:49 ABG pO2 234 mmHg (85-104) H 09/21/17 11:49 ABG O2 Saturation 100 % (95-98) H 09/21/17 11:49 PT/INR, D-dimer PT 11.7 Seconds (9.4-12.1) 09/22/17 04:36 - Impressions Impressions Abdomen/Pelvis CT 09/22/17 16:30 IMPRESSION: 1. No acute findings within the abdomen or pelvis. No evidence of bowel obstruction or acute inflammatory changes. Previous appendectomy. 2. Bilateral nonobstructive nephrolithiasis. 3. Severe hepatic steatosis, most prevalent in the left lobe of the liver. 4. Bilateral lower lobe atelectasis, right greater than left. 5. Previous cholecystectomy, appendectomy and hysterectomy. 6. Indeterminate 1.7 cm adrenal nodule, increased in size from the comparison study. Assuming no history of malignancy, 1 year follow-up CT using adrenal protocol is recommended. 7. Bilateral renal lesions most consistent with cysts. Indeterminate right renal lesion measuring 3.3 cm, increased compared to the previous CT. This can be followed on adrenal imaging in 1 years time. D/ / 09/22/2017 17:22:02 Max Jc MD / kandis Interpreting Provider: Max Jc MD - Attending Attestation I examined this patient and my medical decision-making was reviewed with the Resident Physician on 09/22/17. I agree with the documented findings, disposition and treatment plan as described except to the extent set forth below. Ms Em is currently admitted for acute exac COPD. She has had slow improvement. She remains moderate to high risk due to potential for worsening clinical status. Ms Em is feeling a little better today. She still has some dyspnea. She has some abdominal pain and nausea as well. no fever or chills. Some cough. Exam alert Mild distress Mucus membranes dry Heart distant Lungs diminished Abd soft - no peritoneal signs. IP 1. COPD 2. Obesity Further diagnoses and plan as above.
[2017-09-22 08:15] LABS: Estimated Average Glucose 143 mg/dl; Hemoglobin A1C 6.6 %
[2017-09-22] MEDS: Nystatin POWDER 30 GM BOTTLE TP SCH ×2 (12:15→21:35)
[2017-09-22] MEDS ORDERED: Isovue-370 500 ML INFUS..BTL IV ONE (14:05)
[2017-09-22] MEDS ORDERED: Insulin LISPRO 300 UNITS/3 ML VIAL SQ STA (17:41)
[2017-09-22] MEDS: Melatonin 3 MG TABLET PO PRN (21:34)
[2017-09-23] MEDS: methylPREDNISolone 125 MG/2 ML VIAL IVP SCH ×3 (00:06→16:54)
[2017-09-23] MEDS: *HR* Heparin 5,000 UNIT/ML VIAL SQ SCH ×3 (00:06→16:53)
[2017-09-23] MEDS: Ipratropium/Albuterol Neb 3 ML IH SCH ×4 (04:39→22:40)
[2017-09-23 05:18] LABS: Basophils % 0.2 %; Hematocrit 39.9 % (35.3-44.9); Hemoglobin 12.9 g/dL (11.5-15.4); Immature Granulocytes % 1.3 % (0-4); Lymphocytes # 0.8 K/mcL (0.6-4.6); Lymphocytes % 4.7 %; Mean Corpuscular HGB Conc 32.3 g/dL (31.6-35.5); Mean Corpuscular Hemoglobin 32.2 pg (28.0-33.3); Mean Corpuscular Volume 99.5 fL (83.0-100.0); Mean Platelet Volume 10.5 fL (9.4-12.4); Monocytes # 0.7 K/mcL (0.0-1.3); Monocytes % 3.9 %; Neutrophils # 15.1 K/mcL (1.6-8.9); Platelet Count 281 K/mcL (140-400); Red Blood Count 4.01 M/mcL (3.82-4.97); Red Cell Distribution Width 13.4 % (11.5-14.5); Segmented Neutrophils % 89.9 %
[2017-09-23 05:37] LABS: ABG Base Excess 14 mEq/L (-2 to 3); ABG HCO3 41 mEq/L (21-27); ABG Oxygen Saturation 88 % (95-98); ABG PCO2 61 mmHg (35-45); ABG PH 7.44 pH Units (7.32-7.45); ABG PO2 55 mmHg (85-104); ABG TCO2 43 mEq/L (20-26)
[2017-09-23 05:42] LABS: Alanine Aminotransferase 10 Units/L (7-52); Albumin 3.1 g/dL (3.5-5.7); Albumin/Globulin Ratio 1.3 (1.1-2.2); Alkaline Phosphatase 90 Units/L (34-104); Aspartate Amino Transferase 17 Units/L (13-39); BUN/Creatinine Ratio 28 (6-26); Bilirubin,Total 0.4 mg/dL (0.3-1.0); Blood Urea Nitrogen 24 mg/dL (8-23); Calcium 9.4 mg/dL (8.6-10.3); Carbon Dioxide 34 mEq/L (23-29); Chloride 92 mEq/L (98-107); Globulin 2.3 g/dL (2.4-3.5); Glucose 428 mg/dL (70-105); Osmolality,Calculated 300 (280-300); Potassium 4.5 mEq/L (3.5-5.1); Sodium 134 mEq/L (136-145); Total Protein 5.4 g/dL (6.4-8.9); eGFR For African Americans > 60 (> 60); eGFR For Non-African Americans > 60 (> 60)
[2017-09-23] MEDS: Aspirin Enteric Coated 81 MG Tablet PO SCH (07:53)
[2017-09-23] MEDS: traMADol 50 MG TABLET PO PRN (07:53)
[2017-09-23] MEDS: Multivit/Ca/Min/Fe/FA 1 TAB TABLET PO SCH (07:53)
[2017-09-23] MEDS: Furosemide 20 MG TABLET PO SCH (07:53)
[2017-09-23] MEDS: Levofloxacin 750 MG/150 ML 750 MG/150 ML BAG IVPB SCH (07:53)
[2017-09-23] MEDS: Metoprolol XL (24 HR) Succ 25 MG TAB.ER.24H PO SCH (07:53)
[2017-09-23] MEDS: Lisinopril 20 MG TABLET PO SCH (07:53)
[2017-09-23] MEDS: Insulin LISPRO 300 UNITS/3 ML VIAL SQ SCH ×7 (07:54→20:14)
[2017-09-23] MEDS: Insulin DETEMIR 100 UNIT/ML X5UNITS SQ SCH ×2 (07:56→20:14)
[2017-09-23] MEDS: (Mirabegron [Myrbetriq] 50 MG) PO SCH (07:57)
[2017-09-23] MEDS ORDERED: Insulin DETEMIR 100 UNIT/ML X5UNITS SQ ONE (08:52)
--- NOTE | 2017-09-23 09:01 | Internal Med Progress Note ---
<Kwabena Shaw - Last Filed: 09/23/17 17:25> Date of Encounter: 09/23/17 - Assessment and plan (1) Acute and chronic respiratory failure Current Visit: No Status: Acute Qualifiers: Respiratory failure complication: hypoxia and hypercapnia Qualified Code(s) : J96.21 - Acute and chronic respiratory failure with hypoxia; J96.22 - Acute and chronic respiratory failure with hypercapnia (2) COPD exacerbation Current Visit: Yes Status: Acute (3) Diabetes Current Visit: Yes Status: Chronic Qualifiers: Diabetes mellitus type: type 2 Diabetes mellitus detention insulin use: with detention use Diabetes mellitus complication status: with neurologic complications Diabetes mellitus complication detail: with polyneuropathy Qualified Code(s): E11.42 - Type 2 diabetes mellitus with diabetic polyneuropathy; Z79.4 - long term (current) use of insulin (4) Hypoxemia Current Visit: Yes Status: Resolved (5) CAD (coronary artery disease) Current Visit: Yes Status: Chronic Qualifiers: Coronary Disease-Associated Artery/Lesion type: [place] artery [place] vs. transplanted heart: osage heart Associated angina: without angina Qualified Code(s): I25.10 - Atherosclerotic heart disease of [place] coronary artery without angina pectoris (6) MALLORY (obstructive sleep apnea) Current Visit: Yes Status: Chronic (7) Morbid obesity Current Visit: Yes Status: Chronic (8) Hypothyroidism Current Visit: Yes Status: Chronic Qualifiers: Hypothyroidism type: acquired Qualified Code(s): E03.9 - Hypothyroidism, unspecified (9) Atrial fibrillation Current Visit: Yes Status: Chronic Qualifiers: Atrial fibrillation type: chronic Qualified Code(s): I48.2 - Chronic atrial fibrillation (10) Elevated troponin Current Visit: Yes Status: Acute (11) HTN (hypertension) Current Visit: Yes Status: Chronic Qualifiers: Hypertension type: essential hypertension Qualified Code(s): I10 - Essential (primary) hypertension (12) HLD (hyperlipidemia) Current Visit: Yes Status: Chronic Qualifiers: Hyperlipidemia type: pure hypercholesterolemia Qualified Code(s): E78.00 - Pure hypercholesterolemia, unspecified; E78.0 - Pure hypercholesterolemia (13) DVT prophylaxis Current Visit: Yes Status: Acute (14) Hypokalemia Current Visit: Yes Status: Resolved (15) Choking Current Visit: Yes Status: Chronic Qualifiers: Encounter type: initial encounter Qualified Code(s): T17.308A - Unspecified foreign body in larynx causing other injury, initial encounter (16) Hx of fall Current Visit: Yes Status: Chronic (17) Abdominal pain Current Visit: Yes Status: Acute Qualifiers: Abdominal location: right lower quadrant Qualified Code(s): R10.31 - Right lower quadrant pain - Time Spent With Patient Total time spent is greater than 50% in coordination of care (as documented) at patient's floor/unit and/or counseling patient: - Constitutional Vitals: Temp Pulse Resp BP Pulse Ox 97.9 F 93 20 117/75 94 09/23/17 15:28 09/23/17 15:28 09/23/17 15:32 09/23/17 15:28 09/23/17 15:32 Internal Medicine: Result - Labs CBC & Chem 7: 09/23/17 03:55 09/23/17 03:55 Labs: Short CBC 09/23/17 Range/Units 03:55 WBC 16.8 H D (4.3-11.1) K/mcL Hgb 12.9 (11.5-15.4) g/dL Hct 39.9 (35.3-44.9) % Plt Count 281 (140-400) K/mcL Neutrophils # 15.1 H (1.6-8.9) K/mcL BMP 09/23/17 03:55 Sodium 134 L Potassium 4.5 Chloride 92 L Carbon Dioxide 34 H BUN 24 H Creatinine 0.86 Glucose 428 H Calcium 9.4 Liver Function 09/23/17 Range/Units 03:55 Total Bilirubin 0.4 (0.3-1.0) mg/dL AST 17 (13-39) Units/L ALT 10 (7-52) Units/L Alkaline Phosphatase 90 (34-104) Units/L Albumin 3.1 L (3.5-5.7) g/dL - ABG Interpretation ABG results: ABG ABG pH 7.44 pH Units (7.32-7.45) 09/23/17 05:33 ABG pCO2 61 mmHg (35-45) H 09/23/17 05:33 ABG pO2 55 mmHg (85-104) L 09/23/17 05:33 ABG O2 Saturation 88 % (95-98) L 09/23/17 05:33 PT/INR, D-dimer PT 11.7 Seconds (9.4-12.1) 09/22/17 04:36 - Impressions Impressions Abdomen/Pelvis CT 09/22/17 16:30 IMPRESSION: 1. No acute findings within the abdomen or pelvis. No evidence of bowel obstruction or acute inflammatory changes. Previous appendectomy. 2. Bilateral nonobstructive nephrolithiasis. 3. Severe hepatic steatosis, most prevalent in the left lobe of the liver. 4. Bilateral lower lobe atelectasis, right greater than left. 5. Previous cholecystectomy, appendectomy and hysterectomy. 6. Indeterminate 1.7 cm adrenal nodule, increased in size from the comparison study. Assuming no history of malignancy, 1 year follow-up CT using adrenal protocol is recommended. 7. Bilateral renal lesions most consistent with cysts. Indeterminate right renal lesion measuring 3.3 cm, increased compared to the previous CT. This can be followed on adrenal imaging in 1 years time. D/ / 09/22/2017 17:22:02 Max Jc MD / [email or web address] Interpreting Provider: Max Jc MD Consult Discharge Plan - Plan Referrals: Corinne Mullins, LATH HAND [Primary Care Provider] - 09/30/17 2:15 pm - Attending Attestation I examined this patient and my medical decision-making was reviewed with the Resident Physician on 09/23/17. I agree with the documented findings, disposition and treatment plan as described except to the extent set forth below. Ms Em is currently admitted for acute exac COPD. She remains moderate to high risk due to potential for worsening clinical status. Ms Em feels she is breathing somewhat better today. Her abd pain is better today. No fever or chills. No cough. Exam Alert Comfortable Mucus membranes dry Heart reg Lungs clearer today Abd soft and nontender today. I/P 1. Acute exac COPD 2. DM - very uncontrolled. Insulin adjusted today. Further diagnoses and plan as above. 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 Pt qualified for BiPAP. Use BiPap during any and all sleep times. (3) Hypoxemia Current Visit: Yes Status: Resolved Assessment and plan: O2 sat in 90s with 4 lpm O2 via nasal cannula Continue to monitor and adjust O2 as needed (4) CAD (coronary artery disease) Current Visit: Yes Status: Chronic Assessment and plan: Continue home dose of metoprolol succinate Qualifiers: Coronary Disease-Associated Artery/Lesion type: [place] artery [place] vs. transplanted heart: [place] heart Associated angina: without angina Qualified Code(s): I25.10 - Atherosclerotic heart disease of [place] coronary artery without angina pectoris (5) Morbid obesity Current Visit: Yes Status: Chronic (6) COPD exacerbation Current Visit: Yes Status: Acute Assessment and plan: Improving with high flow O2 ABG revealed improving hypercapnia from 7/3 Solumedrol 60 q8 (7) Acute and chronic respiratory failure Current Visit: No Status: Acute Assessment and plan: ABG revealed improving hypercapnia and hypoxemia Qualifiers: Respiratory failure complication: hypoxia and hypercapnia Qualified Code(s) : J96.21 - Acute and chronic respiratory failure with hypoxia; J96.22 - Acute and chronic respiratory failure with hypercapnia (8) Hypothyroidism Current Visit: Yes Status: Chronic Assessment and plan: Continue home dose Synthroid Qualifiers: Hypothyroidism type: acquired Qualified Code(s): E03.9 - Hypothyroidism, unspecified (9) Atrial fibrillation Current Visit: Yes Status: Chronic Assessment and plan: Continue home medication of metoprolol, and monitor rate. Qualifiers: Atrial fibrillation type: chronic Qualified Code(s): I48.2 - Chronic atrial fibrillation (10) Elevated troponin Current Visit: Yes Status: Acute Assessment and plan: Likely due to demand ischemia from COPD exacerbation and afib. (11) HTN (hypertension) Current Visit: Yes Status: Chronic Assessment and plan: Currently normotensive Continue home meds Qualifiers: Hypertension type: essential hypertension Qualified Code(s): I10 - Essential (primary) hypertension (12) HLD (hyperlipidemia) Current Visit: Yes Status: Chronic Assessment and plan: pt hx of hypercholesterolemia Continue home dose Lipitor Qualifiers: Hyperlipidemia type: pure hypercholesterolemia Qualified Code(s): E78.00 - Pure hypercholesterolemia, unspecified; E78.0 - Pure hypercholesterolemia (13) DVT prophylaxis Current Visit: Yes Status: Acute (14) Hypokalemia Current Visit: Yes Status: Resolved Assessment and plan: Tolday's potassium 4.5 Continue to monitor closely due to large insulin adjustments for hyperglycemia (15) Choking Current Visit: Yes Status: Chronic Qualifiers: Encounter type: initial encounter Qualified Code(s): T17.308A - Unspecified foreign body in larynx causing other injury, initial encounter (16) Hx of fall Current Visit: Yes Status: Chronic Assessment and plan: Plan for home health nursing and pt on discharge (17) Abdominal pain Current Visit: Yes Status: Acute Assessment and plan: CT revealed stable Right renal mass, and left adrenal mass. No evidence of acute abnormalities Qualifiers: Abdominal location: right lower quadrant Qualified Code(s): R10.31 - Right lower quadrant pain - Time Spent With Patient Total time spent is greater than 50% in coordination of care (as documented) at patient's floor/unit and/or counseling patient: - Subjective Interval history: Mrs. Em is a 76-year-old female who was admitted for shortness of breath and COPD exacerbation. She has a history of arthritis, atrial fibrillation, uterine and kidney cancer, CAD, diabetes, HLD, hypertension, [place] in 2017 with 2 stents, and renal disease. 09/22: No acute events overnight. Patient is sitting up in bed with evidence of mild labored breathing. Patient complains of still feeling short of breath, however it is improved since yesterday. Patient complains of some chest tightness, but denies any chest pain. Patient also complains of lower left abdominal pain and nausea, but denies any vomiting. Denies any increasing cough , or sputum production. No difficulty urinating, blood in stool or urine, or edema in extremities. 09/23: No acute events overnight. Pt sitting up in bed and eating breakfast during this encounter, speaking in full sentences. Pt states she feels "much better". States she no longer feels short of breath and the abdominal tightness has improved. She also stated she no longer feels nauseous and is happy to have an appetite once again. - Constitutional Vitals: Temp Pulse Resp BP Pulse Ox 97.6 F 96 18 114/68 98 09/23/17 07:39 09/23/17 07:39 09/23/17 07:39 09/23/17 07:39 09/23/17 07:39 General appearance: Present: cooperative, A&O X 3, morbidly obese, pleasant, severe distress (Respiratory), answers questions appropriately Exam: Head: Atraumatic, normocephalic Eyes: PERRL, EOMI, conjunctiva pink, sclera anicteric Respiratory: Clear to auscultation bilaterally, lung sounds grossly diminished particularly in the right lower lobe. No labored breathing. No wheezes, rales, or rhonchi noted. Heart: Irregular rhythm. +S2. Distant heart sounds. No murmur, gallop, clicks or rubs noted. GI: Abdomen soft, nontender, mildly distended, with normoactive bowel sounds. Extremities: Warm, radial pulses palpable and symmetrical. No cyanosis or edema noted. TTP of LEs consistent pt's history of diabetic neuropathy. Neuro: Alert and oriented 3, no focal deficits, no speech difficulty. Skin: Warm, dry, intact. Internal Medicine: Result - Labs CBC & Chem 7: 09/23/17 03:55 09/23/17 03:55 Labs: Short CBC 09/23/17 Range/Units 03:55 WBC 16.8 H D (4.3-11.1) K/mcL Hgb 12.9 (11.5-15.4) g/dL Hct 39.9 (35.3-44.9) % Plt Count 281 (140-400) K/mcL Neutrophils # 15.1 H (1.6-8.9) K/mcL BMP 09/23/17 03:55 Sodium 134 L Potassium 4.5 Chloride 92 L Carbon Dioxide 34 H BUN 24 H Creatinine 0.86 Glucose 428 H Calcium 9.4 Liver Function 09/23/17 Range/Units 03:55 Total Bilirubin 0.4 (0.3-1.0) mg/dL AST 17 (13-39) Units/L ALT 10 (7-52) Units/L Alkaline Phosphatase 90 (34-104) Units/L Albumin 3.1 L (3.5-5.7) g/dL - ABG Interpretation ABG results: ABG ABG pH 7.44 pH Units (7.32-7.45) 09/23/17 05:33 ABG pCO2 61 mmHg (35-45) H 09/23/17 05:33 ABG pO2 55 mmHg (85-104) L 09/23/17 05:33 ABG O2 Saturation 88 % (95-98) L 09/23/17 05:33 PT/INR, D-dimer PT 11.7 Seconds (9.4-12.1) 09/22/17 04:36 - Impressions Impressions Abdomen/Pelvis CT 09/22/17 16:30 IMPRESSION: 1. No acute findings within the abdomen or pelvis. No evidence of bowel obstruction or acute inflammatory changes. Previous appendectomy. 2. Bilateral nonobstructive nephrolithiasis. 3. Severe hepatic steatosis, most prevalent in the left lobe of the liver. 4. Bilateral lower lobe atelectasis, right greater than left. 5. Previous cholecystectomy, appendectomy and hysterectomy. 6. Indeterminate 1.7 cm adrenal nodule, increased in size from the comparison study. Assuming no history of malignancy, 1 year follow-up CT using adrenal protocol is recommended. 7. Bilateral renal lesions most consistent with cysts. Indeterminate right renal lesion measuring 3.3 cm, increased compared to the previous CT. This can be followed on adrenal imaging in 1 years time. D/ / 09/22/2017 17:22:02 Max Jc MD / [email or web address] Interpreting Provider: Max Jc MD
[2017-09-23] MEDS: Nystatin POWDER 30 GM BOTTLE TP SCH ×2 (11:50→20:14)
[2017-09-23] MEDS ORDERED: Insulin LISPRO 300 UNITS/3 ML VIAL SQ ONE (18:00)
[2017-09-24] MEDS: methylPREDNISolone 125 MG/2 ML VIAL IVP SCH ×2 (00:17→08:04)
[2017-09-24] MEDS: *HR* Heparin 5,000 UNIT/ML VIAL SQ SCH ×4 (00:17→23:42)
[2017-09-24] MEDS: traMADol 50 MG TABLET PO PRN ×3 (00:23→20:43)
[2017-09-24 04:08] LABS: Basophils % 0.1 %; Hemoglobin 13.5 g/dL (11.5-15.4); Immature Granulocytes % 1.6 % (0-4); Lymphocytes # 0.8 K/mcL (0.6-4.6); Lymphocytes % 5.2 %; Mean Corpuscular HGB Conc 32.9 g/dL (31.6-35.5); Mean Corpuscular Volume 97.2 fL (83.0-100.0); Mean Platelet Volume 10.5 fL (9.4-12.4); Monocytes # 0.6 K/mcL (0.0-1.3); Monocytes % 4.2 %; Neutrophils # 13.2 K/mcL (1.6-8.9); Platelet Count 287 K/mcL (140-400); Red Blood Count 4.22 M/mcL (3.82-4.97); Red Cell Distribution Width 13.4 % (11.5-14.5); Segmented Neutrophils % 88.9 %
[2017-09-24 04:19] LABS: Alanine Aminotransferase 15 Units/L (7-52); Albumin 3.2 g/dL (3.5-5.7); Albumin/Globulin Ratio 1.3 (1.1-2.2); Alkaline Phosphatase 97 Units/L (34-104); Aspartate Amino Transferase 22 Units/L (13-39); BUN/Creatinine Ratio 31 (6-26); Bilirubin,Total 0.4 mg/dL (0.3-1.0); Blood Urea Nitrogen 28 mg/dL (8-23); Calcium 9.3 mg/dL (8.6-10.3); Carbon Dioxide 34 mEq/L (23-29); Chloride 92 mEq/L (98-107); Globulin 2.5 g/dL (2.4-3.5); Glucose 494 mg/dL (70-105); Osmolality,Calculated 305 (280-300); Sodium 134 mEq/L (136-145); Total Protein 5.7 g/dL (6.4-8.9); eGFR For African Americans > 60 (> 60); eGFR For Non-African Americans > 60 (> 60)
[2017-09-24] MEDS: Ipratropium/Albuterol Neb 3 ML IH SCH ×4 (04:40→22:31)
[2017-09-24] MEDS: Insulin LISPRO 300 UNITS/3 ML VIAL SQ SCH ×4 (08:03→12:25)
[2017-09-24] MEDS: Furosemide 20 MG TABLET PO SCH (08:04)
[2017-09-24] MEDS: Metoprolol XL (24 HR) Succ 25 MG TAB.ER.24H PO SCH (08:04)
[2017-09-24] MEDS: Aspirin Enteric Coated 81 MG Tablet PO SCH (08:04)
[2017-09-24] MEDS: Lisinopril 20 MG TABLET PO SCH (08:04)
[2017-09-24] MEDS: Nystatin POWDER 30 GM BOTTLE TP SCH ×2 (08:05→20:16)
[2017-09-24] MEDS: Multivit/Ca/Min/Fe/FA 1 TAB TABLET PO SCH (08:05)
[2017-09-24] MEDS: (Mirabegron [Myrbetriq] 50 MG) PO SCH (08:05)
[2017-09-24] MEDS: Levofloxacin 750 MG/150 ML 750 MG/150 ML BAG IVPB SCH (08:06)
[2017-09-24] MEDS: Insulin DETEMIR 100 UNIT/ML X5UNITS SQ SCH (08:06)
--- NOTE | 2017-09-24 09:52 | Internal Med Progress Note ---
<Jered Lemus - Last Filed: 09/24/17 16:45> Date of Encounter: 09/24/17 Time of Encounter: 08:30 - Assessment and plan (1) Diabetes Current Visit: Yes Status: Chronic Assessment and plan: Glucose levels continue to be >400 despite high dose SSI Insulin drip overnight until blood glucose <200, then resume home insulin regimen. Decreased steroid regimen from Solumedrol 60q8 to prednisone 40mg BID po. 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 Use BiPap during any and all sleep times. (3) Hypoxemia Current Visit: Yes Status: Resolved Assessment and plan: O2 sat in 90s with 4 lpm O2 via nasal cannula Continue to monitor and adjust O2 as needed (4) CAD (coronary artery disease) Current Visit: Yes Status: Chronic Assessment and plan: Continue home meds Qualifiers: Coronary Disease-Associated Artery/Lesion type: [place] artery [place] vs. transplanted heart: [place] heart Associated angina: without angina Qualified Code(s): I25.10 - Atherosclerotic heart disease of [place] coronary artery without angina pectoris (5) Morbid obesity Current Visit: Yes Status: Chronic (6) COPD exacerbation Current Visit: Yes Status: Acute Assessment and plan: Continues to improve On 4 lpm O2, which is regular home level Decrease steroid regimen from solumedrol 60 q8h to prednisone 40mg BID po. Plan for pulmonary follow up after discharge. no inpatient consult necessary at this time. (7) Acute and chronic respiratory failure Current Visit: No Status: Acute Qualifiers: Respiratory failure complication: hypoxia and hypercapnia Qualified Code(s) : J96.21 - Acute and chronic respiratory failure with hypoxia; J96.22 - Acute and chronic respiratory failure with hypercapnia (8) Hypothyroidism Current Visit: Yes Status: Chronic Assessment and plan: Continue home dose Synthroid Qualifiers: Hypothyroidism type: acquired Qualified Code(s): E03.9 - Hypothyroidism, unspecified (9) Atrial fibrillation Current Visit: Yes Status: Chronic Assessment and plan: Continue home medication of metoprolol, and monitor rate. Qualifiers: Atrial fibrillation type: chronic Qualified Code(s): I48.2 - Chronic atrial fibrillation (10) Elevated troponin Current Visit: Yes Status: Acute Assessment and plan: Likely due to demand ischemia from COPD exacerbation and afib. (11) HTN (hypertension) Current Visit: Yes Status: Chronic Assessment and plan: Currently normotensive Continue home meds Qualifiers: Hypertension type: essential hypertension Qualified Code(s): I10 - Essential (primary) hypertension (12) HLD (hyperlipidemia) Current Visit: Yes Status: Chronic Qualifiers: Hyperlipidemia type: pure hypercholesterolemia Qualified Code(s): E78.00 - Pure hypercholesterolemia, unspecified; E78.0 - Pure hypercholesterolemia (13) DVT prophylaxis Current Visit: Yes Status: Acute (14) Hypokalemia Current Visit: Yes Status: Resolved (15) Choking Current Visit: Yes Status: Chronic Qualifiers: Encounter type: initial encounter Qualified Code(s): T17.308A - Unspecified foreign body in larynx causing other injury, initial encounter (16) Hx of fall Current Visit: Yes Status: Chronic Assessment and plan: Plan for home health nursing and PT on discharge (17) Abdominal pain Current Visit: Yes Status: Acute Assessment and plan: CT revealed stable Right renal mass, and left adrenal mass. No evidence of acute abnormalities Qualifiers: Abdominal location: right lower quadrant Qualified Code(s): R10.31 - Right lower quadrant pain - Time Spent With Patient Total time spent is greater than 50% in coordination of care (as documented) at patient's floor/unit and/or counseling patient: - Subjective Interval history: Mrs. Em is a 76-year-old female who was admitted for shortness of breath and COPD exacerbation. She has a history of arthritis, atrial fibrillation, uterine and kidney cancer, CAD, diabetes, HLD, hypertension, [place] in 2017 with 2 stents, and renal disease. 09/22: No acute events overnight. Patient is sitting up in bed with evidence of mild labored breathing. Patient complains of still feeling short of breath, however it is improved since yesterday. Patient complains of some chest tightness, but denies any chest pain. Patient also complains of lower left abdominal pain and nausea, but denies any vomiting. Denies any increasing cough , or sputum production. No difficulty urinating, blood in stool or urine, or edema in extremities. 09/23: No acute events overnight. Pt sitting up in bed and eating breakfast during this encounter, speaking in full sentences. Pt states she feels "much better". States she no longer feels short of breath and the abdominal tightness has improved. She also stated she no longer feels nauseous and is happy to have an appetite once again. - Constitutional Vitals: Temp Pulse Resp BP Pulse Ox 97.9 F 100 18 141/69 98 09/24/17 07:24 09/24/17 07:24 09/24/17 09:41 09/24/17 07:24 09/24/17 09:41 General appearance: Present: cooperative, A&O X 3, morbidly obese, pleasant, severe distress (Respiratory), answers questions appropriately Exam: Head: Atraumatic, normocephalic Eyes: PERRL, EOMI, conjunctiva pink, sclera anicteric Respiratory: Clear to auscultation bilaterally, lung sounds still diminished but improved from yesterday. No labored breathing. No wheezes, rales, or rhonchi noted. Heart: Irregular rhythm. +S2. No murmur, gallop, clicks or rubs noted. GI: Abdomen soft, nontender, mildly distended, with normoactive bowel sounds. Extremities: Warm, radial pulses palpable and symmetrical. No cyanosis or edema noted. TTP of LEs consistent pt's history of diabetic neuropathy. Neuro: Alert and oriented 3, no focal deficits, no speech difficulty. Skin: Warm, dry, intact. Internal Medicine: Result - Labs CBC & Chem 7: 09/24/17 03:49 09/24/17 03:49 Labs: Short CBC 09/24/17 Range/Units 03:49 WBC 14.8 H (4.3-11.1) K/mcL Hgb 13.5 (11.5-15.4) g/dL Hct 41.0 (35.3-44.9) % Plt Count 287 (140-400) K/mcL Neutrophils # 13.2 H (1.6-8.9) K/mcL BMP 09/24/17 03:49 Sodium 134 L Potassium 5.0 Chloride 92 L Carbon Dioxide 34 H BUN 28 H Creatinine 0.91 Glucose 494 H Calcium 9.3 Liver Function 09/24/17 Range/Units 03:49 Total Bilirubin 0.4 (0.3-1.0) mg/dL AST 22 (13-39) Units/L ALT 15 (7-52) Units/L Alkaline Phosphatase 97 (34-104) Units/L Albumin 3.2 L (3.5-5.7) g/dL - ABG Interpretation ABG results: ABG ABG pH 7.44 pH Units (7.32-7.45) 09/23/17 05:33 ABG pCO2 61 mmHg (35-45) H 09/23/17 05:33 ABG pO2 55 mmHg (85-104) L 09/23/17 05:33 ABG O2 Saturation 88 % (95-98) L 09/23/17 05:33 PT/INR, D-dimer PT 11.7 Seconds (9.4-12.1) 09/22/17 04:36 Consult Discharge Plan - Plan Referrals: Corinne Mullins CNP [Primary Care Provider] - 09/30/17 2:15 pm <Kwabena Shaw - Last Filed: 09/24/17 18:18> Date of Encounter: 09/24/17 - Assessment and plan (1) Diabetes Current Visit: Yes Status: Chronic Qualifiers: Diabetes mellitus type: type 2 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 transplanted heart: [place] heart Associated angina: without angina Qualified Code(s): I25.10 - Atherosclerotic heart disease of [place] coronary artery without angina pectoris (4) MALLORY (obstructive sleep apnea) Current Visit: Yes Status: Chronic (5) Morbid obesity Current Visit: Yes Status: Chronic (6) Acute and chronic respiratory failure Current Visit: No Status: Acute Qualifiers: Respiratory failure complication: hypoxia and hypercapnia Qualified Code(s) : J96.21 - Acute and chronic respiratory failure with hypoxia; J96.22 - Acute and chronic respiratory failure with hypercapnia (7) Hypothyroidism Current Visit: Yes Status: Chronic Qualifiers: Hypothyroidism type: acquired Qualified Code(s): E03.9 - Hypothyroidism, unspecified (8) COPD exacerbation Current Visit: Yes Status: Acute (9) Atrial fibrillation Current Visit: Yes Status: Chronic Qualifiers: Atrial fibrillation type: chronic Qualified Code(s): I48.2 - Chronic atrial fibrillation (10) Elevated troponin Current Visit: Yes Status: Acute (11) HTN (hypertension) Current Visit: Yes Status: Chronic Qualifiers: Hypertension type: essential hypertension Qualified Code(s): I10 - Essential (primary) hypertension (12) HLD (hyperlipidemia) Current Visit: Yes Status: Chronic Qualifiers: Hyperlipidemia type: pure hypercholesterolemia Qualified Code(s): E78.00 - Pure hypercholesterolemia, unspecified; E78.0 - Pure hypercholesterolemia (13) DVT prophylaxis Current Visit: Yes Status: Acute (14) Hypokalemia Current Visit: Yes Status: Resolved (15) Choking Current Visit: Yes Status: Chronic Qualifiers: Encounter type: initial encounter Qualified Code(s): T17.308A - Unspecified foreign body in larynx causing other injury, initial encounter (16) Hx of fall Current Visit: Yes Status: Chronic (17) Abdominal pain Current Visit: Yes Status: Acute Qualifiers: Abdominal location: right lower quadrant Qualified Code(s): R10.31 - Right lower quadrant pain - Time Spent With Patient Total time spent is greater than 50% in coordination of care (as documented) at patient's floor/unit and/or counseling patient: - Constitutional Vitals: Temp Pulse Resp BP Pulse Ox 98.4 F 105 18 119/68 97 09/24/17 16:06 09/24/17 16:06 09/24/17 16:06 09/24/17 16:06 09/24/17 16:06 Internal Medicine: Result - Labs CBC & Chem 7: 09/24/17 03:49 09/24/17 03:49 Labs: Short CBC 09/24/17 Range/Units 03:49 WBC 14.8 H (4.3-11.1) K/mcL Hgb 13.5 (11.5-15.4) g/dL Hct 41.0 (35.3-44.9) % Plt Count 287 (140-400) K/mcL Neutrophils # 13.2 H (1.6-8.9) K/mcL BMP 09/24/17 03:49 Sodium 134 L Potassium 5.0 Chloride 92 L Carbon Dioxide 34 H BUN 28 H Creatinine 0.91 Glucose 494 H Calcium 9.3 Liver Function 09/24/17 Range/Units 03:49 Total Bilirubin 0.4 (0.3-1.0) mg/dL AST 22 (13-39) Units/L ALT 15 (7-52) Units/L Alkaline Phosphatase 97 (34-104) Units/L Albumin 3.2 L (3.5-5.7) g/dL - ABG Interpretation ABG results: ABG ABG pH 7.44 pH Units (7.32-7.45) 09/23/17 05:33 ABG pCO2 61 mmHg (35-45) H 09/23/17 05:33 ABG pO2 55 mmHg (85-104) L 09/23/17 05:33 ABG O2 Saturation 88 % (95-98) L 09/23/17 05:33 PT/INR, D-dimer PT 11.7 Seconds (9.4-12.1) 09/22/17 04:36 - Attending Attestation I examined this patient and my medical decision-making was reviewed with the Resident Physician on 09/24/17. I agree with the documented findings, disposition and treatment plan as described except to the extent set forth below. Ms Em is currently admitted for COPD exacerbation. Her sugars continue to be markedly elevated. She remains high risk due to potential for worsening clinical status. Ms Em is resting comfortably. Her sugars are still very elevated despite adjustments in insulin. No fever or chills. No cough now. No GI issues. Exam alert COmfortable Mucus membranes dry Heart distant No wheeze I/P 1. COPD exac 2. DM - very uncontrolled. Insulin drip tonight. Further diagnoses and plan as above.
[2017-09-24] MEDS ORDERED: Insulin Human Regular 10 UNIT in 0.9 % Sodium Chloride 10 ML IV STA (11:58)
[2017-09-24] MEDS ORDERED: Insulin LISPRO 300 UNITS/3 ML VIAL SQ STA (14:40)
[2017-09-24] MEDS ORDERED: Insulin Human Regular 100 UNIT in 0.9 % Sodium Chloride 100 ML IVC SCH (16:45)
[2017-09-24] MEDS ORDERED: MethylPREDNISolone 40 MG/ML VIAL IVP SCH (18:00)
[2017-09-24] MEDS: predniSONE 20 MG TABLET PO SCH (18:20)
[2017-09-24] MEDS: Melatonin 3 MG TABLET PO PRN (20:43)
[2017-09-25] MEDS: Insulin LISPRO 300 UNITS/3 ML VIAL SQ SCH ×5 (02:19→21:53)
[2017-09-25] MEDS: Ipratropium/Albuterol Neb 3 ML IH SCH ×4 (03:52→22:33)
[2017-09-25 04:56] LABS: Basophils % 0.4 %; Hematocrit 38.5 % (35.3-44.9); Hemoglobin 12.3 g/dL (11.5-15.4); Lymphocytes # 0.7 K/mcL (0.6-4.6); Lymphocytes % 6.4 %; Mean Corpuscular HGB Conc 31.9 g/dL (31.6-35.5); Mean Corpuscular Hemoglobin 30.8 pg (28.0-33.3); Mean Corpuscular Volume 96.5 fL (83.0-100.0); Mean Platelet Volume 10.2 fL (9.4-12.4); Monocytes # 0.9 K/mcL (0.0-1.3); Monocytes % 7.7 %; Neutrophils # 9.2 K/mcL (1.6-8.9); Platelet Count 282 K/mcL (140-400); Red Blood Count 3.99 M/mcL (3.82-4.97); Red Cell Distribution Width 13.5 % (11.5-14.5); Segmented Neutrophils % 83.5 %
[2017-09-25 05:15] LABS: Alanine Aminotransferase 19 Units/L (7-52); Albumin/Globulin Ratio 1.3 (1.1-2.2); Alkaline Phosphatase 88 Units/L (34-104); Aspartate Amino Transferase 33 Units/L (13-39); BUN/Creatinine Ratio 31 (6-26); Bilirubin,Total 0.4 mg/dL (0.3-1.0); Blood Urea Nitrogen 24 mg/dL (8-23); Carbon Dioxide 36 mEq/L (23-29); Chloride 95 mEq/L (98-107); Globulin 2.3 g/dL (2.4-3.5); Glucose 253 mg/dL (70-105); Osmolality,Calculated 299 (280-300); Potassium 4.1 mEq/L (3.5-5.1); Sodium 138 mEq/L (136-145); Total Protein 5.3 g/dL (6.4-8.9); eGFR For African Americans > 60 (> 60); eGFR For Non-African Americans > 60 (> 60)
[2017-09-25] MEDS: (Mirabegron [Myrbetriq] 50 MG) PO SCH (08:40)
[2017-09-25] MEDS: levoFLOXacin 750 MG TABLET PO SCH (08:48)
[2017-09-25] MEDS: Lisinopril 20 MG TABLET PO SCH (08:48)
[2017-09-25] MEDS: Aspirin Enteric Coated 81 MG Tablet PO SCH (08:49)
[2017-09-25] MEDS: Multivit/Ca/Min/Fe/FA 1 TAB TABLET PO SCH (08:49)
[2017-09-25] MEDS: Furosemide 20 MG TABLET PO SCH (08:49)
[2017-09-25] MEDS: Metoprolol XL (24 HR) Succ 25 MG TAB.ER.24H PO SCH (08:49)
[2017-09-25] MEDS: predniSONE 20 MG TABLET PO SCH (08:49)
[2017-09-25] MEDS: Insulin DETEMIR 100 UNIT/ML X5UNITS SQ SCH ×2 (08:50→21:54)
[2017-09-25] MEDS: *HR* Heparin 5,000 UNIT/ML VIAL SQ SCH ×2 (08:50→17:16)
[2017-09-25] MEDS: Nystatin POWDER 30 GM BOTTLE TP SCH ×2 (08:50→21:58)
--- NOTE | 2017-09-25 09:14 | Internal Med Progress Note ---
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 Diabetes mellitus complication status: with neurologic complications Diabetes mellitus complication detail: with polyneuropathy Qualified Code(s): E11.42 - Type 2 diabetes mellitus with diabetic polyneuropathy; Z79.4 - snf (current) use of insulin (2) HTN (hypertension) Current Visit: Yes Status: Chronic Assessment and plan: Elevated BP this AM at 152/90 Continue home meds Continue to monitor Qualifiers: Hypertension type: essential hypertension Qualified Code(s): I10 - Essential (primary) hypertension (3) MALLORY (obstructive sleep apnea) Current Visit: Yes Status: Chronic Assessment and plan: Pt qualified for BiPAP. Use BiPap during any and all sleep times. (4) Hypoxemia Current Visit: Yes Status: Resolved Assessment and plan: O2 sat in 90s with 4 lpm O2 via nasal cannula Continue to monitor and adjust O2 as needed (5) COPD exacerbation Current Visit: Yes Status: Acute Assessment and plan: Continues to improve On 4 lpm O2, which is regular home level prednisone 40mg qd po. Plan for pulmonary follow up after discharge. no inpatient consult necessary at this time. (6) CAD (coronary artery disease) Current Visit: Yes Status: Chronic Assessment and plan: Continue home meds Qualifiers: Coronary Disease-Associated Artery/Lesion type: [place] artery [place] vs. transplanted heart: [place] heart Associated angina: without angina Qualified Code(s): I25.10 - Atherosclerotic heart disease of [place] coronary artery without angina pectoris (7) Morbid obesity Current Visit: Yes Status: Chronic (8) Acute and chronic respiratory failure Current Visit: No Status: Acute Qualifiers: Respiratory failure complication: hypoxia and hypercapnia Qualified Code(s) : J96.21 - Acute and chronic respiratory failure with hypoxia; J96.22 - Acute and chronic respiratory failure with hypercapnia (9) Hypothyroidism Current Visit: Yes Status: Chronic Assessment and plan: Continue home dose Synthroid Qualifiers: Hypothyroidism type: acquired Qualified Code(s): E03.9 - Hypothyroidism, unspecified (10) Atrial fibrillation Current Visit: Yes Status: Chronic Assessment and plan: Continue home medication of metoprolol, and monitor rate. Qualifiers: Atrial fibrillation type: chronic Qualified Code(s): I48.2 - Chronic atrial fibrillation (11) Elevated troponin Current Visit: Yes Status: Acute Assessment and plan: Likely due to demand ischemia from COPD exacerbation and afib. (12) HLD (hyperlipidemia) Current Visit: Yes Status: Chronic Qualifiers: Hyperlipidemia type: pure hypercholesterolemia Qualified Code(s): E78.00 - Pure hypercholesterolemia, unspecified (13) DVT prophylaxis Current Visit: Yes Status: Acute (14) Hypokalemia Current Visit: Yes Status: Resolved (15) Choking Current Visit: Yes Status: Chronic Qualifiers: Encounter type: initial encounter Qualified Code(s): T17.308A - Unspecified foreign body in larynx causing other injury, initial encounter (16) Hx of fall Current Visit: Yes Status: Chronic (17) Abdominal pain Current Visit: Yes Status: Acute Assessment and plan: Pt states tightness has improved and is only associated with eating too much during meals CT on 09/22 revealed stable Right renal mass, and left adrenal mass. No evidence of acute abnormalities Qualifiers: Abdominal location: right lower quadrant Qualified Code(s): R10.31 - Right lower quadrant pain - Time Spent With Patient Total time spent is greater than 50% in coordination of care (as documented) at patient's floor/unit and/or counseling patient: - Subjective Interval history: Mrs. Em is a 76-year-old female who was admitted for shortness of breath and COPD exacerbation. She has a history of arthritis, atrial fibrillation, uterine and kidney cancer, CAD, diabetes, HLD, hypertension, [place] in 2017 with 2 stents, and renal disease. 09/22: No acute events overnight. Patient is sitting up in bed with evidence of mild labored breathing. Patient complains of still feeling short of breath, however it is improved since yesterday. Patient complains of some chest tightness, but denies any chest pain. Patient also complains of lower left abdominal pain and nausea, but denies any vomiting. Denies any increasing cough , or sputum production. No difficulty urinating, blood in stool or urine, or edema in extremities. 7/5: No acute events overnight. Pt sitting up in bed and eating breakfast during this encounter, speaking in full sentences. Pt states she feels "much better". States she no longer feels short of breath and the abdominal tightness has improved. She also stated she no longer feels nauseous and is happy to have an appetite once again. 09/24: No acute events overnight. Pt stated she feels well with no acute complaints. 09/25: No acute events overnight. Pt sitting up in bed. Pt states she feels well and wants to know when she can be discharged. States her abdominal tightness only occurs now if she eats too much during meals. Denies any chest pain, shortness of breath, nausea, vomiting, or diarrhea. - Constitutional Vitals: Temp Pulse Resp BP Pulse Ox 97.8 F 93 18 152/90 98 09/25/17 08:00 09/25/17 08:00 09/25/17 08:00 09/25/17 08:00 09/25/17 08:00 General appearance: Present: cooperative, A&O X 3, morbidly obese, pleasant, severe distress (Respiratory), answers questions appropriately Exam: Head: Atraumatic, normocephalic Eyes: PERRL, EOMI, conjunctiva pink, sclera anicteric Respiratory: Clear to auscultation bilaterally. No labored breathing. On 4lmp O2 which is home dose. No wheezes, rales, or rhonchi noted. Heart: Irregular rhythm. +S2. No murmur, gallop, clicks or rubs noted. GI: Abdomen soft, nontender, non-distended, with normoactive bowel sounds. Extremities: Warm, radial pulses palpable and symmetrical. No cyanosis or edema noted. TTP of LEs consistent pt's history of diabetic neuropathy. Neuro: Alert and oriented 3, no focal deficits, no speech difficulty. Skin: Warm, dry, intact. Internal Medicine: Result - Labs CBC & Chem 7: 09/25/17 04:40 09/25/17 04:40 Labs: Short CBC 09/25/17 Range/Units 04:40 WBC 11.0 (4.3-11.1) K/mcL Hgb 12.3 (11.5-15.4) g/dL Hct 38.5 (35.3-44.9) % Plt Count 282 (140-400) K/mcL Neutrophils # 9.2 H (1.6-8.9) K/mcL BMP 09/25/17 04:40 Sodium 138 Potassium 4.1 Chloride 95 L Carbon Dioxide 36 H BUN 24 H Creatinine 0.78 Glucose 253 H Calcium 9.0 Liver Function 09/25/17 Range/Units 04:40 Total Bilirubin 0.4 (0.3-1.0) mg/dL AST 33 (13-39) Units/L ALT 19 (7-52) Units/L Alkaline Phosphatase 88 (34-104) Units/L Albumin 3.0 L (3.5-5.7) g/dL - ABG Interpretation Interpretation: ABG interpreted by me ABG results: ABG ABG pH 7.44 pH Units (7.32-7.45) 09/23/17 05:33 ABG pCO2 61 mmHg (35-45) H 09/23/17 05:33 ABG pO2 55 mmHg (85-104) L 09/23/17 05:33 ABG O2 Saturation 88 % (95-98) L 09/23/17 05:33 PT/INR, D-dimer PT 11.7 Seconds (9.4-12.1) 09/22/17 04:36 Interpretation: normal - EKG Interpretation EKG Interpreted by Myself: Yes Rate: tachycardia - Prior EKG Data Prior EKG available for review: yes When compared to previous EKG: there is no significant change Consult Discharge Plan - Plan Referrals: Corinne Mullins CNP [Primary Care Provider] - 09/30/17 2:15 pm <Kwabena Shaw - Last Filed: 09/25/17 16:06> Date of Encounter: 09/25/17 - Assessment and plan (1) Diabetes Current Visit: Yes Status: Chronic Qualifiers: Diabetes mellitus type: type 2 Diabetes mellitus skilled nursing insulin use: with skilled nursing use Diabetes mellitus complication status: with neurologic complications Diabetes mellitus complication detail: with polyneuropathy Qualified Code(s): E11.42 - Type 2 diabetes mellitus with diabetic polyneuropathy; 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 transplanted heart: [place] heart Associated angina: without angina Qualified Code(s): I25.10 - Atherosclerotic heart disease of [place] coronary artery without angina pectoris (4) MALLORY (obstructive sleep apnea) Current Visit: Yes Status: Chronic (5) Morbid obesity Current Visit: Yes Status: Chronic (6) Acute and chronic respiratory failure Current Visit: No Status: Acute Qualifiers: Respiratory failure complication: hypoxia and hypercapnia Qualified Code(s) : J96.21 - Acute and chronic respiratory failure with hypoxia; J96.22 - Acute and chronic respiratory failure with hypercapnia (7) Hypothyroidism Current Visit: Yes Status: Chronic Qualifiers: Hypothyroidism type: acquired Qualified Code(s): E03.9 - Hypothyroidism, unspecified (8) COPD exacerbation Current Visit: Yes Status: Acute (9) Atrial fibrillation Current Visit: Yes Status: Chronic Qualifiers: Atrial fibrillation type: chronic Qualified Code(s): I48.2 - Chronic atrial fibrillation (10) Elevated troponin Current Visit: Yes Status: Acute (11) HTN (hypertension) Current Visit: Yes Status: Chronic Qualifiers: Hypertension type: essential hypertension Qualified Code(s): I10 - Essential (primary) hypertension (12) HLD (hyperlipidemia) Current Visit: Yes Status: Chronic Qualifiers: Hyperlipidemia type: mixed hyperlipidemia Qualified Code(s): E78.2 - Mixed hyperlipidemia (13) DVT prophylaxis Current Visit: Yes Status: Acute (14) Hypokalemia Current Visit: Yes Status: Resolved (15) Choking Current Visit: Yes Status: Chronic Qualifiers: Encounter type: initial encounter Qualified Code(s): T17.308A - Unspecified foreign body in larynx causing other injury, initial encounter (16) Hx of fall Current Visit: Yes Status: Chronic (17) Abdominal pain Current Visit: Yes Status: Acute Qualifiers: Abdominal location: right lower quadrant Qualified Code(s): R10.31 - Right lower quadrant pain - Time Spent With Patient Total time spent is greater than 50% in coordination of care (as documented) at patient's floor/unit and/or counseling patient: - Constitutional Vitals: Temp Pulse Resp BP Pulse Ox 98.6 F 94 16 107/69 95 09/25/17 11:50 09/25/17 11:50 09/25/17 11:50 09/25/17 11:50 09/25/17 11:50 Internal Medicine: Result - Labs CBC & Chem 7: 09/25/17 04:40 09/25/17 04:40 Labs: Short CBC 09/25/17 Range/Units 04:40 WBC 11.0 (4.3-11.1) K/mcL Hgb 12.3 (11.5-15.4) g/dL Hct 38.5 (35.3-44.9) % Plt Count 282 (140-400) K/mcL Neutrophils # 9.2 H (1.6-8.9) K/mcL BMP 09/25/17 04:40 Sodium 138 Potassium 4.1 Chloride 95 L Carbon Dioxide 36 H BUN 24 H Creatinine 0.78 Glucose 253 H Calcium 9.0 Liver Function 09/25/17 Range/Units 04:40 Total Bilirubin 0.4 (0.3-1.0) mg/dL AST 33 (13-39) Units/L ALT 19 (7-52) Units/L Alkaline Phosphatase 88 (34-104) Units/L Albumin 3.0 L (3.5-5.7) g/dL - ABG Interpretation ABG results: ABG ABG pH 7.44 pH Units (7.32-7.45) 09/23/17 05:33 ABG pCO2 61 mmHg (35-45) H 09/23/17 05:33 ABG pO2 55 mmHg (85-104) L 09/23/17 05:33 ABG O2 Saturation 88 % (95-98) L 09/23/17 05:33 PT/INR, D-dimer PT 11.7 Seconds (9.4-12.1) 09/22/17 04:36 - Attending Attestation I examined this patient and my medical decision-making was reviewed with the Resident Physician on 09/25/17. I agree with the documented findings, disposition and treatment plan as described except to the extent set forth below. Ms Em is currently admitted for acute exac COPD. Her blood sugars have been very difficult to control. She had insulin drip overnight. She remains moderate to high risk due to potential worsening clinical status. Ms Em is feeling OK. Her blood sugars are better today. No fever or chills. She wants to go home. Exam alert Comfortable Mucus membranes dry Heart reg No wheeze at this time Abd soft I/P 1. COPD exac improving 2. Hyperglycemia improving Will keep tonight and monitor sugars off drip. Further diagnoses and plan as above.
[2017-09-25] MEDS: Melatonin 3 MG TABLET PO PRN (21:53)
[2017-09-25] MEDS: traMADol 50 MG TABLET PO PRN (21:53)
[2017-09-26] MEDS: *HR* Heparin 5,000 UNIT/ML VIAL SQ SCH ×2 (02:43→09:15)
[2017-09-26] MEDS: Ipratropium/Albuterol Neb 3 ML IH SCH ×3 (03:43→15:27)
[2017-09-26 06:28] LABS: Basophils # 0.1 K/mcL (0.0-0.2); Basophils % 0.5 %; Eosinophils % 0.3 %; Hematocrit 40.7 % (35.3-44.9); Hemoglobin 12.6 g/dL (11.5-15.4); Immature Granulocytes % 2.6 % (0-4); Lymphocytes # 1.5 K/mcL (0.6-4.6); Lymphocytes % 15.1 %; Mean Corpuscular Hemoglobin 30.6 pg (28.0-33.3); Mean Corpuscular Volume 98.8 fL (83.0-100.0); Mean Platelet Volume 10.2 fL (9.4-12.4); Monocytes # 0.9 K/mcL (0.0-1.3); Monocytes % 9.1 %; Nucleated Red Blood Cells 0.2 /100 WBC (0); Platelet Count 252 K/mcL (140-400); Red Blood Count 4.12 M/mcL (3.82-4.97); Red Cell Distribution Width 13.6 % (11.5-14.5); Segmented Neutrophils % 72.4 %
[2017-09-26 06:46] LABS: Alanine Aminotransferase 32 Units/L (7-52); Albumin/Globulin Ratio 1.4 (1.1-2.2); Alkaline Phosphatase 86 Units/L (34-104); Aspartate Amino Transferase 49 Units/L (13-39); BUN/Creatinine Ratio 32 (6-26); Bilirubin,Total 0.4 mg/dL (0.3-1.0); Blood Urea Nitrogen 25 mg/dL (8-23); Calcium 8.9 mg/dL (8.6-10.3); Carbon Dioxide 40 mEq/L (23-29); Chloride 97 mEq/L (98-107); Globulin 2.2 g/dL (2.4-3.5); Glucose 217 mg/dL (70-105); Osmolality,Calculated 303 (280-300); Potassium 3.3 mEq/L (3.5-5.1); Sodium 141 mEq/L (136-145); Total Protein 5.2 g/dL (6.4-8.9); eGFR For African Americans > 60 (> 60); eGFR For Non-African Americans > 60 (> 60)
[2017-09-26] MEDS ORDERED: predniSONE 20 MG TABLET PO SCH (09:00)
[2017-09-26] MEDS: Multivit/Ca/Min/Fe/FA 1 TAB TABLET PO SCH (09:15)
[2017-09-26] MEDS: Aspirin Enteric Coated 81 MG Tablet PO SCH (09:15)
[2017-09-26] MEDS: Furosemide 20 MG TABLET PO SCH (09:15)
[2017-09-26] MEDS: Metoprolol XL (24 HR) Succ 25 MG TAB.ER.24H PO SCH (09:15)
[2017-09-26] MEDS: Lisinopril 20 MG TABLET PO SCH (09:15)
[2017-09-26] MEDS: levoFLOXacin 750 MG TABLET PO SCH (09:15)
[2017-09-26] MEDS: Nystatin POWDER 30 GM BOTTLE TP SCH (09:15)
[2017-09-26] MEDS: Insulin DETEMIR 100 UNIT/ML X5UNITS SQ SCH (09:16)
[2017-09-26] MEDS: Insulin LISPRO 300 UNITS/3 ML VIAL SQ SCH ×2 (09:16→12:19)
[2017-09-26] MEDS: traMADol 50 MG TABLET PO PRN ×2 (09:24→15:43)
[2017-09-26 12:00] VITALS: BP 100/63
[2017-09-26] MEDS: (Mirabegron [Myrbetriq] 50 MG) PO SCH (12:17)
--- NOTE | 2017-09-26 14:49 | Discharge Summary ---
<Rush Marina - Last Filed: 09/26/17 15:39> - NOTES TO OUTPATIENT PROVIDER Notes to Outpatient Provider: The patient presented in acute decompensated COPD , profoundly hypoxic in 60%s. ABG showed acute hypercarbic hypoxic respiratory failure. Treated with Abx and steroids however developed severe hyperglycemia requiring use of insulin drip. Now under control, patient has improved. Discharged on O2 and BiPAP Date of Encounter: 09/26/17 Time of Encounter: 14:05 - Discharge Diagnosis (1) Acute and chronic respiratory failure Priority: Primary Status: Acute Assessment and Plan: ABG revealed improving hypercapnia and hypoxemia Qualifiers: Respiratory failure complication: hypoxia and hypercapnia Qualified Code(s) : J96.21 - Acute and chronic respiratory failure with hypoxia; J96.22 - Acute and chronic respiratory failure with hypercapnia (2) COPD exacerbation Priority: Secondary Status: Acute Assessment and Plan: Continues to improve On 4 lpm O2, which is regular home level prednisone 40mg qd po with long taper Continue levaquin for total 10 day course Plan for pulmonary follow up after discharge. no inpatient consult necessary at this time. 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 transplanted heart: [place] heart Associated angina: without angina Qualified Code(s): I25.10 - Atherosclerotic heart disease of [place] coronary artery without angina pectoris (5) MALLORY (obstructive sleep apnea) Priority: Secondary Status: Chronic Assessment and Plan: Pt qualified for BiPAP. Use BiPap during any and all sleep times. Patient failed CPAP (6) Morbid obesity Priority: Secondary Status: Chronic Assessment and Plan: Hx of morbid obesity. BMI currently 53.2 and 158.757 kg. (7) Hypothyroidism Priority: Secondary Status: Chronic Assessment and Plan: Continue home dose Synthroid Qualifiers: Hypothyroidism type: acquired Qualified Code(s): E03.9 - Hypothyroidism, unspecified (8) Atrial fibrillation Priority: Secondary Status: Chronic Assessment and Plan: Continue home medication of metoprolol, and monitor rate. Qualifiers: Atrial fibrillation type: chronic Qualified Code(s): I48.2 - Chronic atrial fibrillation (9) Elevated troponin Priority: Secondary Status: Acute Assessment and Plan: Likely due to demand ischemia from COPD exacerbation and afib. (10) HTN (hypertension) Priority: Secondary Status: Chronic Assessment and Plan: Continue home meds Qualifiers: Hypertension type: essential hypertension Qualified Code(s): I10 - Essential (primary) hypertension (11) HLD (hyperlipidemia) Priority: Secondary Status: Chronic Assessment and Plan: pt hx of hypercholesterolemia Continue home dose Lipitor Qualifiers: Hyperlipidemia type: mixed hyperlipidemia Qualified Code(s): E78.2 - Mixed hyperlipidemia (12) Hypokalemia Priority: Secondary Status: Resolved Assessment and Plan: Continue daily potassium replacement (13) Abdominal pain Priority: Secondary Status: Acute Assessment and Plan: Pt states tightness has improved and is only associated with eating too much during meals CT on 09/22 revealed stable Right renal mass, and left adrenal mass. No evidence of acute abnormalities Qualifiers: Abdominal location: right lower quadrant Qualified Code(s): R10.31 - Right lower quadrant pain Hospital course: Mrs. Em is a 76-year-old female who was admitted for shortness of breath and COPD exacerbation. She has a history of arthritis, atrial fibrillation, uterine and kidney cancer, CAD, diabetes, HLD, hypertension, [place] in 2017 with 2 stents, and renal disease. She is severely obese and likely suffers from hypoventilation. Upon presentation the patient was started on antibiotics and high dose steroids which helped to lonny the symptoms, however she then developed markedly elevated glucose which was difficult to control. We continued to monitor, and we eventually started an insulin drip which was able to regain control of her glucose. She continued to improve, and is now medically clear to go home with BiPAP and Home health. For more detailed information regarding hospital course and post-discharge planning, please see individual assessment and plans. Discharge discussed with: patient, family, nurse, social work, case management, medical social consultant - Time Spent with Patient Total time spent providing and/or coordinating discharge services: Greater than 30 minutes - Discharge Medications Prescriptions: levoFLOXacin [Levaquin] 750 mg PO DAILY #4 tablet predniSONE [PredniSONE] 10 mg PO DAILY #40 tablet Home Medications: Aspirin Enteric Coated [Aspirin EC] 81 mg PO DAILY #30 tablet.dr 12/20/14 [Rx] Levothyroxine [Synthroid] 175 mcg PO DAILY 01/23/15 [History] Duloxetine HCl 60 mg PO DAILY 04/26/16 [History] Albuterol Sulfate [Albuterol Inhaler] 2 puff IH Q4HR PRN #4 hfa.aer.ad 04/28/16 [Rx] Multivitamin [One Daily Essential] 1 tab PO DAILY 09/23/16 [History] Oxygen 3 l NS CONT 09/23/16 [History] Atorvastatin Calcium [Lipitor] 80 mg PO HS 05/11/17 [History] Metoprolol Succinate [Toprol Xl] 25 mg PO DAILY 05/11/17 [History] Mirabegron [Myrbetriq] 50 mg PO DAILY 05/11/17 [History] Acetaminophen [Tylenol] 650 mg PO Q6HR PRN tablet 05/19/17 [Rx] Docusate [Colace] 100 mg PO BID PRN capsule 05/19/17 [Rx] Nystatin POWDER [Nystop] 1 appl TP BID bottle 05/19/17 [Rx] Polyethylene Glycol 3350 [MiraLAX] 17 gm PO DAILY powd.pack 05/19/17 [Rx] Potassium Chloride 10 meq PO DAILY #30 tab.er.prt 06/02/17 [Rx] Furosemide [Lasix] 20 mg PO DAILY 09/21/17 [History] Insulin DETEMIR [Levemir] 30 unit SQ BID 09/21/17 [History] Insulin LISPRO [HumaLOG] 0 units SQ TIDAC PRN 09/21/17 [History] Lisinopril [Zestril] 20 mg PO DAILY 09/21/17 [History] levoFLOXacin [Levaquin] 750 mg PO DAILY #4 tablet 09/26/17 [Rx] predniSONE [PredniSONE] 10 mg PO DAILY #40 tablet 09/26/17 [Rx] Allergies/Adverse Reactions: 3 Allergy/AdvReac Type Severity Reaction Status Date / Time hydrocodone [From Vicodin] AdvReac Nausea Verified 09/22/16 17:03 metformin [From Glucophage] AdvReac Diarrhea Verified 01/23/15 09:38 Date of admission: 09/21/17 13:29 Primary care physician: Corinne Mullins, Consults: 09/21/17 14:58 Consult to Nutrition [CONS] Routine Comment: Consulting Provider: NUTRITION Reason for Dietary Consult: MST Score Discharging clinician: Rush Marina Anticipated date of discharge: 09/26/17 - Constitutional Vitals: Temp Pulse Resp BP Pulse Ox 97.9 F 100 15 100/63 92 09/26/17 11:56 09/26/17 11:56 09/26/17 11:56 09/26/17 11:56 09/26/17 11:56 General appearance: Present: cooperative, A&O X 3, morbidly obese, pleasant, severe distress (Respiratory), answers questions appropriately Exam: Head: Atraumatic, normocephalic Eyes: PERRL, EOMI, conjunctiva pink, sclera anicteric Respiratory: Clear to auscultation bilaterally. No labored breathing. On 4lmp O2 which is home dose. No wheezes, rales, or rhonchi noted. Heart: Irregular rhythm. +S2. No murmur, gallop, clicks or rubs noted. GI: Abdomen soft, nontender, non-distended, with normoactive bowel sounds. Extremities: Warm, radial pulses palpable and symmetrical. No cyanosis or edema noted. TTP of LEs consistent pt's history of diabetic neuropathy. Neuro: Alert and oriented 3, no focal deficits, no speech difficulty. Skin: Warm, dry, intact. - Patient Status Disposition: Home Health Service Condition: Fair Functional capacity at discharge: bed bound Overall status at discharge: patient is back to baseline - Discharge Instructions Instructions: Prednisone (By mouth), Levofloxacin (By mouth), Diabetes Mellitus Type 2 in Adults (DC), Chronic Obstructive Pulmonary Disease (DC), Chronic Hypertension (DC) Follow Up With: Corinne Mullins CNP [Primary Care Provider] - 09/30/17 2:15 pm Forms: ED Satisfaction Letter Additional Instructions: Follow-up with primary care within 1 week. Continue prednisone taper as described in prescription. Continue levaquin for total of 10 day course. Use BiPAP and O2 as directed during all sleep activity. You may experience a small dry cough for up to 6 weeks following completion of treatment. Limit added sugar content and limit carbohydrate intake. Return to the ED for recurrent symptoms, chest pains, shortness of breath or high fevers. - Diet and Activity Activity: wear oxygen at night Diet: diabetic diet, low salt diet <Kwabena Shaw - Last Filed: 09/26/17 17:33> Date of Encounter: 09/26/17 - Discharge Diagnosis (1) Diabetes Status: Chronic Qualifiers: Diabetes mellitus type: type 2 Diabetes mellitus intermediate insulin use: with intermediate use Diabetes mellitus complication status: with neurologic complications Diabetes mellitus complication detail: with polyneuropathy Qualified Code(s): E11.42 - Type 2 diabetes mellitus with diabetic polyneuropathy; Z79.4 - retirement (current) use of insulin (2) CAD (coronary artery disease) Status: Chronic Qualifiers: Coronary Disease-Associated Artery/Lesion type: [place] artery [place] vs. transplanted heart: [place] heart Associated angina: without angina Qualified Code(s): I25.10 - Atherosclerotic heart disease of [place] coronary artery without angina pectoris (3) MALLORY (obstructive sleep apnea) Status: Chronic (4) Morbid obesity Status: Chronic (5) Acute and chronic respiratory failure Status: Acute Qualifiers: Respiratory failure complication: hypoxia and hypercapnia Qualified Code(s) : J96.21 - Acute and chronic respiratory failure with hypoxia; J96.22 - Acute and chronic respiratory failure with hypercapnia (6) Hypothyroidism Status: Chronic Qualifiers: Hypothyroidism type: acquired Qualified Code(s): E03.9 - Hypothyroidism, unspecified (7) COPD exacerbation Status: Acute (8) Atrial fibrillation Status: Chronic Qualifiers: Atrial fibrillation type: chronic Qualified Code(s): I48.2 - Chronic atrial fibrillation (9) Elevated troponin Status: Acute (10) HTN (hypertension) Status: Chronic Qualifiers: Hypertension type: essential hypertension Qualified Code(s): I10 - Essential (primary) hypertension (11) HLD (hyperlipidemia) Status: Chronic Qualifiers: Hyperlipidemia type: mixed hyperlipidemia Qualified Code(s): E78.2 - Mixed hyperlipidemia (12) Hypokalemia Status: Resolved (13) Abdominal pain Status: Acute Qualifiers: Abdominal location: right lower quadrant Qualified Code(s): R10.31 - Right lower quadrant pain Hospital course: Ms. Em is a 76 year old female - Time Spent with Patient Total time spent providing and/or coordinating discharge services: 37min Date of admission: 09/21/17 13:29 Primary care physician: Corinne Mullins, Consults: 09/21/17 14:58 Consult to Nutrition [CONS] Routine Comment: Consulting Provider: NUTRITION Reason for Dietary Consult: MST Score - Constitutional Vitals: Temp Pulse Resp BP Pulse Ox 97.9 F 100 18 100/63 97 09/26/17 11:56 09/26/17 11:56 09/26/17 15:27 09/26/17 11:56 09/26/17 15:27 - Attending Attestation I examined this patient and my medical decision-making was reviewed with the Resident Physician 09/26/17. I agree with the documented findings, disposition and treatment plan as described except to the extent set forth below. Ms Em has been admitted for acute exac COPD. She has qualified for bipap here. She had significant issues with hyperglycemia due to her steroids. She spent a night on insulin drip with improvement. Today she is afebrile and ready for discharge home. Exam Alert Comfortable Mucus membranes dry Heart distant No wheeze Plan D/C home today
--- NOTE | 2017-09-26 15:07 | Physician Discharge Referral ---
Home Health/Hosp Referral Info Transfer to: Home Health Attending Provider: Kwabena Shaw DO Provider in Charge Post Discharge: PCP - Diagnosis (1) Acute and chronic respiratory failure Priority: Primary Status: Acute (2) COPD exacerbation Priority: Primary Status: Acute (3) Diabetes Priority: Secondary Status: Chronic (4) Hypoxemia Priority: Secondary Status: Resolved (5) CAD (coronary artery disease) Priority: Secondary Status: Chronic (6) MALLORY (obstructive sleep apnea) Priority: Secondary Status: Chronic (7) Morbid obesity Priority: Secondary Status: Chronic (8) Hypothyroidism Priority: Secondary Status: Chronic (9) Atrial fibrillation Priority: Secondary Status: Chronic (10) Elevated troponin Priority: Secondary Status: Acute (11) HTN (hypertension) Priority: Secondary Status: Chronic (12) HLD (hyperlipidemia) Priority: Secondary Status: Chronic (13) Hypokalemia Priority: Secondary Status: Resolved (14) Choking Priority: Secondary Status: Chronic (15) Hx of fall Priority: Secondary Status: Chronic (16) Abdominal pain Priority: Secondary Status: Acute - Respiratory Orders Oxygen / L per min (titrate to SPO2 >88%), None (BiPAP while sleeping) Smoking Cessation: Smoking cessation has been advised. For more information, call the [place] Tobacco Quit Line at 5-760-MKPY-NOW. - Diet/Nutrition Diet/Nutrition Orders: No Added Salt (MARILOU), No Concentrated Sweets - Activity Activity Orders: Bedrest - Services Needed Following services are medically necessary services: Nursing, Home Health Aide, Physical Therapy, Occupational Therapy - Transfer Medications Prescriptions: levoFLOXacin [Levaquin] 750 mg PO DAILY #4 tablet predniSONE [PredniSONE] 10 mg PO DAILY #40 tablet Home Medications: Aspirin Enteric Coated [Aspirin EC] 81 mg PO DAILY #30 tablet. 12/20/14 [Rx] Levothyroxine [Synthroid] 175 mcg PO DAILY 01/23/15 [History] Duloxetine HCl 60 mg PO DAILY 04/26/16 [History] Albuterol Sulfate [Albuterol Inhaler] 2 puff IH Q4HR PRN #4 hfa.aer.ad 04/28/16 [Rx] Multivitamin [One Daily Essential] 1 tab PO DAILY 09/23/16 [History] Oxygen 3 l NS CONT 09/23/16 [History] Atorvastatin Calcium [Lipitor] 80 mg PO HS 05/11/17 [History] Metoprolol Succinate [Toprol Xl] 25 mg PO DAILY 05/11/17 [History] Mirabegron [Myrbetriq] 50 mg PO DAILY 05/11/17 [History] Acetaminophen [Tylenol] 650 mg PO Q6HR PRN tablet 05/19/17 [Rx] Docusate [Colace] 100 mg PO BID PRN capsule 05/19/17 [Rx] Nystatin POWDER [Nystop] 1 appl TP BID bottle 05/19/17 [Rx] Polyethylene Glycol 3350 [MiraLAX] 17 gm PO DAILY powd.pack 05/19/17 [Rx] Potassium Chloride 10 meq PO DAILY #30 tab.er.prt 06/02/17 [Rx] Furosemide [Lasix] 20 mg PO DAILY 09/21/17 [History] Insulin DETEMIR [Levemir] 30 unit SQ BID 09/21/17 [History] Insulin LISPRO [HumaLOG] 0 units SQ TIDAC PRN 09/21/17 [History] Lisinopril [Zestril] 20 mg PO DAILY 09/21/17 [History] levoFLOXacin [Levaquin] 750 mg PO DAILY #4 tablet 09/26/17 [Rx] predniSONE [PredniSONE] 10 mg PO DAILY #40 tablet 09/26/17 [Rx] Allergies/Adverse Reactions: 3 Allergy/AdvReac Type Severity Reaction Status Date / Time hydrocodone [From Vicodin] AdvReac Nausea Verified 09/22/16 17:03 metformin [From Glucophage] AdvReac Diarrhea Verified 01/23/15 09:38 Certification: Further, I certify that my clinical findings support that this patient is homebound (i.e. absences from home require considerable and taxing effort and are for medical reasons or catholic services or infrequently or short duration when for other reasons) because: Homebound Reason: Patient requires assistance of a person or device to safely leave home, Absences from home are contraindicated except to recieve medical care, Leaving home requires considerable and taxing effort due to condition, Severity of cardiac or pulmonary status limits activity tolerance Attestation: My signature below is to certify that this patient is under my care and that I, or nurse practitioner, or a physician's wet process assistant head miller working with me, has a face-to -face encounter with this patient.
== END 2017-09-26 16:20 | disposition home health service (06) | DRG 190 ==
LOC: 2NENU 11:38 → EMEROO 11:38 → SUATTDRO 13:29 → 2NENU 14:14
PROVIDERS: ADMIT Student in an Organized Health Care Education/Training Program; ATTEND Internal Medicine

== ENCOUNTER 2018-07-19 09:57 | Inpatient (IN) ==
[2018-07-19] MEDS ORDERED: Ipratropium/Albuterol Neb 3 ML IH ONE (10:25)
[2018-07-19 10:55] LABS: ABG Base Excess 13 mEq/L (-2 to 3); ABG HCO3 42 mEq/L (21-27); ABG Oxygen Saturation 96 % (95-98); ABG PCO2 73 mmHg (35-45); ABG PH 7.37 pH Units (7.32-7.45); ABG PO2 91 mmHg (85-104); ABG TCO2 44 mEq/L (20-26)
--- NOTE | 2018-07-19 11:00 | Emergency Department Note ---
Disposition Clinical Impression: Acute exacerbation of chronic obstructive airways disease Disposition: Admitted As Inpatient Condition: Good Referrals: Corinne Mullins BUILDING AND CONSTRUCTION MANAGER [Primary Care Provider] - Forms: ED Satisfaction Letter Time of Disposition: 12:19 SOB HPI - General Chief Complaint: ED Shortness of Breath/Dyspnea Stated Complaint: SOB Time Seen by Provider: 07/19/18 10:14 Source: patient, EMS Limitations: physical limitation - History of Present Illness Patient 77-year-old female presents to emergency department with chief complaint of shortness of breath. Patient reports she has prior history of COPD and is on BiPAP at night and 4 L nasal cannula oxygen throughout the day. The patient states that lately for the last 2 days when she sleeps with her BiPAP she has no difficulty but throughout the day when she is just on nasal cannula oxygen she is finding herself and shortness of breath and has had to increase her oxygen 5 L. Patient states it feels as though whenever she has a exacerbation of her COPD in the past. The patient is here today she has been wheezing more than normal. The patient was told that she has to avoid using steroids due to issues with blood sugar control. Pt Subjective Complaint: shortness of breath - Related Data Home Medications Medication Instructions Recorded Confirmed Levothyroxine [Synthroid] 175 mcg PO DAILY 01/23/15 09/21/17 Duloxetine HCl 60 mg PO DAILY 04/26/16 09/21/17 Multivitamin [One Daily Essential] 1 tab PO DAILY 09/23/16 09/21/17 Oxygen 3 l NS CONT 09/23/16 09/21/17 Atorvastatin Calcium [Lipitor] 80 mg PO HS 05/11/17 09/21/17 Metoprolol Succinate [Toprol Xl] 25 mg PO DAILY 05/11/17 09/21/17 Mirabegron [Myrbetriq] 50 mg PO DAILY 05/11/17 09/21/17 Furosemide [Lasix] 20 mg PO DAILY 09/21/17 09/21/17 Insulin DETEMIR [Levemir] 30 unit SQ BID 09/21/17 09/21/17 Insulin LISPRO [HumaLOG] 0 units SQ TIDAC PRN 09/21/17 09/21/17 Lisinopril [Zestril] 20 mg PO DAILY 09/21/17 09/21/17 Previous Rx's Medication Instructions Recorded Aspirin Enteric Coated [Aspirin EC] 81 mg PO DAILY #30 tablet.dr 12/20/14 Albuterol Sulfate [Albuterol 2 puff IH Q4HR PRN #4 hfa.aer.ad 04/28/16 Inhaler] Acetaminophen [Tylenol] 650 mg PO Q6HR PRN tablet 05/19/17 Docusate [Colace] 100 mg PO BID PRN capsule 05/19/17 Nystatin POWDER [Nystop] 1 appl TP BID bottle 05/19/17 Polyethylene Glycol 3350 [MiraLAX] 17 gm PO DAILY powd.pack 05/19/17 Potassium Chloride 10 meq PO DAILY #30 tab.er.prt 06/02/17 levoFLOXacin [Levaquin] 750 mg PO DAILY #4 tablet 09/26/17 predniSONE [PredniSONE] 10 mg PO DAILY #40 tablet 09/26/17 Allergies Allergy/AdvReac Type Severity Reaction Status Date / Time hydrocodone [From Vicodin] AdvReac Nausea Verified 09/22/16 17:03 metformin [From Glucophage] AdvReac Diarrhea Verified 01/23/15 09:38 All systems ED: reviewed and negative except as stated. Past Medical History - Past Medical History Attestation: Yes The following information was validated with the patient. Medical history: Reports: arthritis, atrial fibrillation, cancer, CHF, COPD, co ronary artery disease, diabetes, hyperlipidemia, hypertension, myocardial infarction, renal disease Surgical history: Reports: angioplasty/stent (x2), appendectomy, cancer surgery (Uterine cancer resulting in total hysterectomy. 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 Morbidly obese Head: Normocephalic/atraumatic Eyes:PERRLA, EOMI, no conjunctivitis Nares: Without d/c. Ears: No erythema or d/c noted. Oralpharnyx: P&MMM noted, Neck: Supple, no JVD or ROUND CUTTER OPERATOR noted. Cardovascular: regular rate and rhythm without murmur, brisk capillary refill, no peripheral edema. Lungs: Scattered wheezes bilaterally, non-labored Abd: Soft nontender, Non Distended, no guarding, no rebound. : Defered Extremities: moves all extremities equally Neuro: AOx3, no obvious gross neuro deficit Psych: Normal Affect Derm: No rash noted - General Limitations: physical limitation General appearance: alert Course Vital Signs Temperature 98.7 F 07/19/18 10:02 Pulse Rate 110 07/19/18 10:02 Respiratory Rate 21 07/19/18 10:02 Blood Pressure 140/71 07/19/18 10:02 O2 Sat by Pulse Oximetry 99 07/19/18 10:02 Temperature 98.7 F 07/19/18 10:02 Pulse Rate 107 07/19/18 12:00 Respiratory Rate 22 07/19/18 12:00 Blood Pressure 113/67 07/19/18 12:00 O2 Sat by Pulse Oximetry 99 07/19/18 12:00 Oxygen Delivery Oxygen Delivery Nasal Cannula Shortness of Breath/Dyspnea - Lab Data Result diagrams: 07/19/18 11:07 07/19/18 11:07 Lab Results 07/19/18 07/19/18 07/19/18 Range/Units 10:50 11:07 11:07 WBC 9.2 (4.3-11.1) K/mcL RBC 3.56 L (3.82-4.97) M/mcL Hgb 11.9 (11.5-15.4) g/dL Hct 39.2 (35.3-44.9) % MCV 110.1 H (83.0-100.0) fL MCH 33.4 H (28.0-33.3) pg MCHC 30.4 L (31.6-35.5) g/dL RDW 16.4 H (11.5-14.5) % Plt Count 262 (140-400) K/mcL MPV 8.9 L (9.4-12.4) fL Immature Gran % 4.3 H (0-4) % Seg Neutrophils % 65.0 % Lymphocytes % 13.3 % Monocytes % 9.9 % Eosinophils % 6.1 % Basophils % 1.4 % Neutrophils # 6.0 (1.6-8.9) K/mcL Lymphocytes # 1.2 (0.6-4.6) K/mcL Monocytes # 0.9 (0.0-1.3) K/mcL Eosinophils # 0.6 (0.0-0.6) K/mcL Basophils # 0.1 (0.0-0.2) K/mcL Platelet Estimate Normal (Normal) Anisocytosis 1+ A (Not Present) Macrocytosis Present A (Not Present) PT (9.4-12.1) Seconds INR APTT (26.0-36.0) Seconds ABG pH 7.37 (7.32-7.45) pH Units ABG pCO2 73 H* (35-45) mmHg ABG pO2 91 (85-104) mmHg ABG HCO3 42 H (21-27) mEq/L ABG Total CO2 44 H (20-26) mEq/L ABG O2 Saturation 96 (95-98) % ABG Base Excess 13 H (-2 to 3) mEq/L O2 Delivery Device Cannula Inspired O2 2.0 (1-15=lpm [id number]=%) Sodium 143 (136-145) mEq/L Potassium 3.9 (3.5-5.1) mEq/L Chloride 97 L (98-107) mEq/L Carbon Dioxide 40 H* (23-29) mEq/L BUN 35 H (8-23) mg/dL Creatinine 1.00 (0.60-1.20) mg/dL Est GFR ( Amer) > 60 (> 60) Est GFR (Non-Af Amer) 54 L (> 60) BUN/Creatinine Ratio 35 H (6-26) Glucose 311 H (70-105) mg/dL Calculated Osmolality 316 H (280-300) Lactic Acid (0.5-2.2) mmol/L Calcium 9.8 (8.6-10.3) mg/dL Total Bilirubin 0.4 (0.3-1.0) mg/dL Direct Bilirubin 0.1 (0.0-0.2) mg/dL Indirect Bilirubin 0.3 (0.0-1.2) mg/dL AST 17 (13-39) Units/L ALT 29 (7-52) Units/L Alkaline Phosphatase 110 H (34-104) Units/L Troponin I < 0.03 (< 0.04) ng/mL B-Natriuretic Peptide (Less than 100) pg/mL Serum Total Protein 5.6 L (6.4-8.9) g/dL Albumin 3.3 L (3.5-5.7) g/dL Globulin 2.3 L (2.4-3.5) g/dL Albumin/Globulin Ratio 1.4 (1.1-2.2) Person Notif of Ana Cristina PIERCE 07/19/18 07/19/18 07/19/18 Range/Units 11:07 11:07 11:07 WBC (4.3-11.1) K/mcL RBC (3.82-4.97) M/mcL Hgb (11.5-15.4) g/dL Hct (35.3-44.9) % MCV (83.0-100.0) fL MCH (28.0-33.3) pg MCHC (31.6-35.5) g/dL RDW (11.5-14.5) % Plt Count (140-400) K/mcL MPV (9.4-12.4) fL Immature Gran % (0-4) % Seg Neutrophils % % Lymphocytes % % Monocytes % % Eosinophils % % Basophils % % Neutrophils # (1.6-8.9) K/mcL Lymphocytes # (0.6-4.6) K/mcL Monocytes # (0.0-1.3) K/mcL Eosinophils # (0.0-0.6) K/mcL Basophils # (0.0-0.2) K/mcL Platelet Estimate (Normal) Anisocytosis (Not Present) Macrocytosis (Not Present) PT 15.8 H (9.4-12.1) Seconds INR 1.4 APTT 30.9 (26.0-36.0) Seconds ABG pH (7.32-7.45) pH Units ABG pCO2 (35-45) mmHg ABG pO2 (85-104) mmHg ABG HCO3 (21-27) mEq/L ABG Total CO2 (20-26) mEq/L ABG O2 Saturation (95-98) % ABG Base Excess (-2 to 3) mEq/L O2 Delivery Device Inspired O2 (1-15=lpm [id number]=%) Sodium (136-145) mEq/L Potassium (3.5-5.1) mEq/L Chloride (98-107) mEq/L Carbon Dioxide (23-29) mEq/L BUN (8-23) mg/dL Creatinine (0.60-1.20) mg/dL Est GFR ( Amer) (> 60) Est GFR (Non-Af Amer) (> 60) BUN/Creatinine Ratio (6-26) Glucose (70-105) mg/dL Calculated Osmolality (280-300) Lactic Acid 2.2 (0.5-2.2) mmol/L Calcium (8.6-10.3) mg/dL Total Bilirubin (0.3-1.0) mg/dL Direct Bilirubin (0.0-0.2) mg/dL Indirect Bilirubin (0.0-1.2) mg/dL AST (13-39) Units/L ALT (7-52) Units/L Alkaline Phosphatase (34-104) Units/L Troponin I (< 0.04) ng/mL B-Natriuretic Peptide 43 (Less than 100) pg/mL Serum Total Protein (6.4-8.9) g/dL Albumin (3.5-5.7) g/dL Globulin (2.4-3.5) g/dL Albumin/Globulin Ratio (1.1-2.2) Person Notif of Crit
[2018-07-19 11:30] LABS: Basophils # 0.1 K/mcL (0.0-0.2); Basophils % 1.4 %; Eosinophils # 0.6 K/mcL (0.0-0.6); Eosinophils % 6.1 %; Hematocrit 39.2 % (35.3-44.9); Hemoglobin 11.9 g/dL (11.5-15.4); Immature Granulocytes % 4.3 % (0-4); Lymphocytes # 1.2 K/mcL (0.6-4.6); Lymphocytes % 13.3 %; Mean Corpuscular HGB Conc 30.4 g/dL (31.6-35.5); Mean Corpuscular Hemoglobin 33.4 pg (28.0-33.3); Mean Corpuscular Volume 110.1 fL (83.0-100.0); Mean Platelet Volume 8.9 fL (9.4-12.4); Monocytes # 0.9 K/mcL (0.0-1.3); Monocytes % 9.9 %; Platelet Count 262 K/mcL (140-400); Red Blood Count 3.56 M/mcL (3.82-4.97); Red Cell Distribution Width 16.4 % (11.5-14.5)
[2018-07-19 11:32] LABS: Platelet Estimate Normal (Normal)
[2018-07-19 11:33] LABS: Anisocytosis 1+ (Not Present); Macrocytosis Present (Not Present)
[2018-07-19 11:38] LABS: INR 1.4; Prothrombin Time 15.8 Seconds (9.4-12.1)
[2018-07-19 11:41] LABS: Activated Partial Thrombo Time 30.9 Seconds (26.0-36.0)
[2018-07-19 11:51] LABS: Alanine Aminotransferase 29 Units/L (7-52); Albumin 3.3 g/dL (3.5-5.7); Albumin/Globulin Ratio 1.4 (1.1-2.2); Alkaline Phosphatase 110 Units/L (34-104); Aspartate Amino Transferase 17 Units/L (13-39); BUN/Creatinine Ratio 35 (6-26); Bilirubin,Direct 0.1 mg/dL (0.0-0.2); Bilirubin,Indirect 0.3 mg/dL (0.0-1.2); Bilirubin,Total 0.4 mg/dL (0.3-1.0); Blood Urea Nitrogen 35 mg/dL (8-23); Calcium 9.8 mg/dL (8.6-10.3); Carbon Dioxide 40 mEq/L (23-29); Chloride 97 mEq/L (98-107); Globulin 2.3 g/dL (2.4-3.5); Glucose 311 mg/dL (70-105); Osmolality,Calculated 316 (280-300); Potassium 3.9 mEq/L (3.5-5.1); Sodium 143 mEq/L (136-145); Total Protein 5.6 g/dL (6.4-8.9); Troponin I < 0.03 ng/mL (< 0.04); eGFR For Non-African Americans 54 (> 60)
[2018-07-19 12:22] LABS: Bilirubin,Urine Negative (Negative); Blood,Urine Large (Negative); Clarity,Urine Turbid (Clear); Glucose,Urine (UA) Normal (Normal); Ketones,Urine Negative (Negative); Leukocyte Esterase,Urine Large (Negative); Nitrite,Urine Negative (Negative); Protein,Urine 30 mg/dL (Neg-Trace); Specific Gravity,Urine 1.009 (1.010-1.025); Urobilinogen,Urine Normal (Normal)
[2018-07-19 12:24] LABS: Bacteria,Urine Many per hpf (None-Few); RBC,Urine TNTC per hpf (0-3); Squamous Epithelial Cell,Urine Many per lpf (None-Few); WBC,Urine TNTC per hpf (0-3)
[2018-07-19 12:25] LABS: Color,Urine Pink (Yellow)
--- NOTE | 2018-07-19 14:27 | Internal Med History&Physical ---
<ClaudiaMatt - Last Filed: 07/19/18 16:11> Date of Encounter: 07/19/18 Time of Encounter: 14:25 Internal Medicine - H&P: HPI Chief complaint: SOB Admitted From: Emergency Dept Plans for Post Hospital Care: Home History of present illness: Ms. Em is a 76 year old female w/PMH of former smoker, arthritis, atrial fibrillation, obesity, uterine and kidney cancer, COPD, CAD, diabetes uncontrolled despite insulin, HLD, HTN, previous myocardial infarction in 2017 requiring 2 stents, and renal disease present with shortness of breath. Patient reports she has prior history of COPD and is on BiPAP at night and 4 L nasal cannula oxygen throughout the day. She has no difficulty with SOB at night because she uses her BIPAP but is dypsneic throughout the day despite 5L O2 via NC. Symptoms are very similar to her previous COPD exacerbations. Admits to wheezing and cough more than usual. Also associated recent dysuria and hematuria. Denies fever, chills, nausea, vomiting, diarrhea. Past Med Surg Social Fam HX - Past Medical History Medical history: arthritis, atrial fibrillation, cancer, CHF, COPD, coronary artery disease, diabetes, hyperlipidemia, hypertension, myocardial infarction, renal disease Additional medical history: kidney and uterine cancer, macular degeneration Psychiatric history: anxiety, depression - Past Surgical History Surgical History: angioplasty/stent (x2), appendectomy, cancer surgery (Uterine cancer resulting in total hysterectomy. Renal cancer resulting in partial removal of kidney.), cataract, cholecystectomy, hysterectomy, orthopedic, other, JUAN/BSO Additional surgical history: partial nephrectomy. Right Shoulder Repair - Social History Smoking Status: Former smoker Smokeless Tobacco Status: No Alcohol use: none Drug use: none - Family History Father Family Member Ethnicity: Non- Living Status: Hx Family Cardiac Disorders: Yes (CT, CAD) Mother Adopted: No Family Member Ethnicity: Non- Living Status: Hx Family Cardiac Disorders: Yes (CT, CAD) Hx Family Respiratory Disorders: No Hx Family Cancer: No Hx Family GI Disorders: No Hx Family Endocrine Disorder: No Hx Family Neuromuscular Disorders: No Hx Family Neurologic Disorders: No Hx Family HEENT Disorders: Yes Hx Family Autoimmune Disorders: No Brother Family Member Ethnicity: Non- Living Status: Hx Family Cardiac Disorders: Yes (CT, CAD) Sister Family Member Ethnicity: Non- Living Status: Hx Family Cancer: Yes (Leukemia) Internal Medicine - H&P: Meds Albuterol Sulfate [Proair Hfa] 2 puff IH Q4H PRN 07/19/18 [History] Aspirin [Adult Aspirin] 81 mg PO DAILY 07/19/18 [History] Diltiazem HCl [Diltiazem 24Hr Cd] 240 mg PO DAILY 07/19/18 [History] Duloxetine HCl [Cymbalta] 60 mg PO HS 07/19/18 [History] Fluticasone Propionate [Flovent Hfa] 2 puff IH BID PRN 07/19/18 [History] Furosemide [Lasix] 40 mg PO BID 07/19/18 [History] Gabapentin [Neurontin] 600 mg PO TID PRN 07/19/18 [History] Insulin DETEMIR [Levemir] 50 unit SQ BID 07/19/18 [History] Insulin LISPRO [HumaLOG] 45 units SQ BID 07/19/18 [History] Ipratropium/Albuterol Neb [Duoneb] 3 ml IH Q6HR PRN 07/19/18 [History] Metoprolol Succinate 100 mg PO DAILY 07/19/18 [History] Multivit-Min/Iron/Folic/Lutein [Centrum Silver Women Tablet] 1 tab PO DAILY 07/19/18 [History] Omeprazole [PriLOSEC] 20 mg PO DAILY PRN 07/19/18 [History] Rivaroxaban [Xarelto] 20 mg PO QPM 07/19/18 [History] Sennosides [Senna] 17.2 mg PO DAILY 07/19/18 [History] Tiotropium Br/Olodaterol HCl [Stiolto Respimat Inhal [place]] 2 puff IH DAILY 07/19/18 [History] Vit A/Vit C/Vit E/Zinc/Copper [Preservision Areds Tablet] 1 tab PO HS 07/19/18 [History] Allergy/AdvReac Type Severity Reaction Status Date / Time hydrocodone [From Vicodin] AdvReac Nausea Verified 07/19/18 13:57 metformin [From Glucophage] AdvReac Diarrhea Verified 07/19/18 13:57 All Systems PM: A 10-system review of systems was performed and is negative for pertinent findings except as documented above in the HPI. - Constitutional Constitutional: as per HPI - EENT Nose, mouth and throat: as per HPI - Cardiovascular Cardiovascular ROS IM: as per HPI - Respiratory Respiratory: as per HPI - Gastrointestinal Gastrointestinal: as per HPI - Genitourinary Genitourinary: as per HPI - Musculoskeletal Musculoskeletal ROS IM: as per HPI - Integumentary Integumentary IM: as per HPI - Constitutional Vitals: Temp Pulse Resp BP Pulse Ox 98.7 F 107 16 110/69 99 07/19/18 10:02 07/19/18 12:00 07/19/18 13:08 07/19/18 13:08 07/19/18 12:00 General appearance: Present: A&O X 3 Exam: General: Alert and oriented Skin:Normal color, no rash, no lesions. HEENT:EOM, pupils equal, round and reactive. Cardiovascular:Normal S1 & S2, no rubs, murmurs or gallops. No JVD. Pulse regular. Lungs: Use of accessory muscles. diffuse severe wheezing bilaterally. No crackles or rales Abdomen:Soft, non-tender, no rigidity. Extremities:BL upper extremity bruising. 2+ pitting edema BL lower extremity Neurological:Normal cognition and motor skills. Pulses:Carotid and radial pulses normal +2. Rest of the physical exam is non contributory - Head Head exam: Present: atraumatic, normocephalic - Eye Eye exam: Present: PERRL, conjuntiva pink, sclera anicteric Pupils: Present: PERRL - Neck Neck exam general surgery: Present: supple, trachea midline. Absent: lymphadeno huang - Respiratory Respiratory exam: Present: wheezes. Absent: accessory muscle use, rales, rhonchi Additional comments: Severe diffuse wheezing - Cardiovascular Cardiovascular exam: Present: RRR, +S1, +S2. Absent: diastolic murmur, gallop, rubs, systolic murmur - GI/Abdominal GI/Abdominal exam: Present: normal bowel sounds, soft, no peritoneal signs. Absent: distended, tenderness - Extremities Exam Extremities exam: Present: pedal edema, warm, radial pulses palpable and symmetrical. Absent: calf tenderness, cyanotic Additional comments: 2+ bilateral LE edema - Neurological Exam Neurological exam: Present: CN II-XII intact, oriented X3, no focal deficits. Absent: pronater drift, facial droop, speech deficit - Skin Skin exam: Present: dry, intact Internal Med - H&P Results - Labs CBC & Chem 7: 07/19/18 11:07 07/19/18 11:07 Labs: Short CBC 07/19/18 Range/Units 11:07 WBC 9.2 (4.3-11.1) K/mcL Hgb 11.9 (11.5-15.4) g/dL Hct 39.2 (35.3-44.9) % Plt Count 262 (140-400) K/mcL Neutrophils # 6.0 (1.6-8.9) K/mcL BMP 07/19/18 11:07 Sodium 143 Potassium 3.9 Chloride 97 L Carbon Dioxide 40 H* BUN 35 H Creatinine 1.00 Glucose 311 H Calcium 9.8 Cardiac Enzymes 07/19/18 Range/Units 11:07 Troponin I < 0.03 (< 0.04) ng/mL Liver Function 07/19/18 Range/Units 11:07 Total Bilirubin 0.4 (0.3-1.0) mg/dL Direct Bilirubin 0.1 (0.0-0.2) mg/dL AST 17 (13-39) Units/L ALT 29 (7-52) Units/L Alkaline Phosphatase 110 H (34-104) Units/L Albumin 3.3 L (3.5-5.7) g/dL Urine 07/19/18 Range/Units 12:10 Urine Color [place] (Yellow) Urine Clarity Turbid A (Clear) Urine pH 6.0 (5.0-8.0) pH Units Ur Specific [place] 1.009 L (1.010-1.025) Urine Protein 30 H (Neg-Trace) mg/dL Urine Glucose (UA) Normal (Normal) mg/dL - ABG Interpretation ABG results: 07/19/18 10:50 ABG pH 7.37 ABG pCO2 73 H* ABG pO2 91 ABG HCO3 42 H ABG Total CO2 44 H ABG O2 Saturation 96 ABG Base Excess 13 H - Impressions ITS Impressions Chest X-Ray 07/19/18 10:25 IMPRESSION: Left hilar fullness may be present, which appears new from prior exam. The differential includes lymphadenopathy and pulmonary arterial dilation. Further evaluation with contrast-enhanced CT of the chest is recommended. D/ / Steven Perez MD / Steven Perez MD Interpreting Provider: Steven Perez MD - Assessment and Plan (1) COPD with acute exacerbation Current Visit: Yes Status: Acute Assessment and plan: 77F with multiple comorbidities presents with worsening SOB. She is on BIPAP at night for MALLORY, chronic 5L O2. Symptomatic at rest, Class IV COPD by GOLD criteria CXR = new left hilar fullness when compared to previous imaging. DDx includes lymphadenopathy and pulmonary arterial dilation. Pending CT chest with contrast EKG without acute changes, troponin negative x 1. Pending Echo Will start patient on Solumedrol 40mg IV TID, Azithromycin, Duoneb as needed. Start Symbicort. O2 as needed for SPO2>90% Continue with BIPAP at night. Mucinex as needed Admit as inpatient (2) Acute on chronic respiratory failure with hypoxia and hypercapnia Current Visit: Yes Status: Acute Assessment and plan: Acute respiratory failure in the setting of COPD exacerbation, possibly CHF exacerbation. Patient is usually on 3L O2 and BIPAP. Now requiring 5L ABG with hypercapnea pH = 7.37, pCO2 73. Repeat ABG in the morning BIPAP as night and continue O2 as needed Treat per COPD and CHF exacerbation. (3) Diastolic CHF, acute on chronic Current Visit: Yes Status: Acute Assessment and plan: Start diuresis with IV lasix. Repeat CHF Continue home meds (4) Diabetes mellitus type 2 in obese Current Visit: Yes Status: Acute Assessment and plan: Chronic known issue. Uncontrolled. high dose SSI (5) CAD (coronary artery disease) Current Visit: No Status: Chronic Assessment and plan: History of CAD with 2 stents. Continue home medications ASA, metoprolol. Start high dose statin Qualifiers: Coronary Disease-Associated Artery/Lesion type: andreafski artery [place] vs. transplanted heart: andreafski heart Associated angina: without angina Qualified Code(s): I25.10 - Atherosclerotic heart disease of andreafski coronary artery without angina pectoris (6) MALLORY (obstructive sleep apnea) Current Visit: No Status: Chronic Assessment and plan: Chronic. Continue BIPAP at night (7) History of uterine cancer Current Visit: Yes Status: Acute (8) History of kidney cancer Current Visit: Yes Status: Acute (9) Abnormal chest xray Current Visit: Yes Status: Acute Assessment and plan: CXR = Left hilar fullness may be present, which appears new from prior exam. The differential includes lymphadenopathy and pulmonary arterial dilation. Pending CT chest with contrast (10) History of atrial fibrillation Current Visit: Yes Status: Acute Assessment and plan: Chronic known issue. No episodes since admission. Reconcile diazepam 240mg PO daily, Xarelto, BB Continuous cafeteria monitor (11) Dysuria Current Visit: Yes Status: Acute Assessment and plan: Patient reports that she was recently discharged from [facility] for UTI. Initial UA appears contaminated. Will repeat UA. OK to continue nystatin. (12) DVT prophylaxis Current Visit: No Status: Acute Assessment and plan: SubQ heparin - Time Spent With Patient Total time spent is greater than 50% in coordination of care (as documented) at patient's floor/unit and/or counseling patient: Greater than 35 minutes <Roseanna Weaver - Last Filed: 07/20/18 08:53> Date of Encounter: 07/19/18 Internal Medicine - H&P: HPI History of present illness: Ms. Em is a 77 year old female All Systems PM: A 10-system review of systems was performed and is negative for pertinent findings except as documented above in the HPI. - Constitutional Vitals: Temp Pulse Resp BP Pulse Ox 97.9 F 88 20 108/47 94 07/19/18 14:30 07/19/18 14:30 07/19/18 14:30 07/19/18 14:30 07/19/18 14:31 Internal Med - H&P Results - Labs CBC & Chem 7: 07/20/18 03:33 07/20/18 03:33 Labs: Short CBC 07/19/18 Range/Units 11:07 WBC 9.2 (4.3-11.1) K/mcL Hgb 11.9 (11.5-15.4) g/dL Hct 39.2 (35.3-44.9) % Plt Count 262 (140-400) K/mcL Neutrophils # 6.0 (1.6-8.9) K/mcL BMP 07/19/18 11:07 Sodium 143 Potassium 3.9 Chloride 97 L Carbon Dioxide 40 H* BUN 35 H Creatinine 1.00 Glucose 311 H Calcium 9.8 Cardiac Enzymes 07/19/18 Range/Units 11:07 Troponin I < 0.03 (< 0.04) ng/mL Liver Function 07/19/18 Range/Units 11:07 Total Bilirubin 0.4 (0.3-1.0) mg/dL Direct Bilirubin 0.1 (0.0-0.2) mg/dL AST 17 (13-39) Units/L ALT 29 (7-52) Units/L Alkaline Phosphatase 110 H (34-104) Units/L Albumin 3.3 L (3.5-5.7) g/dL Urine 07/19/18 Range/Units 12:10 Urine Color [place] (Yellow) Urine Clarity Turbid A (Clear) Urine pH 6.0 (5.0-8.0) pH Units Ur Specific [place] 1.009 L (1.010-1.025) Urine Protein 30 H (Neg-Trace) mg/dL Urine Glucose (UA) Normal (Normal) mg/dL - ABG Interpretation ABG results: 07/19/18 10:50 ABG pH 7.37 ABG pCO2 73 H* ABG pO2 91 ABG HCO3 42 H ABG Total CO2 44 H ABG O2 Saturation 96 ABG Base Excess 13 H - Impressions ITS Impressions Chest X-Ray 07/19/18 10:25 IMPRESSION: Left hilar fullness may be present, which appears new from prior exam. The differential includes lymphadenopathy and pulmonary arterial dilation. Further evaluation with contrast-enhanced CT of the chest is recommended. D/ / Steven Perez MD / Steven Perez MD Interpreting Provider: Steven Perez MD - Time Spent With Patient Total time spent is greater than 50% in coordination of care (as documented) at patient's floor/unit and/or counseling patient: - Attending Attestation I examined this patient and my medical decision-making was reviewed with the Resident Physician Dr. Taylor. I agree with the documented findings, disposition and treatment plan as described except to the extent set forth below. Ms. Em is a 77 y/o F with known PMH of HTN, HLD, Dm2, Morbid obesity with BMI 58, Diastolic CHF, Paroxysmal Afib on Xarelto for anti coag, chronic hypoxic and hyper capneic Respiratory failure, uses BiPAP at home, on 3 lit hoem O2, COPD, and recurrent UTI who recently admitted at [facility] now she presented to ER with progressively worsening shortness of breath, increased his urinary frequency concerning for UTI also noticed hematuria. She happened to have acute on chronic hyper Respiratory failure with Ph: 7.37 PCo2 73 and acute on chronic hypoxic respiratory failure currently on 5 lit oxygen with diffuse wheezing. She denied any cough with expectoration. Her CXR did not show any infiltrates. Gen: A, A, O 3 Chest: Diminished BS b/l, diffuse wheezing, no crackles, no rales, no ronchi Heart: S1S2+ RRR No murmurs Ext: 2+ pitting edema, no calf tenderness Skin: severe excoriation over pelvic area.. no ulcers noticed a/p 1. Acute on chronic hypoxic and hypercapnia resp failure 2. Acute COPD exacerbation 3. Severe hypoventilation syndrome 4. Acute on chronic diastolic CHF exacerbation 5. Volume overload admit the pt into tele started on high dose IV steroids frequent bronchodilators no need of antibiotic cont on BiPAP for now repeat ABG in AM started on IV diuretics will check 2 D Echo in AM 6. Abnormal UA - mostly contaminated repeat UA again 7. Paroxysmal Afib
[2018-07-19] MEDS ORDERED: Isovue-370 500 ML BOTTLE IVP ONE (15:01)
[2018-07-19] MEDS ORDERED: Ipratropium/Albuterol Neb 3 ML IH PRN (15:06)
[2018-07-19] MEDS ORDERED: Azithromycin 500 MG in D5% in Water 250 ML IVPB ONE (15:12)
[2018-07-19] MEDS ORDERED: Dextrose Gel 15 GM/37.5 ML TUBE PO PRN ×2 (15:45)
[2018-07-19] MEDS ORDERED: *HR* Dextrose 50 % in Water (Syg) 50 ML SYRINGE IVP PRN (15:45)
[2018-07-19] MEDS ORDERED: D5% in Water 1,000 ML IVC PRN (15:45)
[2018-07-19] MEDS: MethylPREDNISolone 40 MG/ML VIAL IVP SCH (15:59)
--- NOTE | 2018-07-19 16:26 | Electrocardiograph Report ---
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
[2018-07-19] MEDS: *HR* Rivaroxaban 10 MG TABLET PO SCH (17:21)
[2018-07-19] MEDS: Insulin LISPRO 300 UNITS/3 ML VIAL SQ SCH (17:21)
[2018-07-19] MEDS: Furosemide 40 MG/4 ML VIAL IVP SCH (17:22)
[2018-07-19] MEDS: Metoprolol XL (24 HR) Succ 50 MG TAB.ER.24H PO SCH (17:36)
[2018-07-19] MEDS ORDERED: *HR* Heparin 5,000 UNIT/ML VIAL SQ SCH (18:00)
[2018-07-19] MEDS ORDERED: Perflutren Lipid Microsphere 1.3 ML in 0.9 % Sodium Chloride 8.7 ML IVP ONE (18:02)
[2018-07-19] MEDS ORDERED: Insulin LISPRO 300 UNITS/3 ML VIAL SQ SCH (21:00)
[2018-07-19] MEDS: Budesonide/Formoterol 160/4.5 1 PUFF INH IH SCH (21:37)
[2018-07-20] MEDS: MethylPREDNISolone 40 MG/ML VIAL IVP SCH ×3 (00:15→16:51)
[2018-07-20] MEDS: Nystatin POWDER 30 GM BOTTLE TP SCH ×3 (00:15→22:14)
[2018-07-20 04:19] LABS: Hematocrit 41.5 % (35.3-44.9); Hemoglobin 12.8 g/dL (11.5-15.4); Mean Corpuscular HGB Conc 30.8 g/dL (31.6-35.5); Mean Corpuscular Hemoglobin 33.4 pg (28.0-33.3); Mean Corpuscular Volume 108.4 fL (83.0-100.0); Mean Platelet Volume 9.2 fL (9.4-12.4); Nucleated Red Blood Cells 0.3 /100 WBC (0); Platelet Count 276 K/mcL (140-400); Red Blood Count 3.83 M/mcL (3.82-4.97); Red Cell Distribution Width 15.9 % (11.5-14.5)
[2018-07-20 04:22] LABS: Prothrombin Time 22.6 Seconds (9.4-12.1)
[2018-07-20 04:36] LABS: BUN/Creatinine Ratio 34 (6-26); Blood Urea Nitrogen 33 mg/dL (8-23); Calcium 9.8 mg/dL (8.6-10.3); Carbon Dioxide 39 mEq/L (23-29); Chloride 98 mEq/L (98-107); Glucose 404 mg/dL (70-105); Osmolality,Calculated 312 (280-300); Potassium 4.7 mEq/L (3.5-5.1); Sodium 139 mEq/L (136-145); eGFR For Non-African Americans 56 (> 60)
[2018-07-20 04:49] LABS: ABG Base Excess 16 mEq/L (-2 to 3); ABG HCO3 44 mEq/L (21-27); ABG Oxygen Saturation 98 % (95-98); ABG PCO2 65 mmHg (35-45); ABG PH 7.44 pH Units (7.32-7.45); ABG PO2 105 mmHg (85-104); ABG TCO2 46 mEq/L (20-26); Blood Gas Modality NIV
[2018-07-20 05:08] LABS: Lymphocytes # 0.7 K/mcL (0.6-4.6); Monocytes # 0.2 K/mcL (0.0-1.3); Neutrophils # 10.6 K/mcL (1.6-8.9); Platelet Estimate Normal (Normal)
[2018-07-20] MEDS: Aspirin Enteric Coated 81 MG Tablet PO SCH (07:44)
[2018-07-20] MEDS: Furosemide 40 MG/4 ML VIAL IVP SCH ×2 (07:44→16:51)
[2018-07-20] MEDS: Diltiazem CD (24hr) 240 MG CAPSULE PO SCH (07:44)
[2018-07-20] MEDS: Metoprolol XL (24 HR) Succ 50 MG TAB.ER.24H PO SCH (07:44)
[2018-07-20] MEDS: Sennosides 8.6 MG TABLET PO SCH (07:44)
[2018-07-20] MEDS: Insulin LISPRO 300 UNITS/3 ML VIAL SQ SCH ×4 (07:45→20:48)
[2018-07-20 08:28] LABS: Bilirubin,Urine Negative (Negative); Blood,Urine Large (Negative); Clarity,Urine Turbid (Clear); Color,Urine Red (Yellow); Glucose,Urine (UA) >=1000 mg/dL (Normal); Ketones,Urine Trace mg/dL (Negative); Leukocyte Esterase,Urine Moderate (Negative); Nitrite,Urine Negative (Negative); PH,Urine 5.5 pH Units (5.0-8.0); Protein,Urine 30 mg/dL (Neg-Trace); Specific Gravity,Urine 1.026 (1.010-1.025); Urobilinogen,Urine Normal (Normal)
[2018-07-20 08:31] LABS: Bacteria,Urine Many per hpf (None-Few); Hyaline Casts,Urine Few per lpf (None-Few); RBC,Urine TNTC per hpf (0-3); Squamous Epithelial Cell,Urine Many per lpf (None-Few); WBC,Urine TNTC per hpf (0-3)
[2018-07-20] MEDS ORDERED: Insulin DETEMIR 100 UNIT/ML X5UNITS SQ SCH ×2 (09:00→21:00)
[2018-07-20] MEDS: Budesonide/Formoterol 160/4.5 1 PUFF INH IH SCH ×2 (10:27→19:49)
[2018-07-20] MEDS ORDERED: Insulin LISPRO 300 UNITS/3 ML VIAL SQ SCH ×2 (12:00→17:00)
--- NOTE | 2018-07-20 13:38 | Internal Med Progress Note ---
Hospitalist Progress Note - Encounter Date of Encounter: 07/20/18 Time of Encounter: 13:37 - Subjective Interval History: I have seen and evaluated the patient at bedside. patient admitted for hypercapnic and hypoxemice respiratory failure. she reports improvement in her breathing, reported dysuria and urinary frequency for the past couple of days. denies fever or chills, denies chest pain, reports supra-pubic abdominal discomfort. - Exam Vitals: Temp Pulse Resp BP Pulse Ox 98.0 F 105 22 134/84 97 07/20/18 10:44 07/20/18 10:44 07/20/18 10:44 07/20/18 10:44 07/20/18 10:44 Exam: Vitals: Reviewed. - Assessment and Plan (1) Acute exacerbation of chronic obstructive airways disease Current Visit: Yes Status: Acute Assessment and Plan: no wheezing on auscultation. on 5 litters of o2 by nasal cannula. Plan continue bronchodilators Q4RT scheduled decrease methyl-prednisolone to 40mg/IV BID nocturnal Bipap. incentive spirometry started on levofloxacin 750mg/IV daily for atypical ordered on symbicort (2) COPD with acute exacerbation Current Visit: Yes Status: Acute Assessment and Plan: plan of care as above (3) Diabetes mellitus type 2 in obese Current Visit: Yes Status: Chronic Assessment and Plan: blood sugar sub-optimally controlled. increase levemir to 15 units BID, plus lispro 5 units ac, and lispro medium dose sliding scale. carb controlled diet. (4) Diastolic CHF, acute on chronic Current Visit: Yes Status: Suspected Assessment and Plan: patient negative 325ml during the past 24 hours continue fluid restriction to 1.5 litters a day on furosemide 40mg/IV BID strict intake and output daily weight (5) Dyslipidemia Current Visit: No Status: Chronic Assessment and Plan: on atorvastatin 80mg/PO HS (6) Macrocytosis Current Visit: No Status: Chronic Assessment and Plan: unclear etiology. folate and b12 ordered (7) Atrial fibrillation Current Visit: No Status: Chronic Assessment and Plan: rate controlled on metoprolol and diltiazem. on raxelto 20mg/PO daily for secondary stroke prevention. (8) CAD (coronary artery disease) Current Visit: No Status: Chronic Assessment and Plan: on aspirin 81mg/PO daily (9) HTN (hypertension) Current Visit: No Status: Chronic Assessment and Plan: BP is well controlled on metoprolol and cardizem plus furosemide (10) Morbid obesity Current Visit: No Status: Chronic (11) MALLORY (obstructive sleep apnea) Current Visit: No Status: Chronic Assessment and Plan: nocturnal Bipap. (12) UTI (urinary tract infection) Current Visit: Yes Status: Acute Assessment and Plan: patient reports urinary symptoms of dysuria, frequency and urgency for the past couple of days. urine culture positive for gram negative rods. started on levofloxacin 750mg/IV daily. (13) Depression Current Visit: Yes Status: Chronic Assessment and Plan: on duloxetine 60mg/PO HS DVT Prophylaxis: patient on an oral anticoagulant due to Hx of A.fib - Summary of Assessment and Plan Summary of Assessment and Plan: Patient to remain in the hospital due to acute hypercapnic, hypoxemic respiratory failure. - Time Spent with Patient Total time spent is greater than 50% in coordination of care (as documented) at patient's floor/unit and/or counseling patient: Greater than 35 minutes Plan of Care Discussed with: patient (and the nurse) Internal Medicine: Result - Labs CBC & Chem 7: 07/20/18 03:33 07/20/18 03:33 Labs: Short CBC 07/20/18 Range/Units 03:33 WBC 11.5 H (4.3-11.1) K/mcL Hgb 12.8 (11.5-15.4) g/dL Hct 41.5 (35.3-44.9) % Plt Count 276 (140-400) K/mcL Neutrophils # 10.6 H (1.6-8.9) K/mcL BMP 07/20/18 03:33 Sodium 139 Potassium 4.7 Chloride 98 Carbon Dioxide 39 H BUN 33 H Creatinine 0.97 Glucose 404 H Calcium 9.8 Urine 07/20/18 Range/Units 08:18 Urine Color Red A (Yellow) Urine Clarity Turbid A (Clear) Urine pH 5.5 (5.0-8.0) pH Units Ur Specific [place] 1.026 H (1.010-1.025) Urine Protein 30 H (Neg-Trace) mg/dL Urine Glucose (UA) >=1000 H (Normal) mg/dL - ABG Interpretation ABG results: ABG ABG pH 7.44 pH Units (7.32-7.45) 07/20/18 04:46 ABG pCO2 65 mmHg (35-45) H 07/20/18 04:46 ABG pO2 105 mmHg (85-104) H 07/20/18 04:46 ABG O2 Saturation 98 % (95-98) 07/20/18 04:46 PT/INR, D-dimer PT 22.6 Seconds (9.4-12.1) H 07/20/18 03:33 - Impressions Impressions Chest CT 07/19/18 15:01 IMPRESSION: 1. Areas of atelectasis bilaterally. No convincing evidence of pneumonia or other acute process. 2. Small 5 mm right upper lobe ground-glass nodule. No follow-up is suggested per the management recommendations below. RECOMMENDATIONS: Fleischner Society guidelines for follow-up and management of incidentally detected subsolid pulmonary nodules: Solitary ground glass nodule < 6 mm - No routine follow-up. > than or equal to 6 mm - CT at 6-12 months to confirm persistence, then CT every 2 years until 5 years. - Low risk patients include individuals with minimal or absent history of smoking and other known risk factors. - High risk patients include individuals with a history or smoking or known risk factors. Radiology 2017 http://pubs.rsna.org/doi/full/10.1148/radiol.[email or web address] D/ / 07/19/2018 17:02:44 Tamir Santillan MD / gita Interpreting Provider: Tamir Santillan MD Echocardiogram 07/19/18 15:42 Impressions: Technically sub-optimal due to body habitus. LVEF 60%. Normal LV chamber size and function. Mild concentric left ventricular hypertrophy. Indeterminate diastolic function. Right ventricle was not well visualized. Grossly, function appears normal. No pulmonary hypertension identified. RVSP was not well obtained due to poor visualization and TR jet.. No obvious significant valvular dysfunction. Findings: Study Quality * Technically sub-optimal due to body habitus. ECG Findings * Atrial fibrillation, bundle branch block. Left Ventricle * LVEF 60%. Not all segments were well visualized, but overall function is normal. * Normal LV chamber size. * Mild concentric left ventricular hypertrophy. * Indeterminate diastolic function. * Atypical septal motion consistent with bundle branch block. Right Ventricle * Right ventricle was not well visualized. Grossly, function appears normal. Left Atrium * Moderately dilated left atrium. Right Atrium * Right atrium is not well visualized. Aortic Valve * Aortic valve not well visualized. * No aortic regurgitation. * No aortic stenosis. Mitral Valve * Normal mitral valve structure and function. * No mitral regurgitation. * No mitral stenosis. Tricuspid Valve * Tricuspid valve not well visualized. * Trace tricuspid regurgitation. * No pulmonary hypertension identified. RVSP was not well obtained due to poor visualization and TR jet.. Pulmonic Valve * Pulmonic valve not well visualized. Aorta * Normally sized aortic root. Pericardium * The pericardium appears normal. IVC * The IVC is not well evaluated. Pulmonary Artery * Pulmonary artery not well visualized. Consult Discharge Plan - Plan Referrals: Corinne Mullins, PATTERN MAKER PROGRAMER [Primary Care Provider] - (7) Atrial fibrillation Qualifiers: Atrial fibrillation type: chronic Qualified Code(s): I48.2 - Chronic atrial fibrillation (8) CAD (coronary artery disease) Qualifiers: Coronary Disease-Associated Artery/Lesion type: [place] artery [place] vs. transplanted heart: [place] heart Associated angina: without angina Qualified Code(s): I25.10 - Atherosclerotic heart disease of [place] coronary artery without angina pectoris (9) HTN (hypertension) Qualifiers: Hypertension type: essential hypertension Qualified Code(s): I10 - Essential (primary) hypertension (12) UTI (urinary tract infection) Qualifiers: Urinary tract infection type: site unspecified Hematuria presence: with hematuria Qualified Code(s): N39.0 - Urinary tract infection, site not specified; R31.9 - Hematuria, unspecified (13) Depression Qualifiers: Depression Type: unspecified Qualified Code(s): F32.9 - Major depressive disorder, single episode, unspecified
[2018-07-20] MEDS ORDERED: Insulin LISPRO 300 UNITS/3 ML VIAL SQ ONE ×3 (14:34→23:54)
[2018-07-20] MEDS: Levofloxacin 750 MG/150 ML 750 MG/150 ML BAG IVPB SCH (14:36)
[2018-07-20] MEDS ORDERED: Azithromycin 250 MG in D5% in Water 250 ML IVPB SCH (16:00)
[2018-07-20] MEDS: *HR* Rivaroxaban 10 MG TABLET PO SCH (16:50)
[2018-07-20] MEDS ORDERED: Acetaminophen 325 MG TABLET PO PRN (20:24)
[2018-07-21 05:39] LABS: Basophils # 0.1 K/mcL (0.0-0.2); Basophils % 0.5 %; Hematocrit 39.2 % (35.3-44.9); Hemoglobin 12.5 g/dL (11.5-15.4); Immature Granulocytes % 3.6 % (0-4); Lymphocytes # 0.8 K/mcL (0.6-4.6); Lymphocytes % 5.7 %; Mean Corpuscular HGB Conc 31.9 g/dL (31.6-35.5); Mean Corpuscular Hemoglobin 33.6 pg (28.0-33.3); Mean Corpuscular Volume 105.4 fL (83.0-100.0); Mean Platelet Volume 9.3 fL (9.4-12.4); Monocytes # 0.8 K/mcL (0.0-1.3); Monocytes % 5.3 %; Neutrophils # 12.6 K/mcL (1.6-8.9); Nucleated Red Blood Cells 0.1 /100 WBC (0); Platelet Count 318 K/mcL (140-400); Red Blood Count 3.72 M/mcL (3.82-4.97); Red Cell Distribution Width 15.5 % (11.5-14.5); Segmented Neutrophils % 84.9 %
[2018-07-21 05:58] LABS: Calcium 9.5 mg/dL (8.6-10.3); Magnesium 2.2 mg/dL (1.6-2.6); Phosphorous 3.5 mg/dL (2.7-4.5); Potassium 4.5 mEq/L (3.5-5.1)
[2018-07-21 06:17] LABS: Folate 15.3 ng/mL (3.0-16.0)
[2018-07-21] MEDS: Insulin LISPRO 300 UNITS/3 ML VIAL SQ SCH ×6 (06:23→21:52)
[2018-07-21] MEDS: MethylPREDNISolone 40 MG/ML VIAL IVP SCH (06:23)
[2018-07-21] MEDS ORDERED: Insulin LISPRO 300 UNITS/3 ML VIAL SQ SCH ×2 (08:00→08:45)
[2018-07-21] MEDS: Furosemide 40 MG/4 ML VIAL IVP SCH ×2 (08:29→17:17)
[2018-07-21] MEDS: Nystatin POWDER 30 GM BOTTLE TP SCH ×2 (08:30→21:51)
[2018-07-21] MEDS: Diltiazem CD (24hr) 240 MG CAPSULE PO SCH (08:30)
[2018-07-21] MEDS: Sennosides 8.6 MG TABLET PO SCH (08:30)
[2018-07-21] MEDS: Aspirin Enteric Coated 81 MG Tablet PO SCH (08:30)
[2018-07-21] MEDS: Levofloxacin 750 MG/150 ML 750 MG/150 ML BAG IVPB SCH (08:30)
[2018-07-21] MEDS: Metoprolol XL (24 HR) Succ 50 MG TAB.ER.24H PO SCH (08:30)
[2018-07-21] MEDS ORDERED: Insulin DETEMIR 100 UNIT/ML X5UNITS SQ SCH ×3 (09:00→21:00)
[2018-07-21] MEDS: Budesonide/Formoterol 160/4.5 1 PUFF INH IH SCH ×2 (10:48→20:15)
--- NOTE | 2018-07-21 11:02 | Internal Med Progress Note ---
Hospitalist Progress Note - Encounter Date of Encounter: 07/21/18 Time of Encounter: 11:00 - Subjective Interval History: I have seen and evaluated the patient at bedside. Patient reports significant improvement on her breathing, does not feel as short of breath as when she came to the ED, denies chest pain, nausea or vomiting. denies abdominal pain. patient reports she has not been able to walk for about a year after she fell at home. had tried multiple rehabilitation therapies with no success - Exam Vitals: Temp Pulse Resp BP Pulse Ox 97.8 F 97 20 127/85 94 07/21/18 10:42 07/21/18 10:42 07/21/18 10:42 07/21/18 10:42 07/21/18 10:42 Exam: Vitals: Reviewed General: Morbidly obese, Alert and oriented 4. In mild distress due to shortness of breath. Cardiovascular: Tachycardic, normal S1 & S2, no rubs, murmurs or gallops. Pulse regular. Lungs: Clear to auscultation bilaterally, no wheezes or crackles. Abdomen: Obese, Soft, non-tender, no rigidity. NABS in all 4 quadrants. Extremities: 1+ pitting edema in the lower extremity bilaterally. Neurological: Normal cognition Rest of the physical exam is non contributory - Assessment and Plan (1) Acute exacerbation of chronic obstructive airways disease Current Visit: Yes Status: Acute Assessment and Plan: patient respiratory status continues to improve. discontinue IV methyl-prednisolone started on Prednisone 40mg/PO daily continue bronchodilators Q4RT on symbicort continue O2 by nasal cannula, titrate for O2Sat >88% continue levofloxacin 750mg/IV daily (2) COPD with acute exacerbation Current Visit: Yes Status: Acute Assessment and Plan: plan of care as above (3) Diabetes mellitus type 2 in obese Current Visit: Yes Status: Chronic Assessment and Plan: as per patient's at bedside the patient has insulin resistant diabetes. she is on a very high dose of insulin at home 50 units of long acting and 40 units of short acting with meals and her pre-prandial glucose is usually 250-270 and post prandial usually in the 400. blood sugar today not controll, likely due to patient being on high dose steroids levemir increased to 50 units BID and lispro to 20 units ac. continue lispro medium dose sliding scale. carbs controlled diet (4) Diastolic CHF, acute on chronic Current Visit: Yes Status: Suspected Assessment and Plan: patient is euvolemic. continue furosemide 40mg/IV BID. plus daily weight and strict intake and output. fluids restriction to 1.5 litters (5) Dyslipidemia Current Visit: No Status: Chronic Assessment and Plan: on atorvastatin 80mg/PO HS (6) Macrocytosis Current Visit: No Status: Chronic Assessment and Plan: unclear etiology. b12 and folate within normal (7) Atrial fibrillation Current Visit: No Status: Chronic Assessment and Plan: rate controlled on diltiazem and metoprolol. on rivaroxavan 20mg/PO daily for secondary stroke prevention (8) CAD (coronary artery disease) Current Visit: No Status: Chronic Assessment and Plan: on aspirin 81mg/PO daily (9) HTN (hypertension) Current Visit: No Status: Chronic Assessment and Plan: Blood pressure is well controlled on diltiazem, and metoprolol. (10) Morbid obesity Current Visit: No Status: Chronic (11) MALLORY (obstructive sleep apnea) Current Visit: No Status: Chronic Assessment and Plan: Nocturnal BiPAP. (12) UTI (urinary tract infection) Current Visit: Yes Status: Acute Assessment and Plan: Urine culture grew Klebsiella pneumonia. Continue levofloxacin 750 g IV daily. Patient reports improvement in her urinary symptoms. Denies dysuria frequency and urgency. (13) Depression Current Visit: Yes Status: Chronic Assessment and Plan: Continue duloxetine 60mg/PO HS DVT Prophylaxis: Patient on an oral anticoagulant. - Summary of Assessment and Plan Summary of Assessment and Plan: Patient admitted to hospital due to acute on chronic hypoxemic and hypercapnic respiratory failure. Improving potential discharge tomorrow morning. - Time Spent with Patient Total time spent is greater than 50% in coordination of care (as documented) at patient's floor/unit and/or counseling patient: Greater than 35 minutes (40) Plan of Care Discussed with: patient (her and the nurse.) Internal Medicine: Result - Labs CBC & Chem 7: 07/21/18 05:15 07/21/18 05:15 Labs: Short CBC 07/21/18 Range/Units 05:15 WBC 14.8 H (4.3-11.1) K/mcL Hgb 12.5 (11.5-15.4) g/dL Hct 39.2 (35.3-44.9) % Plt Count 318 (140-400) K/mcL Neutrophils # 12.6 H (1.6-8.9) K/mcL BMP 07/21/18 05:15 Sodium 138 Potassium 4.5 Chloride 95 L Carbon Dioxide 35 H BUN 42 H Creatinine 1.11 Glucose 510 H* Calcium 9.5 - ABG Interpretation ABG results: ABG ABG pH 7.44 pH Units (7.32-7.45) 07/20/18 04:46 ABG pCO2 65 mmHg (35-45) H 07/20/18 04:46 ABG pO2 105 mmHg (85-104) H 07/20/18 04:46 ABG O2 Saturation 98 % (95-98) 07/20/18 04:46 PT/INR, D-dimer PT 22.6 Seconds (9.4-12.1) H 07/20/18 03:33 - Impressions Impressions Chest CT 07/19/18 15:01 IMPRESSION: 1. Areas of atelectasis bilaterally. No convincing evidence of pneumonia or other acute process. 2. Small 5 mm right upper lobe ground-glass nodule. No follow-up is suggested per the management recommendations below. RECOMMENDATIONS: Fleischner Society guidelines for follow-up and management of incidentally detected subsolid pulmonary nodules: Solitary ground glass nodule < 6 mm - No routine follow-up. > than or equal to 6 mm - CT at 6-12 months to confirm persistence, then CT every 2 years until 5 years. - Low risk patients include individuals with minimal or absent history of smoking and other known risk factors. - High risk patients include individuals with a history or smoking or known risk factors. Radiology 2017 http://pubs.rsna.org/doi/full/10.1148/radiol.[email or web address] D/ / 07/19/2018 17:02:44 Tamir Santillan MD / gita Interpreting Provider: Tamir Santillan MD Consult Discharge Plan - Plan Referrals: Corinne Mullins, ACETYLENE OPERATOR [Primary Care Provider] - (7) Atrial fibrillation Qualifiers: Atrial fibrillation type: chronic Qualified Code(s): I48.2 - Chronic atrial fibrillation (8) CAD (coronary artery disease) Qualifiers: Coronary Disease-Associated Artery/Lesion type: [place] artery [place] vs. transplanted heart: [place] heart Associated angina: without angina Qualified Code(s): I25.10 - Atherosclerotic heart disease of [place] coronary artery with out angina pectoris (9) HTN (hypertension) Qualifiers: Hypertension type: essential hypertension Qualified Code(s): I10 - Essential (primary) hypertension (12) UTI (urinary tract infection) Qualifiers: Urinary tract infection type: site unspecified Hematuria presence: with hematuria Qualified Code(s): N39.0 - Urinary tract infection, site not specified; R31.9 - Hematuria, unspecified (13) Depression Qualifiers: Depression Type: unspecified Qualified Code(s): F32.9 - Major depressive disorder, single episode, unspecified
[2018-07-21] MEDS: *HR* Rivaroxaban 10 MG TABLET PO SCH (17:16)
[2018-07-22] MEDS: Budesonide/Formoterol 160/4.5 1 PUFF INH IH SCH (07:48)
[2018-07-22] MEDS: Furosemide 40 MG/4 ML VIAL IVP SCH (08:48)
[2018-07-22] MEDS: Insulin LISPRO 300 UNITS/3 ML VIAL SQ SCH ×4 (08:48→11:53)
[2018-07-22] MEDS: Metoprolol XL (24 HR) Succ 50 MG TAB.ER.24H PO SCH (08:49)
[2018-07-22] MEDS: Sennosides 8.6 MG TABLET PO SCH (08:49)
[2018-07-22] MEDS: Aspirin Enteric Coated 81 MG Tablet PO SCH (08:49)
[2018-07-22] MEDS: Diltiazem CD (24hr) 240 MG CAPSULE PO SCH (08:50)
[2018-07-22] MEDS: Nystatin POWDER 30 GM BOTTLE TP SCH (08:50)
[2018-07-22] MEDS ORDERED: levoFLOXacin 750 MG TABLET PO SCH (09:00)
[2018-07-22] MEDS ORDERED: Insulin DETEMIR 100 UNIT/ML X5UNITS SQ SCH (09:00)
[2018-07-22] MEDS ORDERED: predniSONE 20 MG TABLET PO SCH (09:00)
[2018-07-22 10:05] LABS: BUN/Creatinine Ratio 37 (6-26); Blood Urea Nitrogen 40 mg/dL (8-23); Calcium 9.2 mg/dL (8.6-10.3); Carbon Dioxide 41 mEq/L (23-29); Chloride 93 mEq/L (98-107); Glucose 396 mg/dL (70-105); Osmolality,Calculated 322 (280-300); Potassium 4.1 mEq/L (3.5-5.1); Sodium 143 mEq/L (136-145); eGFR For Non-African Americans 50 (> 60)
--- NOTE | 2018-07-22 10:28 | Discharge Summary ---
Orders not resulted at time of discharge: Pending orders 07/19/18 11:07 Culture,Blood [BC] Stat 07/21/18 05:15 Legionella Type 1 Antibody,IgM AM 0400 Date of Encounter: 07/22/18 Time of Encounter: 10:24 - Discharge Diagnosis (1) Acute exacerbation of chronic obstructive airways disease Priority: Primary Status: Resolved (2) COPD with acute exacerbation Priority: Primary Status: Resolved (3) Diabetes mellitus type 2 in obese Priority: Secondary Status: Chronic (4) Diastolic CHF, acute on chronic Priority: Secondary Status: Suspected (5) Dyslipidemia Priority: Secondary Status: Chronic (6) Macrocytosis Priority: Secondary Status: Chronic (7) Atrial fibrillation Priority: Secondary Status: Chronic Qualifiers: Atrial fibrillation type: chronic Qualified Code(s): I48.2 - Chronic atrial fibrillation (8) CAD (coronary artery disease) Priority: Secondary Status: Chronic Qualifiers: Coronary Disease-Associated Artery/Lesion type: [place] artery [place] vs. transplanted heart: [place] heart Associated angina: without angina Qualified Code(s): I25.10 - Atherosclerotic heart disease of [place] coronary artery without angina pectoris (9) HTN (hypertension) Priority: Secondary Status: Chronic Qualifiers: Hypertension type: essential hypertension Qualified Code(s): I10 - Essential (primary) hypertension (10) Morbid obesity Priority: Secondary Status: Chronic (11) MALLORY (obstructive sleep apnea) Priority: Secondary Status: Chronic (12) UTI (urinary tract infection) Priority: Secondary Status: Acute Qualifiers: Urinary tract infection type: site unspecified Hematuria presence: with hematuria Qualified Code(s): N39.0 - Urinary tract infection, site not specified; R31.9 - Hematuria, unspecified (13) Depression Priority: Secondary Status: Chronic Qualifiers: Depression Type: unspecified Qualified Code(s): F32.9 - Major depressive disorder, single episode, unspecified Hospital course: Ms. Em is a 77 year old female PMH of former smoker, arthritis, atrial fibrillation, obesity, uterine and kidney cancer, COPD, CAD, diabetes uncontrolled despite insulin, HLD, HTN, previous myocardial infarction in 2017 requiring 2 stents, and renal disease present with shortness of breath. Patient was admitted to the hospital due to COPD exacerbation, and acute hypoxic and hypercapnic respiratory failure, PCO2 of 73. Patient was managed with IV steroids, BiPAP, and empirical IV antibiotics. Patient also reported dysuria and frequency. UA was positive for a urinary tract infection, urine culture grew: Pansensitive Klebsiella pneumonia. Blood cultures no growth. Chest CT: 1. Areas of atelectasis bilaterally. No convincing evidence of pneumonia or other acute process. 2. Small 5 mm right upper lobe ground-glass nodule. No follow-up is suggested per the management recommendations below. Patient acute symptoms have resolved, and patient is back to her baseline respiratory carreon saturating more than 92% on 3 L of oxygen by nasal cannula. Patient is hemodynamically stable to be discharged, recommended to follow-up with her primary care physician within a week of hospital discharge. - Time Spent with Patient Total time spent providing and/or coordinating discharge services: Time spent: Greater than 30 minutes (35) - Discharge Medications Prescriptions: New levoFLOXacin [Levaquin] 750 mg PO DAILY 5 Days #5 tablet Budesonide/Formoterol 160/4.5 [Symbicort 160/4.5] 2 puff IH BIDR 30 Days #3 inh Continued Ipratropium/Albuterol Neb [Duoneb] 3 ml IH Q6HR PRN PRN Reason: Shortness Of Breath Albuterol Sulfate [Proair Hfa] 2 puff IH Q4H PRN PRN Reason: Shortness Of Breath Fluticasone Propionate [Flovent Hfa] 2 puff IH BID PRN PRN Reason: Shortness Of Breath Vit A/Vit C/Vit E/Zinc/Copper [Preservision Areds Tablet] 1 tab PO HS Omeprazole [PriLOSEC] 20 mg PO DAILY PRN PRN Reason: Heartburn Gabapentin [Neurontin] 600 mg PO TID PRN PRN Reason: Pain Duloxetine HCl [Cymbalta] 60 mg PO HS Insulin LISPRO [HumaLOG] 45 units SQ BID Insulin DETEMIR [Levemir] 50 unit SQ BID Multivit-Min/Iron/Folic/Lutein [Centrum Silver Women Tablet] 1 tab PO DAILY Tiotropium Br/Olodaterol HCl [Stiolto Respimat Inhal Lester] 2 puff IH DAILY Sennosides [Senna] 17.2 mg PO DAILY Rivaroxaban [Xarelto] 20 mg PO QPM Metoprolol Succinate 100 mg PO DAILY Diltiazem HCl [Diltiazem 24Hr Cd] 240 mg PO DAILY Aspirin [Adult Aspirin] 81 mg PO DAILY Furosemide [Lasix] 40 mg PO BID Home Medications: Albuterol Sulfate [Proair Hfa] 2 puff IH Q4H PRN 07/19/18 [History] Aspirin [Adult Aspirin] 81 mg PO DAILY 07/19/18 [History] Diltiazem HCl [Diltiazem 24Hr Cd] 240 mg PO DAILY 07/19/18 [History] Duloxetine HCl [Cymbalta] 60 mg PO HS 07/19/18 [History] Fluticasone Propionate [Flovent Hfa] 2 puff IH BID PRN 07/19/18 [History] Furosemide [Lasix] 40 mg PO BID 07/19/18 [History] Gabapentin [Neurontin] 600 mg PO TID PRN 07/19/18 [History] Insulin DETEMIR [Levemir] 50 unit SQ BID 07/19/18 [History] Insulin LISPRO [HumaLOG] 45 units SQ BID 07/19/18 [History] Ipratropium/Albuterol Neb [Duoneb] 3 ml IH Q6HR PRN 07/19/18 [History] Metoprolol Succinate 100 mg PO DAILY 07/19/18 [History] Multivit-Min/Iron/Folic/Lutein [Centrum Silver Women Tablet] 1 tab PO DAILY 07/19/18 [History] Omeprazole [PriLOSEC] 20 mg PO DAILY PRN 07/19/18 [History] Rivaroxaban [Xarelto] 20 mg PO QPM 07/19/18 [History] Sennosides [Senna] 17.2 mg PO DAILY 07/19/18 [History] Tiotropium Br/Olodaterol HCl [Stiolto Respimat Inhal Lester] 2 puff IH DAILY 07/19/18 [History] Vit A/Vit C/Vit E/Zinc/Copper [Preservision Areds Tablet] 1 tab PO HS 07/19/18 [History] Budesonide/Formoterol 160/4.5 [Symbicort 160/4.5] 2 puff IH BIDR 30 Days #3 inh 07/22/18 [Rx] levoFLOXacin [Levaquin] 750 mg PO DAILY 5 Days #5 tablet 07/22/18 [Rx] Allergies/Adverse Reactions: Allergy/AdvReac Type Severity Reaction Status Date / Time hydrocodone [From Vicodin] AdvReac Nausea Verified 07/19/18 13:57 metformin [From Glucophage] AdvReac Diarrhea Verified 07/19/18 13:57 Date of admission: 07/19/18 16:06 Primary care physician: Corinne Mullins CNP Consults: 07/20/18 09:16 Consult to Nurse Navigator [CONS] Routine Comment: copd, chf - Constitutional Vitals: Temp Pulse Resp BP Pulse Ox 97.8 F 96 18 120/82 95 07/22/18 07:23 07/22/18 07:23 07/22/18 07:49 07/22/18 07:23 07/22/18 07:49 General appearance: Present: A&O X 3 Exam: Vitals: Reviewed General: Morbidly obese, Alert and oriented 4. In no acute distress. Cardiovascular: irreguarly irregular, normal S1 & S2, no rubs, murmurs or gallops. Pulse regular. Lungs: Clear to auscultation bilaterally, no wheezes or crackles. Abdomen: Obese, Soft, non-tender, no rigidity. NABS in all 4 quadrants. Extremities: 1+ pitting edema in the lower extremity bilaterally. Neurological: Normal cognition Rest of the physical exam is non contributory - Patient Status Disposition: Home Health Service Condition: Good Functional capacity at discharge: bed bound Overall status at discharge: patient is back to baseline - Discharge Instructions Follow Up With: Corinne Mullins CNP [Primary Care Provider] - - Diet and Activity Activity: as per physical therapy Diet: diabetic diet, low salt diet
--- NOTE | 2018-07-22 10:38 | Physician Discharge Referral ---
Home Health/Hosp Referral Info Transfer to: Home Health - Diagnosis (1) Acute exacerbation of chronic obstructive airways disease Priority: Primary Status: Resolved (2) COPD with acute exacerbation Priority: Secondary Status: Resolved (3) Diabetes mellitus type 2 in obese Priority: Secondary Status: Chronic (4) Diastolic CHF, acute on chronic Priority: Secondary Status: Suspected (5) Dyslipidemia Priority: Secondary Status: Chronic (6) Macrocytosis Priority: Secondary Status: Chronic (7) Atrial fibrillation Priority: Secondary Status: Chronic (8) CAD (coronary artery disease) Priority: Secondary Status: Chronic (9) HTN (hypertension) Priority: Secondary Status: Chronic (10) Morbid obesity Priority: Secondary Status: Chronic (11) MALLORY (obstructive sleep apnea) Priority: Secondary Status: Chronic (12) UTI (urinary tract infection) Priority: Secondary Status: Acute (13) Depression Priority: Secondary Status: Chronic - Respiratory Orders Oxygen / L per min (3 litters) Smoking Cessation: Smoking cessation has been advised. For more information, call the [employer] Tobacco Quit Line at 4-924-UIVI-NOW. - Diet/Nutrition Diet/Nutrition Orders: Regular - Activity Activity Orders: Bedrest - Services Needed Following services are medically necessary services: Nursing, Home Health Aide, Physical Therapy, Occupational Therapy - Transfer Medications Prescriptions: levoFLOXacin [Levaquin] 750 mg PO DAILY 5 Days #5 tablet Budesonide/Formoterol 160/4.5 [Symbicort 160/4.5] 2 puff IH BIDR 30 Days #3 inh Home Medications: Albuterol Sulfate [Proair Hfa] 2 puff IH Q4H PRN 07/19/18 [History] Aspirin [Adult Aspirin] 81 mg PO DAILY 07/19/18 [History] Diltiazem HCl [Diltiazem 24Hr Cd] 240 mg PO DAILY 07/19/18 [History] Duloxetine HCl [Cymbalta] 60 mg PO HS 07/19/18 [History] Fluticasone Propionate [Flovent Hfa] 2 puff IH BID PRN 07/19/18 [History] Furosemide [Lasix] 40 mg PO BID 07/19/18 [History] Gabapentin [Neurontin] 600 mg PO TID PRN 07/19/18 [History] Insulin DETEMIR [Levemir] 50 unit SQ BID 07/19/18 [History] Insulin LISPRO [HumaLOG] 45 units SQ BID 07/19/18 [History] Ipratropium/Albuterol Neb [Duoneb] 3 ml IH Q6HR PRN 07/19/18 [History] Metoprolol Succinate 100 mg PO DAILY 07/19/18 [History] Multivit-Min/Iron/Folic/Lutein [Centrum Silver Women Tablet] 1 tab PO DAILY 07/19/18 [History] Omeprazole [PriLOSEC] 20 mg PO DAILY PRN 07/19/18 [History] Rivaroxaban [Xarelto] 20 mg PO QPM 07/19/18 [History] Sennosides [Senna] 17.2 mg PO DAILY 07/19/18 [History] Tiotropium Br/Olodaterol HCl [Stiolto Respimat Inhal [place]] 2 puff IH DAILY 07/19/18 [History] Vit A/Vit C/Vit E/Zinc/Copper [Preservision Areds Tablet] 1 tab PO HS 07/19/18 [History] Budesonide/Formoterol 160/4.5 [Symbicort 160/4.5] 2 puff IH BIDR 30 Days #3 inh 07/22/18 [Rx] levoFLOXacin [Levaquin] 750 mg PO DAILY 5 Days #5 tablet 07/22/18 [Rx] Allergies/Adverse Reactions: Allergy/AdvReac Type Severity Reaction Status Date / Time hydrocodone [From Vicodin] AdvReac Nausea Verified 07/19/18 13:57 metformin [From Glucophage] AdvReac Diarrhea Verified 07/19/18 13:57 Certification: Further, I certify that my clinical findings support that this patient is homebound (i.e. absences from home require considerable and taxing effort and are for medical reasons or alevism services or infrequently or short duration when for other reasons) because: Homebound Reason: Patient requires assistance of a person or device to safely leave home Attestation: My signature below is to certify that this patient is under my care and that I, or nurse practitioner, or a physician's grants assistant working with me, has a [id number] encounter with this patient.
[2018-07-22 10:47] VITALS: BP 108/73
[2018-07-23] MEDS ORDERED: Furosemide 40 MG/4 ML VIAL IVP SCH (09:00)
== END 2018-07-22 12:38 | disposition home health service (06) | DRG 190 ==
LOC: EMEROOARM 09:57 → 2ANU 09:57 → SUATTDRO 16:06
PROVIDERS: ADMIT Student in an Organized Health Care Education/Training Program; ATTEND Internal Medicine